=== PATIENT | female | born 1985 | race Caucasian/White ===

== ENCOUNTER 2020-06-12 11:52 | Emergency (ER) | payer BC, SELFPAY ==
[2020-06-12 12:09] VITALS: BP 122/77; PULSE 74; RESP 18; TEMP 36.6; O2SAT 97
--- NOTE | 2020-06-12 12:42 | ED.DENTAL ---
HPI - Dental/Oral General Chief complaint: Dental/Oral Stated complaint: tooth pain Time Seen by Provider: 06/12/20 12:38 Source: patient and RN notes reviewed Mode of arrival: ambulatory Limitations: no limitations History of Present Illness HPI Narrative: Patient presents today complaining of pain to the left lower wisdom tooth and surrounding gumline x3 to 4 days. States it has been painful on and off for the past year, but she has not had dental insurance coverage for several years. States she may have some coverage now ends, try to make an appointment with the dentist. Denies fever, shortness of breath, difficulty swallowing. Currently rates her pain 6/10 and has been taking ibuprofen with mild relief. MD Complaint: tooth pain Related Data Home Medications Medication Instructions Recorded Confirmed sertraline 100 mg PO DAILY 06/12/20 06/12/20 tizanidine 4 mg PO DAILY PRN 06/12/20 06/12/20 Allergies Allergy/AdvReac Type Severity Reaction Status Date / Time No Known Allergies Allergy Unverified 08/03/17 19:35 Review of Systems Review of Systems: Narrative: CONSTITUTIONAL: Denies body aches, fever, chills, or sweats. EYES: Denies visual changes, redness, or discharge. ENT: Denies rhinorrhea, congestion, sore throat, or otalgia.+ Tooth pain . RESPIRATORY: Denies cough or dyspnea. GASTROINTESTINAL: Denies abdominal pain, nausea, vomiting, or diarrhea. GENITOURINARY: Denies dysuria or hematuria. SKIN: Denies rash, itching, or wounds. MUSCULOSKELETAL: Denies back pain, joint pain, or myalgia. NEUROLOGIC: Denies headache, numbness, tingling, or weakness. PSYCH: Denies depression or anxiety. FOR[facility]LY [facility] Past Medical History Medical History (Updated 06/12/20 @ 12:46 by Chelsie Tipton, MARIA TERESA, ) Anxiety Depression Surgical History Surgical History (Updated 06/12/20 @ 12:44 by Chelsie Tipton, MARIA TERESA, BC) H/O tubal ligation History of appendectomy Comments At time of signature, I have reviewed and agree with nursing past medical, surgical, social and family history unless otherwise noted. Please see nursing chart for further information. There is no relevant family history pertinent to the presenting complaint Exam Narrative: Exam Narrative: GENERAL: Well-appearing, well-nourished, and in no acute distress. HEAD: Normocephalic, atraumatic. EYES: EOMI. No redness or drainage. Conjunctivae normal. ENT: Mucous membranes pink and moist. Nares clear. No rhinorrhea. Throat normal. Uvula midline. Pain to tooth #17 with mild surrounding gum swelling and erythema. No obvious periapical abscess. No facial swelling noted. NECK: Normal AROM. Supple. No lymphadenopathy. CHEST: No respiratory distress. Clear to auscultation. HEART: Regular rate and rhythm. No murmur appreciated. Normal peripheral pulses. EXTREMITIES: Normal range of motion. No edema. SKIN: Warm, dry, no rash. Capillary refill normal. Normal skin turgor. NEURO: No focal deficits. Alert and oriented x3. Gait steady. PSYCH: Normal affect. No signs of depression or anxiety. Course Vital Signs Vital signs: Vital Signs Temperature 97.9 F 06/12/20 12:09 Pulse Rate 74 06/12/20 12:09 Respiratory Rate 18 06/12/20 12:09 Blood Pressure 122/77 06/12/20 12:09 Pulse Oximetry 97 06/12/20 12:09 Temperature 97.9 F 06/12/20 12:09 Pulse Rate 74 06/12/20 12:09 Respiratory Rate 18 06/12/20 12:09 Blood Pressure 122/77 06/12/20 12:09 Pulse Oximetry 97 06/12/20 12:09 Reviewed. Pt has been instructed to follow up with her PCP regarding her elevated blood pressure today. MDM - Dental/Oral Differential Diagnosis Differential diagnosis: Likely gingival abscess, dental caries, toothache and dental abscess Critical Care Time Critical Care Time Critical Care Time: No Discharge Plan Discharge Clinical Impression: Dentalgia Patient Disposition: Home, Self-Care Condition: Stable Instructions: Antibiotic Form, Toothache
== END 2020-06-12 12:50 | disposition home or self-care (01) ==
PROVIDERS: Emergency Provider Nurse Practitioner; PCP Nurse Practitioner Family
DX: K08.89 Other specified disorders of teeth and supporting structures (principal); F41.9 Anxiety disorder, unspecified; F32.9 Major depressive disorder, single episode, unspecified
CPT/HCPCS: 99213; G0463

== ENCOUNTER 2020-10-07 15:21 | Emergency (ER) | payer BC, SELFPAY ==
[2020-10-07 15:30] VITALS: BP 122/77; PULSE 86; RESP 20; TEMP 36.4; O2SAT 98
[2020-10-07 15:39] VITALS: BP 122/77; PULSE 86; RESP 20; TEMP 36.4; O2SAT 98
--- NOTE | 2020-10-07 16:17 | ED.URI ---
HPI - URI/Sore Throat General Chief Complaint: Upper Respiratory Infection Stated Complaint: congestion fatigue ear pain and cough Time Seen by Provider: 10/07/20 16:17 Source: patient, RN notes reviewed and old records reviewed Mode of arrival: ambulatory Limitations: no limitations History of Present Illness HPI Narrative: 35-year-old female who presents to [facility] with complaints of sore throat, cough, fatigue, body aches, and itchy ears since yesterday. Patient states that she has been taking Sudafed, Ibuprofen and she has also started taking some left over Augmentin that she had. Patient reports that she has had some greenish colored nasal drainage and some post nasal drainage, denies any known fevers, chills, or sweats, denies any shortness of breath at rest or with activity. Patient does have history of tobacco abuse. MD elicited complaint: cough, sore throat, rhinorrhea and nasal congestion Pertinent past history: other (tpbacco abuse) Onset (ago): day(s) (day 2 of symptoms) Consistency: constant Severity: moderate Pain scale (0-10): 6 Description of mucous: green Able to tolerate fluids by mouth: Yes Exacerbating factors: swallowing Relieving factors: nothing Associated symptoms: myalgias, rhinorrhea, nasal congestion, sore throat, cough and ear pain (itchy) Treatments prior to arrival: ibuprofen and other (sudafed and left over Augmentin) Related Data Home Medications Medication Instructions Recorded Confirmed sertraline 100 mg PO DAILY 06/12/20 10/07/20 tizanidine 4 mg PO DAILY PRN 06/12/20 10/07/20 Allergies Allergy/AdvReac Type Severity Reaction Status Date / Time No Known Allergies Allergy Verified 10/07/20 15:39 Review of Systems Review of Systems: Narrative: CONSTITUTIONAL: Denies fever, chills, or sweats. EYES: Denies visual changes, redness, or discharge. ENT: Positive rhinorrhea, congestion, sore throat, bilateral itchy ears no robyn CARDIOVASCULAR: Denies chest pain, palpitations, or edema. RESPIRATORY positive cough denies dyspnea. GASTROINTESTINAL: Denies abdominal pain, nausea, vomiting, or diarrhea. GENITOURINARY: Denies dysuria or hematuria. SKIN: Denies rash or itching. MUSCULOSKELETAL: history of chronic back pain,no specific joint pain, positive body aches and fatigue NEUROLOGIC: Denies headache, numbness, or weakness. PSYCHIATRIC: Positive history of anxiety or depression. All systems reviewed & are unremarkable except as noted in HPI and below PMFSH Past Medical History Medical History (Updated 10/10/20 @ 14:10 by Lilliana Temple NP) Anxiety Back pain Concussion 2007 has headaches since Depression Surgical History Surgical History (Updated 10/10/20 @ 14:09 by Lilliana Temple NP) H/O tubal ligation History of appendectomy History of placement of ear tubes as child Previous section Family History Family History (Updated 10/10/20 @ 14:12 by Lilliana Temple NP) Grandparent Carcinoma of colon Diabetes mellitus Mother Heart disease Father Cancer Social History Social History (Updated 10/10/20 @ 14:15 by Lilliana Temple NP) Smoking packs per day: 0.5 Smoking cigarettes per day: 10.0 Years smoked: 18 Smoking pack-years: 9.00 Smoking status: Current every day smoker Alcohol intake: current Alcohol use details: social Substance use: former Last use: back pain and headaches used Tylenol with Codeine prn Living arrangements: with family Gender identity (if verbalized by the patient): Female Comments At time of signature, agree with nursing past medical, surgical, social and family history. There is no relevant family history pertinent to the presenting complaint Exam Narrative: Exam Narrative: GENERAL: Well-appearing, well-nourished, and in no acute distress. HEAD: Normocephalic, atraumatic. EYES: PERRLA and EOMI. ENT: Nares red with greenish to clear rhinorrhea no epistaxis. Mucous membranes moist.TM's normal wit
== END 2020-10-07 16:50 | disposition home or self-care (01) ==
PROVIDERS: Emergency Provider Registered Nurse; PCP Nurse Practitioner Family
DX: J06.9 Acute upper respiratory infection, unspecified (principal); F41.9 Anxiety disorder, unspecified; F32.9 Major depressive disorder, single episode, unspecified
CPT/HCPCS: 87081; 87880; 99213; G0463

== ENCOUNTER 2021-05-26 14:22 | Emergency (ER) | payer BC, SELFPAY ==
[2021-05-26 14:26] VITALS: BP 122/78; PULSE 91; RESP 20; TEMP 36.4; O2SAT 99
--- NOTE | 2021-05-26 14:26 | ED.URI ---
HPI - URI/Sore Throat General Stated Complaint: Eye Swelling Time Seen by Provider: 05/26/21 14:23 Source: patient Mode of arrival: ambulatory Limitations: no limitations History of Present Illness HPI Narrative: Ms. Land is a 36-year-old female patient presenting to the clinic today with complaints of left upper eye swelling. She reports she noticed this first this morning. Reports that she is having a lot of pain and swelling to the left upper eyelid. No known injury Related Data Home Medications Medication Instructions Recorded Confirmed sertraline 100 mg PO DAILY 06/12/20 10/07/20 tizanidine 4 mg PO DAILY PRN 06/12/20 10/07/20 diclofenac sodium 75 mg PO BID 05/26/21 05/26/21 hydroxyzine HCl 25 mg PO TID PRN 05/26/21 05/26/21 Allergies Allergy/AdvReac Type Severity Reaction Status Date / Time No Known Allergies Allergy Verified 05/26/21 14:43 Review of Systems Review of Systems: Pertinent positives per HPI. Patient denies any fever, chills, rash, headache, visual changes, dizziness, cough, shortness of breath, chest pain, palpitations, nausea, vomiting, diarrhea, constipation, abdominal pain, or any urinary issues. [facility] Past Medical History Medical History (Updated 05/26/21 @ 14:32 by Drake Treviño, FRANCIS) Anxiety Back pain Concussion 2008 has headaches since Depression Surgical History Surgical History (Updated 10/10/20 @ 14:09 by Lilliana Temple NP) H/O tubal ligation History of appendectomy History of placement of ear tubes as child Previous section Family History Family History (Updated 10/10/20 @ 14:12 by Lilliana Temple NP) Grandparent Carcinoma of colon Diabetes mellitus Mother Heart disease Father Cancer Social History Social History (Updated 10/10/20 @ 14:15 by Lilliana Temple NP) Smoking packs per day: 0.5 Smoking cigarettes per day: 10.0 Years smoked: 18 Smoking pack-years: 9.00 Smoking status: Current every day smoker Alcohol intake: current Alcohol use details: social Substance use: former Last use: back pain and headaches used Tylenol with Codeine prn Gender identity (if verbalized by the patient): Female Comments At the time of my signature, I reviewed and agree with the nursing past medical, surgical, social, and family history. There is no relevant family history pertinent to the patient complaint. Exam Narrative: General: Well-developed, well nourished, in no apparent distress Head: Normocephalic, atraumatic Eyes: Pupils equally round and reactive to light bilaterally, EOM intact, sclera and conjunctive clear, no discharge, internal pustule to the left outer upper eyelid, tender to palpation with localized swelling. Ears: TMs intact and clear, ear canals clear, no drainage, grossly hearing normal. Nose: Nares patent, no discharge, no inflammation, no sinus tenderness. Mouth: Oral pharynx without lesions or masses, good dentition, MMM. Neck: Supple, trachea midline, no enlargement of anterior or posterior cervical nodes, no thyroid masses or goiter palpable. Cardio: Regular rate and rhythm, s1 and s2 normal, no murmur appreciated. Resp: Clear to auscultation bilaterally, no rhonchi, rales, wheezing or rubs Course Course Emergency Course: Portions of this record may have been created with voice recognition software. Level of Care: Express Care Visit Vital Signs Vital signs: Vital signs reviewed MDM - URI/Sore Throat Differential Diagnosis Differential diagnosis: Likely viral infection and other (Conjunctivitis, foreign body) Discharge Plan Discharge Clinical Impression: Internal hordeolum of left eye Qualifiers: Eyelid: upper Qualified Code(s): H00.024 - Hordeolum internum left upper eyelid Patient Disposition: Home, Self-Care Condition: Stable Instructions: Antibiotic Nathalie Avalos (ED) Additional Instructions: Eyedrops as directed. Warm compresses Tylenol Motrin as needed
== END 2021-05-26 14:40 | disposition home or self-care (01) ==
PROVIDERS: Emergency Provider Nurse Practitioner Family; PCP Nurse Practitioner Family
DX: H00.024 Hordeolum internum left upper eyelid (principal); F17.210 Nicotine dependence, cigarettes, uncomplicated; F41.9 Anxiety disorder, unspecified; F32.A Depression, unspecified
CPT/HCPCS: 99213; G0463

== ENCOUNTER 2021-07-10 12:43 | Emergency (ER) | payer BC, SELFPAY ==
[2021-07-10 12:50] VITALS: BP 122/81; PULSE 83; RESP 16; TEMP 36.9; O2SAT 99
--- NOTE | 2021-07-10 13:33 | ED.EAR ---
HPI - Ear Problem General Chief complaint: Ear Stated complaint: left ear pain, congestion Time Seen by Provider: 07/10/21 13:33 Source: patient, RN notes reviewed and old records reviewed Mode of arrival: ambulatory Limitations: no limitations History of Present Illness HPI Narrative: 36-year-old female who presents to [facility] with complaints of left ear pain, sinus congestion with postnasal drainage since yesterday denies any fevers chills or sweats or any body aches. Patient reports that her left ear feels clogged and is painful. She reports that her sinuses feel full with some post nasal drainage noted.Patient reports that she had COVID in March of 2021, has not had COVID or Flu shot.Patient reports that she has put Debrox and Hydrogen peroxide in her left ear, she has taken Ibuprofen and page [place] cold medicine. MD Complaint: ear pain and decreased hearing Location: left ear Duration: constant Severity: moderate Discharge from ear: Reports yes - purulent Treatment prior to arrival: oral analgesic and other (Debrox and hydrogen peroxide) Related Data Home Medications Medication Instructions Recorded Confirmed sertraline 100 mg PO DAILY 06/12/20 07/10/21 tizanidine 4 mg PO DAILY PRN 06/12/20 07/10/21 diclofenac sodium 75 mg PO BID 05/26/21 07/10/21 hydroxyzine HCl 25 mg PO TID PRN 05/26/21 07/10/21 Allergies Allergy/AdvReac Type Severity Reaction Status Date / Time No Known Allergies Allergy Verified 07/10/21 13:18 Review of Systems Review of Systems: CONSTITUTIONAL: Denies fever, chills, or sweats. EYES: Denies visual changes, redness, or discharge. ENT: Positive for rhinorrhea, congestion,no sore throat, positive for left ear otalgia. CARDIOVASCULAR: Denies chest pain, palpitations, or edema. RESPIRATORY: Denies cough or dyspnea. GASTROINTESTINAL: Denies abdominal pain, nausea, vomiting, or diarrhea. GENITOURINARY: Denies dysuria or hematuria. SKIN: Denies rash or itching. MUSCULOSKELETAL: Denies back pain, joint pain, or myalgia. NEUROLOGIC: Denies headache, numbness, or weakness. PSYCHIATRIC: Denies anxiety or depression. All systems reviewed & are unremarkable except as noted in HPI and below PMFSH Past Medical History Medical History Anxiety Back pain Concussion 2008 has headaches since Depression Surgical History Surgical History H/O tubal ligation History of appendectomy History of placement of ear tubes as child Previous section Family History Family History Grandparent Carcinoma of colon Diabetes mellitus Mother Heart disease Father Cancer Social History Social History Smoking packs per day: 0.5 Smoking cigarettes per day: 10.0 Years smoked: 18 Smoking pack-years: 9.00 Smoking status: Current every day smoker Alcohol intake: current Alcohol use details: social Substance use: former Last use: back pain and headaches used Tylenol with Codeine prn Gender identity (if verbalized by the patient): Female Comments At time of signature, agree with nursing past medical, surgical, social and family history. There is no relevant family history pertinent to the presenting complaint Exam Narrative: GENERAL: Well-appearing, well-nourished, and in no acute distress. HEAD: Normocephalic, atraumatic. EYES: PERRLA and EOMI. ENT: Nares red with clear rhinorrhea no epistaxis. Mucous membranes moist. Left TM normal with canal excoriated swollen and painful,minimal yellowish drainage noted. Right TM noted. no tonsil swelling or lesions,pot nasal drainage present. NECK: Supple.no lymphadenopathy CHEST: Clear to auscultation. No respiratory distress.no cough noted, SAO2 99% on room air HEART: Regular rate and rhythm. No murmur heard. Normal per
== END 2021-07-10 13:57 | disposition home or self-care (01) ==
PROVIDERS: Emergency Provider Registered Nurse; PCP Nurse Practitioner Family
DX: H60.502 Unspecified acute noninfective otitis externa, left ear (principal); J06.9 Acute upper respiratory infection, unspecified; F17.210 Nicotine dependence, cigarettes, uncomplicated; F41.9 Anxiety disorder, unspecified; F32.A Depression, unspecified
CPT/HCPCS: 99213; G0463

== ENCOUNTER 2022-02-03 10:55 | Emergency (ER) | payer OTHER, SELFPAY ==
[2022-02-03 11:22] VITALS: BP 118/80; PULSE 68; RESP 20; TEMP 36.4; O2SAT 99
--- NOTE | 2022-02-03 12:20 | ED.URI ---
HPI - URI/Sore Throat General Chief Complaint: Upper Respiratory Infection Stated Complaint: Sore Throat Time Seen by Provider: 02/03/22 12:32 Source: patient and RN notes reviewed Mode of arrival: ambulatory Limitations: no limitations History of Present Illness HPI Narrative: 36-year-old female presents with concern for sore throat, nasal congestion, cough. Reports symptoms started yesterday. She reports a recent COVID infection. She reports her daughter had strep throat last week. She reports her other daughter is ill currently. She reports she has been taking some [id number] medications with mild relief. MD elicited complaint: cough and nasal congestion Related Data Allergies Allergy/AdvReac Type Severity Reaction Status Date / Time No Known Allergies Allergy Verified 02/03/22 11:38 Review of Systems Review of Systems: CONSTITUTIONAL: Denies malaise, chills, sweats, or fever. EYES: Denies visual changes, redness, or discharge. ENT: Reports rhinorrhea, congestion, sore throat. Denies sinus pain, otalgia CARDIOVASCULAR: Denies chest pain, palpitations, or edema. RESPIRATORY: Reports cough. Denies dyspnea. GASTROINTESTINAL: Denies abdominal pain, nausea, vomiting, diarrhea SKIN: Denies rash or itching. MUSCULOSKELETAL: Denies myalgia. NEUROLOGIC: Denies headache. All systems reviewed & are unremarkable except as noted in HPI and below PMFSH Past Medical History Medical History Anxiety Back pain Concussion 2008 has headaches since Depression Surgical History Surgical History H/O tubal ligation History of appendectomy History of placement of ear tubes as child Previous section Family History Family History Grandparent Carcinoma of colon Diabetes mellitus Mother Heart disease Father Cancer Social History Social History Smoking packs per day: 0.5 Smoking cigarettes per day: 10.0 Years smoked: 18 Smoking pack-years: 9.00 Smoking status: Current every day smoker Alcohol intake: current Alcohol use details: social Substance use: former Last use: back pain and headaches used Tylenol with Codeine prn Gender identity (if verbalized by the patient): Female Comments At time of signature, agree with nursing past medical, surgical, social and family history. There is no relevant family history pertinent to the presenting complaint Exam Narrative: GENERAL: Well-appearing, well-nourished, and in no acute distress. HEAD: Normocephalic EYES: PERRLA, conjunctivae clear ENT: Nares clear, turbinates edematous and erythematous, clear discharge. Mucous membranes moist. TM pearly aly with sharp light reflex bilaterally; no tragal tenderness. Oropharynx not erythematous without lesions. Tonsils not enlarged and without exudate, no drooling, no hoarseness, no trismus, uvula midline. NECK: Supple. No lymphadenopathy CHEST: Clear to auscultation, breath sounds equal. No wheezing, rhonchi, rales, or stridor. No respiratory distress, speaks in full sentences. HEART: Regular rate and rhythm. No murmur heard. SKIN: Warm, dry, no rash. NEURO: Alert and oriented x3. PSYCH: Normal mood and affect Course Course Emergency Course: Patient is aware of diagnosis, understands and agrees to treatment plan. Anticipatory guidance given. Patient agrees to follow-up as directed and is aware of reasons to seek care at the emergency department. Portions of this record may have been created with voice recognition software Level of Care: Express Care Visit Vital Signs Vital signs: Vital Signs Temperature 97.6 F 02/03/22 11:22 Pulse Rate 68 02/03/22 11:22 Respiratory Rate 20 02/03/22 11:22 Blood Pressure 118/80 02/03/22 11:22 Pulse Oximetry 99 02/03/22 11:22
== END 2022-02-03 12:45 | disposition home or self-care (01) ==
PROVIDERS: Emergency Provider Nurse Practitioner; PCP Nurse Practitioner Family
DX: J06.9 Acute upper respiratory infection, unspecified (principal)
CPT/HCPCS: 87081; 87880; 99213; G0463

== ENCOUNTER 2024-03-06 17:36 | Emergency (ER) | payer OTHER, SELFPAY ==
[2024-03-06 17:44] VITALS: BP 124/75; PULSE 65; RESP 16; TEMP 36.4; O2SAT 99
--- NOTE | 2024-03-06 17:51 | ED.DENTAL ---
HPI - Dental/Oral General Chief complaint: Dental/Oral Stated complaint: Right Jaw/Neck Pain/Vomiting Time Seen by Provider: 03/06/24 17:53 Source: patient Mode of arrival: ambulatory History of Present Illness HPI Narrative: 38 y/o female presented for c/o right jaw pain. Onset yesterday. Pain is described as severe, radiating into the ear and down the neck. Endorses pain with chewing. Taking ibuprofen and using heating pad without much relief. Denies facial swelling or broken teeth. MD Complaint: tooth pain Related Data Home Medications ?Medication ?Instructions ?Recorded ?Confirmed ?Last Taken ?Type aripiprazole 2 mg tablet mg 03/06/24 Unknown History cetirizine 10 mg tablet mg 03/06/24 Unknown History diclofenac sodium 50 mg mg PO 03/06/24 Unknown History tablet,delayed release gabapentin 300 mg capsule mg 03/06/24 Unknown History propranolol 20 mg tablet mg 03/06/24 Unknown History sertraline 100 mg tablet mg 03/06/24 Unknown History Allergies Allergy/AdvReac Type Severity Reaction Status Date / Time No Known Allergies Allergy Verified 03/06/24 17:46 Review of Systems Review of Systems: CONSTITUTIONAL: Denies body aches, fever, chills ENT: Denies rhinorrhea, congestion, sore throat, or otalgia. Reports dental/jaw pain CARDIOVASCULAR: Denies chest pain, palpitations RESPIRATORY: Denies cough or dyspnea. SKIN: Denies rash, itching, or wounds. MUSCULOSKELETAL: Denies myalgia. NEUROLOGIC: Denies headache, numbness, tingling, or weakness. [facility] Past Medical History Medical History Concussion 2008 has headaches since Back pain Depression Anxiety Surgical History Surgical History History of placement of ear tubes as child Previous section H/O tubal ligation History of appendectomy Family History Family History Grandparent Carcinoma of colon Diabetes mellitus Mother Heart disease Father Cancer Social History Social History Smoking packs per day: 0.5 Smoking cigarettes per day: 10.0 Years smoked: 18 Smoking pack-years: 9.00 Smoking status: Current every day smoker Alcohol intake: current Alcohol use details: social Substance use: former Last use: back pain and headaches used Tylenol with Codeine prn Living arrangements: with family Gender identity (if verbalized by the patient): Female Comments At time of signature, I have reviewed and agree with nursing past medical, surgical, social and family history unless otherwise noted. Please see nursing chart for further information. There is no relevant family history pertinent to the presenting complaint Exam Narrative: GENERAL: Appears in pain; no acute distress. HEAD: Normocephalic, atraumatic. EYES: EOMI. No redness or drainage. Conjunctivae normal. ENT: Dental pain location of #32, no apparent abscess. No facial swelling. Right TMJ area is tender with light palpation. Mucous membranes pink and moist. TMs normal bilaterally. Throat normal. no dysphagia, odynophagia, dysphonia, or dyspnea. No uvular deviation or soft palate edema. NECK: Normal AROM. No lymphadenopathy. no induration below mandible, no neck pain. CHEST: No respiratory distress. SKIN: Warm, dry, no rash. Normal skin turgor. NEURO: No focal deficits. Alert and oriented x3. Gait steady. Course Course Emergency Course: Patient is aware of diagnosis, understands and agrees to treatment plan. Anticipatory guidance given. Patient agrees to follow-up as directed and is aware of reasons to seek care at the emergency department. Portions of this record may have been created with voice recognition software Level of Care: Express Care Visit Vital Signs Vital signs: Vital Signs Temperature 97.5 F L 03/06/24 17:44 Pulse Rate 65 03/06/24 17:44 Respiratory Rate 16 03/06/24 17:44 Blood Pressure 124/75 03/06/24 17:44 Pulse Oximetry 99 03/06/24 17:44 Oxygen Delivery Room Air 03/06/24 17:44 Temperature 97.5 F L 03/06/24 17:44 Pulse Rate 65 03/06/24 17:44 Respiratory Rate 16 03/06/24 17:44 Blood Pressure 124/75 03/06/24 17:44 Pulse Oximetry 99 03/06/24 17:44 Oxygen Delivery Room Air 03/06/24 17:44 MDM - Dental/Oral MDM Narrative Medical decision making narrative: Patients pain and complaint coupled with physical findings are most consistent with TMJ pain vs wisdom tooth pain. There are no focal signs of space occupying lesions that are compromising to the airway; Patient is non-toxic appearing. The floor of the mouth is soft with no signs of Lyle's Angina; Patient is without trismus or drooling and able to swallow secretions. Patient is felt appropriate for discharge home with dental follow up. States she has muscle relaxer. Rx steroid. Discussed physical exam findings. Advised supportive measures and signs/symptoms to go to the ER. Differential Diagnosis Differential diagnosis: Likely gingival abscess, dental caries, toothache, dental abscess, fracture of tooth, aphthous ulcer and other (TMJ pain, trigeminal neuralgia) Discharge Plan Discharge Clinical Impression: Mandible pain Patient Disposition: Home, Self-Care Condition: Stable Instructions: Antibiotic Form Additional Instructions: May apply heat or ice to the face Gentle brushing and flossing. Rinse mouth with warm salt water at least 2 times a day. Alternate Tylenol and ibuprofen as needed for pain taking muscle relaxers as previously prescribed Follow-up with the dentist and pcp as soon as possible Go to the ER for worsening symptoms or concerns Patient Language: Stateless Prescriptions: New methylprednisolone [Medrol (Errol)] 4 mg tablets,dose pack See Rx Instructions .ROUTE .COMPLEX Qty: 21 0RF Rx Instructions: orally per package directions No Action cetirizine 10 mg tablet sertraline 100 mg tablet gabapentin 300 mg capsule diclofenac sodium 50 mg tablet,delayed release (DR/EC) PO propranolol 20 mg tablet aripiprazole 2 mg tablet Follow-up/Referrals: Jayden,Lorin Hartley APN [Primary Care Provider] - Stand Alone Forms: Work/School Release IP Time of Disposition: 18:01
== END 2024-03-06 18:05 | disposition home or self-care (01) ==
PROVIDERS: Emergency Provider Nurse Practitioner Family; PCP Nurse Practitioner Family
DX: R68.84 Jaw pain (principal); F17.210 Nicotine dependence, cigarettes, uncomplicated
CPT/HCPCS: 99213; G0463

== ENCOUNTER 2024-04-10 15:02 | Emergency (ER) | payer MEDICAID, SELFPAY ==
[2024-04-10 15:06] VITALS: BP 118/77; PULSE 86; RESP 14; TEMP 36.7; O2SAT 98
--- NOTE | 2024-04-10 15:23 | ED_ITS ---
HPI - URI/Sore Throat General Chief Complaint: Upper Respiratory Infection Stated Complaint: congestion/not feeling well Time Seen by Provider: 04/10/24 15:16 Source: patient and RN notes reviewed Mode of arrival: ambulatory Limitations: no limitations History of Present Illness HPI Narrative: 39-year-old female presents with concern for body aches, slight cough and runny nose that started this morning. She reports she missed work. She reports she is taking cold medicines [id number]. She reports she felt like she had a fever but she did not take her temperature MD elicited complaint: fever Related Data Home Medications ?Medication ?Instructions ?Recorded ?Confirmed ?Last Taken ?Type aripiprazole 2 mg tablet mg 03/06/24 Unknown History cetirizine 10 mg tablet mg 03/06/24 Unknown History diclofenac sodium 50 mg mg PO 03/06/24 Unknown History tablet,delayed release gabapentin 300 mg capsule mg 03/06/24 Unknown History propranolol 20 mg tablet mg 03/06/24 Unknown History sertraline 100 mg tablet mg 03/06/24 Unknown History Allergies Allergy/AdvReac Type Severity Reaction Status Date / Time No Known Allergies Allergy Verified 03/06/24 17:46 Review of Systems Review of Systems: CONSTITUTIONAL: Reports malaise, fever. EYES: Denies visual changes, redness, or discharge. ENT: Reports rhinorrhea. Denies congestion, sinus pain, otalgia and sore throat. CARDIOVASCULAR: Denies chest pain, palpitations, or edema. RESPIRATORY: Reports mild cough. Denies dyspnea. GASTROINTESTINAL: Denies abdominal pain, nausea, vomiting, diarrhea SKIN: Denies rash or itching. MUSCULOSKELETAL: Reports myalgia. NEUROLOGIC: Denies headache. All systems reviewed & are unremarkable except as noted in HPI and below PMFSH Past Medical History Medical History Concussion 2008 has headaches since Back pain Depression Anxiety Surgical History Surgical History History of placement of ear tubes as child Previous section H/O tubal ligation History of appendectomy Family History Family History Grandparent Carcinoma of colon Diabetes mellitus Mother Heart disease Father Cancer Social History Social History Smoking packs per day: 0.5 Smoking cigarettes per day: 10.0 Years smoked: 18 Smoking pack-years: 9.00 Smoking status: Current every day smoker Alcohol intake: current Alcohol use details: social Substance use: former Last use: back pain and headaches used Tylenol with Codeine prn Living arrangements: with family Gender identity (if verbalized by the patient): Female Comments At time of signature, agree with nursing past medical, surgical, social and family history. There is no relevant family history pertinent to the presenting complaint Exam Narrative: GENERAL: Well-appearing, well-nourished, and in no acute distress. HEAD: Normocephalic EYES: PERRLA, conjunctivae clear ENT: Nares clear. Mucous membranes moist. TM pearly aly with sharp light reflex bilaterally; no tragal tenderness. Oropharynx not erythematous without lesions. Tonsils not enlarged and without exudate, no drooling, no hoarseness, no trismus, uvula midline. NECK: Supple. No lymphadenopathy CHEST: Clear to auscultation, breath sounds equal. No wheezing, rhonchi, rales, or stridor. No respiratory distress, speaks in full sentences. HEART: Regular rate and rhythm. No murmur heard. SKIN: Warm, dry, no rash. NEURO: Alert and oriented x3. PSYCH: Normal mood and affect Course Course Emergency Course: Patient is aware of diagnosis, understands and agrees to treatment plan. Anticipatory guidance given. Patient agrees to follow-up as directed and is aware of reasons to seek care at the emergency department. Portions of this record may have been created with voice recognition software Level of Care: Express Care Visit Vital Signs Vital signs: Vital Signs Temperature 98.0 F 04/10/24 15:06 Pulse Rate 86 04/10/24 15:06 Respiratory Rate 14 04/10/24 15:06 Blood Pressure 118/77 04/10/24 15:06 Pulse Oximetry 98 04/10/24 15:06 Oxygen Delivery Room Air 04/10/24 15:06 Temperature 98.0 F 04/10/24 15:06 Pulse Rate 86 04/10/24 15:06 Respiratory Rate 14 04/10/24 15:06 Blood Pressure 118/77 04/10/24 15:06 Pulse Oximetry 98 04/10/24 15:06 Oxygen Delivery Room Air 04/10/24 15:06 Reviewed. MDM - URI/Sore Throat MDM Narrative Medical decision making narrative: Differential diagnosis considered: Blair virus, strep pharyngitis, allergic rhinitis, upper respiratory tract infection, sinusitis, rhinosinusitis, nasopharyngitis. viral pharyngitis, otitis media, otitis externa, pneumonia, bronchitis, viral cough syndrome, viral syndrome, and influenza. Exam findings show no acute concerns or changes; patient is non-toxic appearing and is in no distress. Patient is appropriate for outpatient treatment and follow-up. Lab Data Attestation: I reviewed the patient's lab results. Critical Care Time Critical Care Time Critical Care Time: No Discharge Plan Discharge Clinical Impression: Acute viral syndrome Patient Disposition: Home, Self-Care Condition: Stable Instructions: Viral Syndrome (ED) Additional Instructions: -Take strict precautions to prevent the spread of your virus. Be diligent about covering your cough (even when you are alone) and washing your hands frequently. -You may contagious until you have been symptom and/or fever free for 24 hours without fever reducing medicine -Alternate Ibuprofen and Tylenol for pain and fever relief (per package directions) -Drink plenty of fluid - drink fluid with electrolytes such as Gatorade or other oral re-hydration solution. Avoid caffeine, which can make dehydration worse. -Get plenty of rest to help your body heal. -Use a cool mist humidifier for chest and nasal congestion. -Eat RAW honey or use cough drops to ease throat discomfort -Do not smoke or expose children to secondhand smoke -Wash your hands frequently. -Please follow-up with your primary care doctor in the next 1-2 days if your symptoms do not improve. -If you have any worsening of symptoms or any other concerns please go to the ED immediately. -Please take medications as prescribed and continue taking your home medications as usual. Patient Language: Slovak Prescriptions: No Action cetirizine 10 mg tablet sertraline 100 mg tablet gabapentin 300 mg capsule diclofenac sodium 50 mg tablet,delayed release (DR/EC) PO propranolol 20 mg tablet aripiprazole 2 mg tablet Follow-up/Referrals: Jayden,Lorin Hartley APN [Primary Care Provider] - Stand Alone Forms: Work/School Release IP Time of Disposition: 15:24
--- OUTSIDE RECORDS SUMMARY | 2024-04-13 14:17 | XMS_ITS | Clinical Summary ---
Author Organization [facility] Address [address] [place] [address] Phone Care Team Providers Care Principal Scientist Name Role Phone Unavailable Unavailable Unavailable Reason for Visit and Chief Complaint * PHONE CALL Problems Includes: Problems addressed during this encounter and other active Problems All Visits Onset Date Resolved Date Provider Condition S tatus Depression 11/20/2015 ULISES KIDD MD Active Last Documented On 11/20/2015 1:24PM ; [facility] Note: Unchanged Gestational edema, third trimester 08/27/2015 ULISES KIDD MD Active Last Documented On 08/27/2015 3:49PM ; [facility] Note: Unchanged Maternal care for excess growth, third tri, fetus 1 08/27/2015 ULISES KIDD MD Active Last Documented On 08/27/2015 3:49PM ; [facility] Note: Unchanged Encounter for suprvsn of normal , third trimester 08/27/2015 ULISES KIDD MD Active Last Documented On 08/27/2015 3:49PM ; [facility] Note: Unchanged 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 RUDY COOPER RN SIMEON Active Last Documented On 3 1:54PM ; [facility] History of Cervical Dysplasia 12/27/2012 RUDY COOPER RN Cristy P BC Active Last Documented On 12/27/2012 2:21PM ; [facility] Note: Unchanged History of Urinary Tract Infection 12/27/2012 RUDY COOPER RN Cristy P BC Active Last Documented On 12/27/2012 2:21PM ; [facility] Note: Unchanged Smoking Cigarettes 12/27/2012 RUDY GARCIA RN SIMEON BC Active Last Documented On 12/27/2012 2:21PM ; [facility] Note: Unchanged - 1 PACK A DAY FOR TEN Y EARS Plan of Treatment No Plan of Treatment Recorded Assessments Includes: Assessments from this encounter No Assessments Recorded Medical Equipment - Implanted Devices Includes: Current Devices No Medical Equipment Recorded Medications Includes: Medications discussed during this encounter and other current Medications Current Medications (continue as prescribed) Acyclovir 400MG Oral Tablet 04/05/2017 Provider: ULISES KIDD MD Diagnosis: Si tabs 2 x per day x 5 days prn outbreaks. Last Documented On 04/05/2017 2:06PM By ULISES KIDD MD ; [facility] TiZANidine HCl 4MG Oral Tablet 04/05/2017 Provider: Diagnosis: Last Documented On 8 1:25PM By ASH MORALES Eyal ; [facility] Diclofenac Sodium 75MG Oral Tablet, enteric coated Provider: Diagnosis: Last Documented On 8 1:25PM By ASH MORALES Eyal ; [facility] Stool Softener 100MG Oral Capsule, conventional 2017 Provider: Diagnosis: Last Documented On 8 1:27PM By ASH MORALES Eyal ; [facility] Tylenol with Codeine #4 300-60MG Oral Tablet 8 Provider: Diagnosis: Last Documented On 8 1:28PM By SAH MORALES Eyal ; [facility] Sertraline HCl 50 MG Tablet 03/02/2016 Provider: ULISES KIDD MD Diagnosis: Mental and behav rl disorders assoc with the puerperium, NEC One tablet daily Last Documented On 03/02/2016 4:47PM By ULISES KIDD MD ; [facility] Formula 27-1 MG Tablet 04/09/2015 Provider: ULISES KIDD MD Diagnosis: Encounter for roberts prvsn of normal , first trimester One tablet daily generic pnv with 1 mg folic acid, may substitute as needed to fill Last Documented On 04/09/2015 10:20AM By UILSES KIDD MD ; [facility] Medications Administered Includes: Administered Medications from this encounter No Administered Medications Recorded Results Includes: Results discussed during this encounter No Results Recorded For Specified Dates History of Present Illness Includes: History of Present Illness from this encounter No History of Present Illness Recorded Social History No Social History Recorded - Smoking Status Unknown Medical History Includes: Medical History addressed during this encounter No Medical History Recorded Family History Includes: Family History addressed during this encounter No Family History Recorded Review of Systems Includes: Review of Systems from this encounter No Review of Systems Recorded Mental Status Includes: Mental Status from this encounter No Mental Status Recorded Functional Status Includes: Functional Status from this encounter No Functional Status Recorded Physical Exam Includes: Physical Exam from this encounter No Physical Exam Recorded Allergies Includes: Active Allergies Substance Type Reaction Onset Date Resolved Date Statu s Codeine Allergy Nausea, Vomiting , Diarrhea / Diarrheal disorder, Shock, Unconsciousness 02/16/2011 Resolved Last Documented On 04/09/2015 9:39AM ; [facility] Note: THROW-UP AND PASS OUT Encounters Encounter Provider Location Date Check-In Time Check-Out Time Diagnosis * PHONE CALL ULISES KIDD MD 01/11/2017 3:10PM 11:59PM Clinical Notes Includes: Clinical Notes from this encounter No Clinical Notes Recorded
--- OUTSIDE RECORDS SUMMARY | 2024-04-13 14:17 | XMS_ITS | Patient Health Summary ---
Author Organization [facility] [employer] Address [facility] [place] [address] Care Team Providers Care Flat Bed Knitter Name Role Phone Unavailable Primary Care Provider Unavailabl e Note from [facility],non-owned Affiliates and Associated Physician Practices is amultiple site organization consisting of ambulatory clinics and hospital sitesin [place], [place], [place] and [place]. This disclosure is being madepursuant to the Care Everywhere program and may not contain all information available regarding this patient. Last updated 17.[facility] [employer] Medications * Be aware that medications may not be up to date on this document. Alwaysverify current medications with the patient. * acyclovir (ZOVIRAX) 400 MG tablet(Started 04/05/2017) 2 refills left * tretinoin (RETIN-A) 0.05 % cream(Started 04/29/2017) 11 refills left * clindamycin (CLEOCIN) 1 % lotion(Started 04/29/2017) 11 refills left * fluticasone propionate (FLONASE) 50 MCG/ACT nasal spray(Started 01/06/2017) * acetaminophen-codeine (TYLENOL #4) 300-60 MG tablet(Started 01/12/2017) * docusate sodium (COLACE) 100 MG capsule(Started 01/06/2017) * fluconazole (DIFLUCAN) 150 MG tablet(Started 12/07/2016) * tiZANidine (ZANAFLEX) 4 MG tablet(Started 12/14/2016) * sulfamethoxazole-trimethoprim (BACTRIM DS; SEPTRA DS) 800-160 MG tablet (Started 01/11/2017) * hydrocortisone (HYTONE) 2.5 % cream(Started 11/17/2016) * diclofenac sodium EC (VOLTAREN) 75 MG tablet(Started 01/06/2017) * spironolactone (ALDACTONE) 100 MG tablet(Started 08/05/2017) Take one tablet by mouth daily. 30 day 2 refills remaining Social History Tobacco Use Types Packs/Day Years Used Date Smoking Tobacco: Every Day Cigarettes Smokeless Tobacco: Never Alcohol Use Standard Drinks/Week Comments Yes 0 (1 standard drink = 0.6 oz pur e alcohol) Sex and Gender Information Value Date Recorded Sex Assigned at Not on file Gender Identity Not on file Sexual Orientation Not on file Last Filed Vital Signs Vital Sign Reading Time Taken Comments Blood Pressure - - Pulse - - Temperature - - Respiratory Rate - - Oxygen Saturation - - Inhaled Oxygen Concentration - - Weight 78.5 kg (173 lb) 04/29/2017 12:56 PM PHYSICAL THERAPY INSTRUCTOR Height 167.6 cm (5' 6 ) 04/29/2017 12:56 PM PHYSICAL THERAPY INSTRUCTOR Body Mass Index 27.92 04/29/2017 12:56 PM PHYSICAL THERAPY INSTRUCTOR Procedures * XR CERVICAL SPINE 2 OR 3VW(Performed 01/26/2017) Results * XR CERVICAL SPINE 2 OR 3VW (01/26/2017 10:12 AM PHYSICAL THERAPY INSTRUCTOR) Anatomical Region Laterality Modality Spine Other Impressions 01/26/2017 10:27 AM PHYSICAL THERAPY INSTRUCTOR IMPRESSION: No acute compression fracture or subluxation of the cervical spine. Report dictated by Luis Armando Maldonado MD (residential solar sales consultant). I, Dr. CHAITANYA ROWE MD have personally reviewed and interpreted this examination/study. This report was electronically signed by CHAITANYA ROWE MD ??on 01/26/2017 10:27 AM . Narrative 01/26/2017 10:27 AM PHYSICAL THERAPY INSTRUCTOR EXAMINATION: XR SPINE CERVICAL 2 ??VIEWS HISTORY: Neck pain COMPARISON: ??No prior study is available for comparison at the time of this dictation. FINDINGS: The alignment is maintained. The vertebral body heights and intervertebral disc spaces are preserved. No acute compression fracture is identified. No prevertebral soft tissue swelling is seen. Procedure Note Chaitanya Rowe MD - 06/18/2017 EXAMINATION: XR SPINE CERVICAL 2 VIEWS HISTORY: Neck pain COMPARISON: No prior study is available for comparison at the time ofthis dictation. FINDINGS: The alignment is maintained. The vertebral body heights and intervertebraldisc spaces are preserved. No acute compression fracture is identified. Noprevertebral soft tissue swelling is seen. IMPRESSION IMPRESSION: No acute compression fracture or subluxation of the cervical spine. Report dictated by Luis Armando Maldonado MD (residential solar sales consultant). I, Dr. CHAITANYA ROWE MD have personally reviewed and interpreted thisexamination/study. This report was electronically signed by CHAITANYA ROWE MD on 01/26/201710:27 AM . Lorin Santos PA-C DIAGNOSTIC IMAG ING ORDERABLES
--- OUTSIDE RECORDS SUMMARY | 2024-04-13 14:17 | XMS_ITS | Referral Summary ---
Author Organization [facility] Address [address] [place] [address] Care Team Providers Care Protective Officer Name Role Phone JaydenLorin Rachel HENDRIX Primary Care Provider [phone] Allergies No known active allergies Medications HYDROcodone-acet aminophen (NORCO) 5-325 mg per tabletIndication s:Pain Take 1 tablet by mouth every 6 (six) hours as needed for pain for up to 10 doses 10 tablet 02/02/2023 Active Immunizations Name Administration Dates Next Due Tdap 10/27/2015 Social History Tobacco Use Types Packs/Day Years Used Date Smoking Tobacco: Never Assessed Personal Safety Answer Date Recorded Have you ever been in or are you currently in a harmful physical or emotional relationship or is someone making you feel afraid or unsafe? Denies 02/02/2023 Comments Unknown Sex and Gender Information Value Date Recorded Sex Assigned at Not on file Legal Sex Female 7:43 PM PRODUCT SAFETY LEAD Gender Identity Not on file Sexual Orientation Not on file Last Filed Vital Signs Vital Sign Reading Time Taken Comments Blood Pressure 127/74 02/02/2023 1:24 PM PRODUCT SAFETY LEAD Pulse 81 02/02/2023 1:24 PM PRODUCT SAFETY LEAD Temperature 37.5 ??C (99.5 ??F) 02/02/2023 1:24 PM CS T Respiratory Rate 18 02/02/2023 1:24 PM PRODUCT SAFETY LEAD Oxygen Saturation 100% 02/02/2023 1:24 PM PRODUCT SAFETY LEAD Inhaled Oxygen Concentration - - Weight 73.9 kg (163 lb) 02/02/2023 1:24 PM PRODUCT SAFETY LEAD Height - - Body Mass Index - - Plan of Treatment Not on file Insurance [facility] Care Teams Protective Officer Relationship Specialty Start Date End Date Lorin Carpenter NP [address] [place] [address] PCP - General Nurse Practitioner 02/02/23
--- OUTSIDE RECORDS SUMMARY | 2024-04-13 14:17 | XMS_ITS ---
Author Organization [facility] Address [address] [place] [address] Phone Care Team Providers Care Practice Office Associate Name Role Phone Unavailable Unavailable Unavailable Problems Includes: Active, inactive, and resolved Problems All Visits Onset Date Resolved Date Provider Condition S tatus Depression 11/20/2015 ULISES KIDD MD Active Last Documented On 11/20/2015 1:24PM ; [facility] Note: Unchanged Gestational edema, third trimester 08/27/2015 ULISES KIDD MD Active Last Documented On 08/27/2015 3:49PM ; [facility] Note: Unchanged Maternal care for excess growth, third tri, fetus 1 08/27/2015 ULISES KIDD MD Active Last Documented On 08/27/2015 3:49PM ; [facility] Note: Unchanged Encounter for suprvsn of normal , third trimester 08/27/2015 ULISES KIDD MD Active Last Documented On 08/27/2015 3:49PM ; [facility] Note: Unchanged Alcohol Use 04/09/2015 Unknown ULISES KIDD MD Resolved Last Documented On 05/27/2018 11:02AM ; [facility] Note: was Closed. Exposure To Contagious Viral Disease 04/09/2015 Unknown ULISES KIDD MD Resolved Last Documented On 05/27/2018 11:02AM ; [facility] Note: was Closed. History of Abnormal Pap Smear 04/09/2015 Unknown ULISES KIDD MD Resolved Last Documented On 05/27/2018 11:02AM ; [facility] Note: was Closed. History of Depression 04/09/2015 Unknown ULISES KIDD MD Resolved Last Documented On 05/27/2018 11:02AM ; [facility] Note: was Closed. Tobacco Use 04/09/2015 Unknown ULISES KIDD MD Resolved Last Documented On 05/27/2018 11:02AM ; [facility] Note: was Closed. Possible Varicella Susceptibility (No Prior History) 04/09/2015 Unknown RUDY COOPER RN NP Resolved Last Documented On 6 2:17PM ; [facility] Reported Previous Std 04/09/2015 Unknown ULISES KIDD MD Resolved Last Documented On 05/27/2018 11:02AM ; [facility] Note: was Closed. 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 OSEAS COOPER RN [facility] Active Last Documented On 3 1:54PM ; [facility] History of Cervical Dysplasia 12/27/2012 RUDY COOPER RN N P BC Active Last Documented On 12/27/2012 2:21PM ; [facility] Note: Unchanged History of Urinary Tract Infection 12/27/2012 RUDY COOPER RN N P BC Active Last Documented On 12/27/2012 2:21PM ; [facility] Note: Unchanged Smoking Cigarettes 12/27/2012 RUDY GARCIA RN [facility] Active Last Documented On 12/27/2012 2:21PM ; [facility] Note: Unchanged - 1 PACK A DAY FOR TEN Y EARS Plan of Treatment Findings Encounter Date Ordered Clinical summary pro vided to patient 1 WK CK-UP with RUDY COOPER RN [facility] 12/12/2015 Last Documented On 6 2:17PM ; [facility] Ordered Clinical summary pro vided to patient PROBLEM VISIT with RUDY COOPER RN [facility] 11/27/2015 Last Documented On 6 3:00PM ; [facility] Ordered Clinical summary pro vided to patient RECREATIONAL RESORT MANAGER EXAM with RUDY COOPER RN SIMEON 10/12/2014 Last Documented On 5 11:32AM ; [facility] She will let us know if she has any other problems and present back in one year for [employer] NEW RECREATIONAL RESORT MANAGER EXAM with ULISES KIDD MD 02/16/2011 Last Documented On 1 10:49PM ; [facility] Referrals To Diagnosis Dermatology JASON PATEL MD Acne, uns pecified Last Documented On 7 9:47AM ; [facility] Instructions to patient Instructions for patient : B reast Self Exam discussed and technique reviewed Last Documented On 8 1:43PM ; [facility] Instructions for patient : B reast Self Exam discussed and technique reviewed Last Documented On 5 11:09AM ; [facility] Use a condom during sexual i ntercourse Last Documented On 5 11:09AM ; [facility] Instructed to call if excess uche bleeding or abdominal/pelvic pain Last Documented On 5 11:09AM ; [facility] Recommend diet and exercise at least 30 min three times per week Last Documented On 5 11:09AM ; [facility] Instructions for patient : B reast Self Exam discussed and technique reviewed Last Documented On 3 2:14PM ; [facility] Use a condom during sexual i ntercourse Last Documented On 3 2:14PM ; [facility] Instructed to call if excess uche bleeding or abdominal/pelvic pain Last Documented On 3 2:14PM ; [facility] Recommend diet and exercise at least 30 min three times per week Last Documented On 3 2:14PM ; [facility] Recommend CBC, TSH, fasting glucose, fasting lipid panel if patient aged 25 or older Last Documented On 3 2:14PM ; [facility] Recommend preventative vacci nation including but not limited to influenza/flu vaccine, DTP, Rubella, Hepatitis B vaccination series Last Documented On 3 2:14PM ; [facility] Instructions for patient : B reast Self Exam discussed and technique reviewed Last Documented On 1 10:37PM ; [facility] Education and Decision Aids were provided during visit for: Discussed smoking and drug u se Last Documented On 5 11:09AM ; [facility] Patient education RE: randall rossi signals associated with hormonal contraceptive use including abdominal, chest, or leg pain, headaches or visual disturbances Last Documented On 5 11:09AM ; [facility] Patient Education: Daily junior cium and vitamin D Last Documented On 5 11:09AM ; [facility] control consent review ed and signed Last Documented On 5 11:09AM ; [facility] Discussed use of seat belts Last Documented On 3 2:14PM ; [facility] Discussed smoking and drug u se Last Documented On 3 2:14PM ; [facility] Discussed risk-taking behavi or Last Documented On 3 2:14PM ; [facility] Patient education RE: randall rossi signals associated with hormonal contraceptive use including abdominal, chest, or leg pain, headaches or visual disturbances Last Documented On 3 2:14PM ; [facility] Patient Education: Daily junior cium and vitamin D Last Documented On 3 2:14PM ; [facility] Pt initially wanted the IUD removed as she was sure it was the source of all her problems. We were able to convince her that an u/s to determine that the IUD was in proper location and not the soruce of her problem would be better and not waste a perfectly good IUD. She expressed understanding and agreed Last Documented On 2 5:36PM ; [facility] Assessments Includes: Assessments for all patient encounters Findings Encounter Date Fibrocystic disease of breast RECREATIONAL RESORT MANAGER EXAM with ULISES KIDD MD 04/05/2017 Last Documented On 8 2:06PM ; [facility] NORMAL FEMALE EXAM RECREATIONAL RESORT MANAGER EXAM with ULISES KIDD MD 04/05/2017 Last Documented On 8 2:06PM ; [facility] POST OP VISIT POST OP VISIT with ULISES Donaldson MD 03/02/2016 Last Documented On 6 4:49PM ; [facility] depression POST OP VISIT with ULISES AKINS MD 03/02/2016 Last Documented On 6 4:49PM ; [facility] POST OP VISIT 2 WK CK-UP with ULISES Harley 02/10/2016 Last Documented On 6 4:24PM ; [facility] Methicillin resistant staphy lococcus aureus infection day 2 Bactrim POST OP VISIT with RUDY COOPER RN [facility] 12/05/2015 Last Documented On 6 3:30PM ; [facility] depression well c ontrolled w/current rx POST OP VISIT with RUDY COOPER RN [facility] 12/05/2015 Last Documented On 6 3:30PM ; [facility] Routine history and physical POST OP VISIT with RUDY COOPER RN [facility] 12/05/2015 Last Documented On 6 3:30PM ; [facility] Infections of skin and subcu taneous tissue PROBLEM VISIT with RUDY COOPER RN [facility] 11/27/2015 Last Documented On 6 3:00PM ; [facility] depression resolv ing per pt report w/Sertraline use PROBLEM VISIT with RUDY COOPER RN [facility] 11/27/2015 Last Documented On 6 3:00PM ; [facility] depression PROBLEM VISIT with ULISES AKINS MD 11/20/2015 Last Documented On 6 1:24PM ; [facility] POST OP VISIT POST OP VISIT with ULISES Donaldson MD 11/08/2015 Last Documented On 6 11:52AM ; [facility] Contraceptive management RECREATIONAL RESORT MANAGER EXAM with RUDY GARCIA RN [facility] 10/12/2014 Last Documented On 5 11:32AM ; [facility] Risk: tobacco use RECREATIONAL RESORT MANAGER EXAM with RUDY COOPER RN [facility] 10/12/2014 Last Documented On 5 11:32AM ; [facility] Routine gynecological exam RECREATIONAL RESORT MANAGER EXAM with RUDY COOPER RN [facility] 10/12/2014 Last Documented On 5 11:32AM ; [facility] Contraceptive surveillance IUD INSITU AN NUAL AUTHORIZATION MANAGER EXAM with RUDY COOPER RN [facility] 12/27/2012 Last Documented On 3 2:22PM ; [facility] Risk: tobacco use ANNUAL AUTHORIZATION MANAGER EXAM with RUDY GARCIA RN [facility] 12/27/2012 Last Documented On 3 2:22PM ; [facility] Routine gynecological exam ANNUAL AUTHORIZATION MANAGER EXAM with RUDY COOPER RN [facility] 12/27/2012 Last Documented On 3 2:22PM ; [facility] Dyspareunia -- resolved 2 WK CK-UP with ULISES MARTE MD 06/18/2011 Last Documented On 2 4:42PM ; [facility] Checking intrauterine device (IUD) PROBLEM VISIT with ULISES KIDD MD 06/04/2011 Last Documented On 2 5:37PM ; [facility] Dyspareunia PROBLEM VISIT with ULISES Donaldson MD 06/04/2011 Last Documented On 2 5:37PM ; [facility] Vaginal candidiasis PROBLEM VISIT with ULISES PALMER MD 06/04/2011 Last Documented On 2 5:37PM ; [facility] Breast fibrocystic disease NEW RECREATIONAL RESORT MANAGER EXAM with ULISES KIDD MD 02/16/2011 Last Documented On 1 10:49PM ; [facility] Checking intrauterine device (IUD) NEW RECREATIONAL RESORT MANAGER EXAM with ULISES KIDD MD 02/16/2011 Last Documented On 1 10:49PM ; [facility] NORMAL FEMALE EXAM NEW RECREATIONAL RESORT MANAGER EXAM with ULISES JIMENEZ MD 02/16/2011 Last Documented On 1 10:49PM ; [facility] Instructions Includes: Instructions for all patient encounters Instructions to patient Instructions for patient : B reast Self Exam discussed and technique reviewed Last Documented On 8 1:43PM ; [facility] Instructions for patient : B reast Self Exam discussed and technique reviewed Last Documented On 5 11:09AM ; [facility] Use a condom during sexual i ntercourse Last Documented On 5 11:09AM ; [facility] Instructed to call if excess uche bleeding or abdominal/pelvic pain Last Documented On 5 11:09AM ; [facility] Recommend diet and exercise at least 30 min three times per week Last Documented On 5 11:09AM ; [facility] Instructions for patient : B reast Self Exam discussed and technique reviewed Last Documented On 3 2:14PM ; [facility] Use a condom during sexual i ntercourse Last Documented On 3 2:14PM ; [facility] Instructed to call if excess uche bleeding or abdominal/pelvic pain Last Documented On 3 2:14PM ; [facility] Recommend diet and exercise at least 30 min three times per week Last Documented On 3 2:14PM ; [facility] Recommend CBC, TSH, fasting glucose, fasting lipid panel if patient aged 25 or older Last Documented On 3 2:14PM ; [facility] Recommend preventative vacci nation including but not limited to influenza/flu vaccine, DTP, Rubella, Hepatitis B vaccination series Last Documented On 3 2:14PM ; [facility] Instructions for patient : B reast Self Exam discussed and technique reviewed Last Documented On 1 10:37PM ; [facility] Education and Decision Aids were provided during visit for: Discussed smoking and drug u se Last Documented On 5 11:09AM ; [facility] Patient education RE: susanjeremiah flo signals associated with hormonal contraceptive use including abdominal, chest, or leg pain, headaches or visual disturbances Last Documented On 5 11:09AM ; [facility] Patient Education: Daily junior cium and vitamin D Last Documented On 5 11:09AM ; [facility] control consent review ed and signed Last Documented On 5 11:09AM ; [facility] Discussed use of seat belts Last Documented On 3 2:14PM ; [facility] Discussed smoking and drug u se Last Documented On 3 2:14PM ; [facility] Discussed risk-taking behavi or Last Documented On 3 2:14PM ; [facility] Patient education RE: dorisrubén g signals associated with hormonal contraceptive use including abdominal, chest, or leg pain, headaches or visual disturbances Last Documented On 3 2:14PM ; [facility] Patient Education: Daily junior cium and vitamin D Last Documented On 3 2:14PM ; [facility] Pt initially wanted the IUD removed as she was sure it was the source of all her problems. We were able to convince her that an u/s to determine that the IUD was in proper location and not the soruce of her problem would be better and not waste a perfectly good IUD. She expressed understanding and agreed Last Documented On 2 5:36PM ; [facility] Medical Equipment - Implanted Devices Includes: Current and historical Devices No Medical Equipment Recorded Medications Includes: Current and historical Medications Current Medications (continue as prescribed) Acyclovir 400MG Oral Tablet 04/05/2017 Provider: ULISES KIDD MD Diagnosis: Si tabs 2 x per day x 5 days prn outbreaks. Last Documented On 04/05/2017 2:06PM By ULISES KIDD MD ; [facility] TiZANidine HCl 4MG Oral Tablet 04/05/2017 Provider: Diagnosis: Last Documented On 8 1:25PM By ASH MORALES Eyal ; [facility] Diclofenac Sodium 75MG Oral Tablet, enteric coated Provider: Diagnosis: Last Documented On 8 1:25PM By ASH YOO ; [facility] Stool Softener 100MG Oral Capsule, conventional 2017 Provider: Diagnosis: Last Documented On 8 1:27PM By ASH MORALES Eyal ; [facility] Tylenol with Codeine #4 300-60MG Oral Tablet 8 Provider: Diagnosis: Last Documented On 8 1:28PM By ASH MORALES Eyal ; [facility] Sertraline HCl 50 MG Tablet 03/02/2016 Provider: ULISES KIDD MD Diagnosis: Mental and behav rl disorders assoc with the puerperium, NEC One tablet daily Last Documented On 03/02/2016 4:47PM By ULISES KIDD MD ; [facility] Formula 27-1 MG Tablet 04/09/2015 Provider: ULISES KIDD MD Diagnosis: Encounter for roberts prvsn of normal , first trimester One tablet daily generic pnv with 1 mg folic acid, may substitute as needed to fill Last Documented On 04/09/2015 10:20AM By ULISES KIDD MD ; [facility] Past Medications on file Bactrim DS 800-160MG Oral Tablet 01/11/2017 - 04/05/19 18 Provider: Diagnosis: Last Documented On 8 1:25PM By ASH YOO ; [facility] Premium Condoms Lubricated Miscellaneous 12/12/2015 - 01/11/2016 Provider: RUDY CLARK Diagnosis: Encounter for in itial prescription of other contraceptives as directed USE DIRECTED Last Documented On 6 1:53PM By RUDY WATERS ; [facility] Sertraline HCl 50 MG Tablet 12/12/2015 - 03/02/2016 Provider: RUDY CLARK Diagnosis: Mental and behav rl disorders assoc with the puerperium, NEC One tablet daily Last Documented On 03/02/2016 4:46PM By ULISES KIDD MD ; [facility] Sertraline HCl 50 MG Tablet 12/05/2015 - 12/12/2015 Provider: RUDY CLARK Diagnosis: Mental and behav rl disorders assoc with the puerperium, NEC One tablet daily Last Documented On 6 1:55PM By RUDY WATERS ; [facility] Sulfamethoxazole-Trimethopri m 800-160 MG Tablet 12/03/2015 - 12/13/2015 Provider: RUDY CLARK Diagnosis: Local infection of the skin and subcutaneous tissue, unsp One tablet twice a day ONE TAB 2 TIMES A DAY WIT H FOOD Last Documented On 6 9:26AM By RUDY WATERS ; [facility] Ibuprofen 600 MG Tablet 11/27/2015 - 12/02/2015 Provider: RUDY CLARK Diagnosis: Local infection of the skin and subcutaneous tissue, unsp 1 every 4 - 6 hours as neede d atke as directed w/food Last Documented On 6 2:51PM By RUDY WATERS ; [facility] Fluconazole 150 MG Tablet 11/27/2015 - 11/29/2015 Provider: RUDY CLARK Diagnosis: Local infection of the skin and subcutaneous tissue, unsp 1 daily Pt. is to take 1 day 4 of antibiotics and 1 tablet day 7 Last Documented On 6 2:51PM By RUDY WATERS ; [facility] Cephalexin 500 MG Capsule, conventional 11/27/2015 - 12/04/2015 Provider: RUDY CLARK Diagnosis: Local infection of the skin and subcutaneous tissue, unsp One tablet four times a day TAKE DIRECTED W/FOOD Last Documented On 6 2:51PM By RUDY WATERS ; [facility] Sertraline HCl 50 MG Tablet 11/20/2015 - 12/05/2015 Provider: ULISES Harley Diagnosis: Mental and behav rl disorders assoc with the puerperium, NEC One tablet daily Last Documented On 6 2:09PM By RUDY WATERS ; [facility] Acyclovir 400 MG Tablet 09/10/2015 - 04/05/2017 Provider: ULISES Harley Diagnosis: Encounter for roberts prvsn of normal , third trimester One tablet twice a day Last Documented On 04/05/2017 2:05PM By ULISES KIDD MD ; [facility] NuvaRing 0.12-0.015 MG/24HR Ring 01/07/2015 - 01/28/2015 Provider: RUDY IRIZARRY Diagnosis: Encounter for ot h general cnsl and advice on contraception as directed INSERT 1 RING IN TO VAGINA FIRST WEDNESDAY NEXT MENSES X 3 WEEKS REMOVE X 1 WEEK THEN REPLACE WITH NEW Last Documented On 5 1:08PM By RUDY WATERS ; [facility] NuvaRing 0.12-0.015 MG/24HR Ring 01/07/2015 - 01/04/2015 Provider: RUDY IRIZARRY Diagnosis: Encounter for ot h general cnsl and advice on contraception as directed INSERT 1 RING IN TO VAGINA FIRST WEDNESDAY NEXT MENSES X 3 WEEKS REMOVE X 1 WEEK THEN REPLACE WITH NEW Last Documented On 5 11:05AM By RUDY WATERS ; [facility] Nitrofurantoin Macrocrystal 100 MG Capsule 10/23/2014 - 11/20/2015 Provider: RUDY IRIZARRY BC Diagnosis: URIN TRACT INFEC TION NOS One tablet twice a day USE DIRECTED W/FOOD Last Documented On 6 1:03PM By SHANDA GARCIA LPN ; [facility] NuvaRing 0.12-0.015 MG/24HR Ring 10/12/2014 - 01/04/2015 Provider: RUDY IRIZARRY BC Diagnosis: OTHER FAMILY CAPRICE NNING ADVICE NEC as directed INSERT 1 RING IN TO VAGINA FIRST WEDNESDAY NEXT MENSES X 3 WEEKS REMOVE X 1 WEEK THEN REPLACE WITH NEW Last Documented On 5 10:22AM By RUDY WATERS ; [facility] Diflucan 150 MG OR TABS 06/04/2011 - 11/20/2015 Provid er: ULISES KIDD MD Diagnosis: one tablet po, prn yeast infection Last Documented On 6 1:04PM By SHANDA GARCIA LPN ; [facility] Imitrex 25 MG OR TABS 02/16/2011 - 10/12/2014 Provider : Diagnosis: Last Documented On 5 11:31AM By RUDY WATERS ; [facility] Naproxen 500 MG OR TABS 02/16/2011 - 04/05/2017 Provid er: Diagnosis: Last Documented On 8 1:25PM By ASH YOO ; [facility] Mirena (52 MG) 20 MCG/24HR IU IUD 02/16/2011 - 015 Provider: Diagnosis: IMPLANTED Last Documented On 5 11:31AM By RUDY WATERS ; [facility] Medications Administered Includes: Administered Medications in patient's chart No Administered Medications Recorded Results Includes: Results from 04/13/2023 through 04/13/2024 No Results Recorded For Specified Dates History of Present Illness History of Present Illness not supported for this document type No History of Present Illness Recorded Social History Description Last Updated Cigarette smoking 1 pack(s)/day 1 PACK A DAY FOR 15 YEARS 04/05/2017 Last Documented On 8 2:06PM ; [facility] The first insertion of an IUD was: was o n 10/16/2009: removed 10/12/2014; 04/05/2017 Last Documented On 8 2:06PM ; [facility] Alcohol use once a month sometimes 04/05 Last Documented On 8 2:06PM ; [facility] Marital history Engaged lives with fianc e for years 04/05/2017 Last Documented On 8 2:06PM ; [facility] Not using drugs 04/05/2017 Last Documented On 8 2:06PM ; [facility] Sexually active with 1 partners in the l ast year 02/10/2016 Last Documented On 6 4:24PM ; [facility] Education history 12/12/2015 Last Documented On 6 2:17PM ; [facility] Not exercising regularly 12/12/2015 Last Documented On 6 2:17PM ; [facility] Personal history 12/12/2015 Last Documented On 6 2:17PM ; [facility] Sexually active 12/12/2015 Last Documented On 6 2:17PM ; [facility] Sexually active 5 weeks sperm acide 12/12/2015 Last Documented On 6 2:17PM ; [facility] Single 12/12/2015 Last Documented On 6 2:17PM ; [facility] Smoking status : Current everyday smoker 12/12/2015 Last Documented On 6 2:17PM ; [facility] Social history unchanged 12/12/2015 Last Documented On 6 2:17PM ; [facility] Tobacco use 04/09/2015 Last Documented On 6 10:41AM ; [facility] Procedures and Surgical History Surgical History Last Updated Previous colposcopy she thinks years ago with TCK 04/05/2017 Last Documented On 8 2:06PM ; [facility] History of tubal ligation 04/05/2017 Last Documented On 8 2:06PM ; [facility] Surgical history unchanged 10/12/2014 Last Documented On 5 11:32AM ; [facility] Dilation + Curettage 02/16/2011 Last Documented On 1 10:49PM ; [facility] History of appendectomy 02/16/2011 Last Documented On 1 10:49PM ; [facility] History of Loop electrode excision of ce rvix (LEEP) 06-20-08 02/16/2011 Last Documented On 1 10:49PM ; [facility] Medical History Includes: Medical History in patient's chart Description Last Updated A recent methicillin-resista nt Staphylococcus aureus infection : post section in 2016; 04/05/2017 Last Documented On 8 2:06PM ; [facility] section 10/25/2015 Emergency c/s TCK 04/05/2017 Last Documented On 8 2:06PM ; [facility] 6 04/05/2017 Last Documented On 8 2:06PM ; [facility] Para 2 04/05/2017 Last Documented On 8 2:06PM ; [facility] LMP: 03/18/2017 04/05/2017 Last Documented On 8 2:06PM ; [facility] Last pap smear date 03/02/2016 8 Last Documented On 8 2:06PM ; [facility] PRIMARY CARE PROVIDER : jada jacinto NP 03/02/2016 Last Documented On 6 4:49PM ; [facility] Status post tubal ligation 02/10/2016 Last Documented On 6 4:24PM ; [facility] Not using contraception has signed BTL 0 12/12/2015 Last Documented On 6 2:17PM ; [facility] Sexually active 12/12/2015 Last Documented On 6 2:17PM ; [facility] Infant is bottle-feeding 11/27/2015 Last Documented On 6 3:00PM ; [facility] History of Pap smear done 10/12/2014 090 09/2015 Last Documented On 6 3:00PM ; [facility] History of Abnormal Pap Smear 04/09/2015 Last Documented On 6 10:21AM ; [facility] History of depression 04/09/2015 Last Documented On 6 10:21AM ; [facility] No recent change in medical history 09/20 Last Documented On 5 11:32AM ; [facility] No exposure to venereal disease per pt 0 06/18/2011 Last Documented On 2 5:37PM ; [facility] Result: normal GC/CT CULTURES NEGATIVE 0 06/18/2011 Last Documented On 2 4:42PM ; [facility] Vaginal delivery once 02/16/2011 Last Documented On 1 10:49PM ; [facility] History of cervical dysplasia 02/16/2011 Last Documented On 1 10:49PM ; [facility] History of urinary tract infection 02/16 Last Documented On 1 10:49PM ; [facility] Aborta 4 02/16/2011 Last Documented On 1 10:49PM ; [facility] Family History Includes: Family History in patient's chart Description Last Updated First child named 10/12/2006 vaginal TCK 04/05/2017 Last Documented On 8 2:06PM ; [facility] Second child named 10/25/15 TCK emergency c/s 04/05/2017 Last Documented On 8 2:06PM ; [facility] mom with skin cancer 04/05/2017 Last Documented On 8 2:06PM ; [facility] Family history of diabetes mellitus FAMI LY HX OF 10/12/2014 Last Documented On 5 11:32AM ; [facility] Family history of heart disease FAMILY H X OF 10/12/2014 Last Documented On 5 11:32AM ; [facility] Family history of hypercholesterolemia F AMILY HX OF 10/12/2014 Last Documented On 5 11:32AM ; [facility] Family history of hypertension FAMILY HX OF 10/12/2014 Last Documented On 5 11:32AM ; [facility] Family history of malignant neoplasm of the large intestine paternal GRANDFATHER 10/12/2014 Last Documented On 5 11:32AM ; [facility] No family history of malignant female br east neoplasm 10/12/2014 Last Documented On 5 11:32AM ; [facility] No family history of malignant neoplasm of the ovary 10/12/2014 Last Documented On 5 11:32AM ; [facility] No family history of uterine cancer 09/20 Last Documented On 5 11:32AM ; [facility] Family history unchanged 10/12/2014 Last Documented On 5 11:32AM ; [facility] Review of Systems Review of Systems not supported for this document type No Review of Systems Recorded Mental Status Description Oriented to time, place, and person No anxiety Functional Status No Functional Status Recorded Physical Exam Physical Exam not supported for this document type No Physical Exam Recorded Allergies Includes: Active, inactive, and resolved Allergies Substance Type Reaction Onset Date Resolved Date Statu s Codeine Allergy Nausea, Vomiting , Diarrhea / Diarrheal disorder, Shock, Unconsciousness 02/16/2011 Resolved Last Documented On 04/09/2015 9:39AM ; [facility] Note: THROW-UP AND PASS OUT Clinical Notes Includes: Signed Clinical Notes starting from 04/10/2022 No Clinical Notes Recorded
--- OUTSIDE RECORDS SUMMARY | 2024-04-13 14:17 | XMS_ITS | Clinical Summary ---
Author Organization [facility] Address [address] [place] [address] Care Team Providers Care Research Analyst Name Role Phone Lorin Carpenter NP Primary Care Provider Allergies No known active allergies Medications HYDROcodone-acet [...] on file Legal Sex Female 7:43 PM ER REGISTRAR Gender Identity Not on file Sexual Orientation Not on file Last Filed Vital Signs Vital Sign Reading Time Taken Comments Blood Pressure 127/74 02/02/2023 1:24 PM ER REGISTRAR Pulse 81 02/02/2023 1:24 PM ER REGISTRAR Temperature 37.5 ??C (99.5 ??F) 02/02/2023 1:24 PM CS T Respiratory Rate 18 02/02/2023 1:24 PM ER REGISTRAR Oxygen Saturation 100% 02/02/2023 1:24 PM ER REGISTRAR Inhaled Oxygen Concentration - - Weight 73.9 kg (163 lb) 02/02/2023 1:24 PM ER REGISTRAR Height - - Body Mass Index - - Plan of Treatment Health Maintenance Due Date Last Done Comments Cervical Cancer Screening 1987 Depression Screening 1987 Hepatitis C Screening 1987 Varicella Vaccines (1 of 2 - 13+ 2-dose series) 2000 Hepatitis B Screening 2005 Regular Well Visit/Exam 18-64 2005 Influenza Vaccine (#1) 2023 0, 03/08/2019, 02/18/2016 DTaP/Tdap/Td Vaccine (6 - Td or Tdap) 10/26/2025 10/27/2015, 09/29/1989, 11/30/1988, Additional history exists HPV Vaccines Aged Out No longer eligi ble based on patient's age to complete this topic Pneumococcal vaccine <65 Aged Out No longer eligible based on patient's age to complete this topic Insurance [facility] Care Teams Research Analyst Relationship Specialty Start Date End Date Lorin Carpenter NP [address] [place] [address] [place] [phone] (work) PCP - General Nurse Practitioner 02/02/23
--- OUTSIDE RECORDS SUMMARY | 2024-04-13 14:17 | XMS_ITS | Clinical Summary ---
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 Problems Includes: Problems addressed during this encounter and other active Problems All Visits Onset Date Resolved Date Provider Condition S tatus Depression 11/20/2015 ULISES KIDD MD Active Last Documented On 11/20/2015 1:24PM ; [facility] Note: Unchanged Gestational edema, third trimester 08/27/2015 ULISES KIDD MD Active Last Documented On 08/27/2015 3:49PM ; [facility] Note: Unchanged Maternal care for excess growth, third tri, fetus 1 08/27/2015 ULISES KIDD MD Active Last Documented On 08/27/2015 3:49PM ; [facility] Note: Unchanged Encounter for suprvsn of normal , third trimester 08/27/2015 ULISES KIDD MD Active Last Documented On 08/27/2015 3:49PM ; [facility] Note: Unchanged 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 RUDY COOPER RN SIMEON BC Active Last Documented On 3 1:54PM ; [facility] History of Cervical Dysplasia 12/27/2012 RUDY COOPER RN Cristy P BC Active Last Documented On 12/27/2012 2:21PM ; [facility] Note: Unchanged History of Urinary Tract Infection 12/27/2012 RUDY COOPER RN Cristy P BC Active Last Documented On 12/27/2012 2:21PM ; [facility] Note: Unchanged Smoking Cigarettes 12/27/2012 [...] 04/05/2017 2:06PM By ULISES KIDD MD ; [facility] TiZANidine HCl 4MG Oral Tablet 04/05/2017 Provider: Diagnosis: Last Documented On 8 1:25PM By ASH MORALES Eyal ; [facility] Diclofenac Sodium 75MG Oral Tablet, enteric coated Provider: Diagnosis: Last Documented On 8 1:25PM By ASH MORALES Eyal ; [facility] Stool Softener 100MG Oral Capsule, conventional 2017 Provider: Diagnosis: Last Documented On 8 1:27PM By ASH MORALES Eyal ; [facility] Tylenol with Codeine #4 300-60MG Oral Tablet 8 Provider: Diagnosis: Last Documented On 8 1:28PM By ASH MORALES Eyal ; [facility] Sertraline HCl 50 MG Tablet 03/02/2016 Provider: ULISES KIDD MD Diagnosis: Mental and behav rl disorders assoc with the puerperium, NEC One tablet daily Last Documented On 03/02/2016 4:47PM By ULISES KIDD MD ; [facility] Formula 27-1 MG Tablet 04/09/2015 Provider: ULISES KIDD MD Diagnosis: Encounter for roberts prvsn of normal , first trimester One tablet daily generic pnv with 1 mg folic acid, may substitute as needed to fill Last Documented On 04/09/2015 10:20AM By ULISES KIDD MD ; [facility] Medications Administered Includes: Administered Medications from this [...] Resolved Last Documented On 04/09/2015 9:39AM ; [facility] Note: THROW-UP AND PASS OUT Clinical Notes Includes: Clinical Notes from this encounter No Clinical Notes Recorded
--- OUTSIDE RECORDS SUMMARY | 2024-04-13 14:17 | XMS_ITS ---
Care Plan - [facility] Created on: April 13, 2024 GISSELL DOMINGO : 1985 Sex: Female Author Organization [facility] Address [address] [place] [address] Phone Care Team Providers Care Criminal Research Specialist Name Role Phone Unavailable Unavailable Unavailable
--- OUTSIDE RECORDS SUMMARY | 2024-04-13 14:17 | XMS_ITS | Clinical Summary ---
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 Problems Includes: Problems addressed during this encounter and other active Problems All Visits Onset Date Resolved Date Provider Condition S tatus Depression 11/20/2015 ULISES KIDD MD Active Last Documented On 11/20/2015 1:24PM ; [facility] Note: Unchanged Gestational edema, third trimester 08/27/2015 ULISES KIDD MD Active Last Documented On 08/27/2015 3:49PM ; [facility] Note: Unchanged Maternal care for excess growth, third tri, fetus 1 08/27/2015 ULISES KIDD MD Active Last Documented On 08/27/2015 3:49PM ; [facility] Note: Unchanged Encounter for suprvsn of normal , third trimester 08/27/2015 ULISES KIDD MD Active Last Documented On 08/27/2015 3:49PM ; [facility] Note: Unchanged 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 RUDY COOPER RN SIMEON BC Active Last Documented On 3 1:54PM ; [facility] History of Cervical Dysplasia 12/27/2012 RUDY COOPER RN Cristy P BC Active Last Documented On 12/27/2012 2:21PM ; [facility] Note: Unchanged History of Urinary Tract Infection 12/27/2012 RUDY COOPER RN Cristy P BC Active Last Documented On 12/27/2012 2:21PM ; [facility] Note: Unchanged Smoking Cigarettes [...] 2:06PM By ULISES KIDD MD ; [facility] TiZANidine HCl 4MG Oral Tablet 04/05/2017 Provider: Diagnosis: Last Documented On 8 1:25PM By ASH MORALES Eyal ; [facility] Diclofenac Sodium 75MG Oral Tablet, enteric coated Provider: Diagnosis: Last Documented On 8 1:25PM By ASH MORALES Eyal ; [facility] Stool Softener 100MG Oral Capsule, conventional 2017 Provider: Diagnosis: Last Documented On 8 1:27PM By ASH MORALES Eyal ; [facility] Tylenol with Codeine #4 300-60MG Oral Tablet 8 Provider: Diagnosis: Last Documented On 8 1:28PM By ASH MORALES Eyal ; [facility] Sertraline HCl 50 MG Tablet 03/02/2016 Provider: ULISES KIDD MD Diagnosis: Mental and behav rl disorders assoc with the puerperium, NEC One tablet daily Last Documented On 03/02/2016 4:47PM By ULISES KIDD MD ; [facility] Formula 27-1 MG Tablet 04/09/2015 Provider: ULISES KIDD MD Diagnosis: Encounter for roberts prvsn of normal , first trimester One tablet daily generic pnv with 1 mg folic acid, may substitute as needed to fill Last Documented On 04/09/2015 10:20AM By ULISES KIDD MD ; [facility] Medications Administered Includes: Administered Medications from this [...] Resolved Last Documented On 04/09/2015 9:39AM ; [facility] Note: THROW-UP AND PASS OUT Clinical Notes Includes: Clinical Notes from this encounter No Clinical Notes Recorded
--- OUTSIDE RECORDS SUMMARY | 2024-04-13 14:17 | XMS_ITS | Clinical Summary ---
Author Organization [facility] Address [address] [place] [address] Phone Care Team Providers Care Livestock Laborer Name Role Phone Jose Meadows MD Primary Care Provider [phone] Allergies No known active allergies Medications Vit-Fe Fumarate-FA ( VITAMIN PO) Take 1 Tab by mouth daily. Active valACYclovir (VALTREX) 1 GM Tablet Take 1,000 mg by mouth 2 times daily. Active valACYclovir (VALTREX) 1 GM TabletIndicatio ns:Systemic Viral Infection Take 400 mg by mouth 2 times daily. Indications: Systemic Viral Infection Active acetaminophen-c odeine (TYLENOL #4) 300-60 MG Tablet Take 1-2 Tabs by mouth every 6 hours as needed for Pain (back and neck pain). Active TiZANidine HCl 4 MG Capsule Take 4 mg by mouth 3 times daily. Active sertraline (ZOLOFT) 50 MG Tablet Take 50 mg by mouth daily. Active HYDROXYZINE HCL PO Take by mouth. Activ e DICLOFENAC SODIUM OP Place in affected eye(s). Active Fluticasone Propionate (FLONASE NA) by Nasal route. Active Active Problems Problem Noted Date Diagnosed Date Major depressive disorder, r ecurrent episode, moderate with anxious distress 12/17/2017 Family History Medical History Relation Name Comments Cancer Father Hypertension Father Diabetes Maternal Grandfather Heart Attack Maternal Grandfather Hypertension Maternal Grandfather Depression Maternal Grandmother Heart Disease Maternal Grandmother Hypertension Mother Relation Name Status Comments Father Maternal Grandfather Maternal Grandmother Mother Social History Tobacco Use Types Packs/Day Years Used Date Smoking Tobacco: Every Day Cigarettes 0.5 12 Smokeless Tobacco: Never Tobacco Cessation:Ready to Q uit: No; Counseling Given: No Alcohol Use Standard Drinks/Week Comments Yes 0 (1 standard drink = 0.6 oz pure alcohol) occasional social drinker, one beer or cocktail couple times per month Sexually Active Control Partners Comments Yes Surgical Male Comments Unknown Sex and Gender Information Value Date Recorded Sex Assigned at Not on file Legal Sex Female 9:24 PM CDT Gender Identity Not on file Sexual Orientation Not on file Last Filed Vital Signs Vital Sign Reading Time Taken Comments Blood Pressure 111/88 11/18/2023 10:39 AM CDT Pulse 80 11/18/2023 10:39 AM CDT Temperature 36.7 ??C (98 ??F) 11/18/2023 8:54 AM CDT Respiratory Rate 17 11/18/2023 10:39 AM CDT Oxygen Saturation 98% 11/18/2023 10:39 AM CDT Inhaled Oxygen Concentration - - Weight 68 kg (150 lb) 11/18/2023 8:57 AM CDT Height 167.6 cm (5' 6 ) 11/18/2023 8:57 AM CDT Body Mass Index 24.21 11/18/2023 8:57 AM CDT Plan of Treatment Health Maintenance Due Date Last Done Comments Hepatitis C Virus (HCV) Screening 1987 Hepatitis B Immunization (1 of 3 - 19+ 3-dose series) 2006 Pneumococcal Immunization Combined (1 of 2 - PCV) 2006 Pap Smear 2008 Cervical Cancer Screening (CCS) 2017 HPV/Cotest 2017 Influenza Immunization (#1) 2023 10/0 03/2019, 03/08/2019, 02/18/2016 SARS-COV-2 Immunization ( - 2023- season) 2023 Respiratory Syncytial Virus (RSV) Immunization (Adult) (1 - 1-dose 75+ series) 2062 DTaP/Tdap/Td Immunization Discontinued 10/27/2015 TdaP Immunization Completed 10/27/2015 Meningococcal Immunization (ACWY) Aged Out No longer eligible based on patient's age to complete this topic Rotavirus Immunization Aged Out No lo nger eligible based on patient's age to complete this topic Insurance MEDICAID [employer] Advance Directives * Full Code (Latest Code Status on File) Date Activated Date Inactivated Comments 09/26/2015 4:12 PM 09/26/2015 8:52 PM CPR-Full Treat ment: FULL ARREST: Attempt Resuscitation/CPR wit intubation and mechanical ventilation. PRE-ARREST: Use entire range of life support measures to stabilize the patient. * Full Code Date Activated Date Inactivated Comments 09/14/2015 3:56 PM 09/14/2015 7:22 PM CPR-Full Andrew atment: FULL ARREST: Attempt Resuscitation/CPR wit intubation and mechanical ventilation. PRE-ARREST: Use entire range of life support measures to stabilize the patient. Care Teams Livestock Laborer Relationship Specialty Start Date End Date Jose Meadows MD [address] [place] [address] PCP - General Internal Medicine 06/13/15
--- OUTSIDE RECORDS SUMMARY | 2024-04-13 14:17 | XMS_ITS | Clinical Summary ---
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 Problems Includes: Problems addressed during this encounter and other active Problems All Visits Onset Date Resolved Date Provider Condition S tatus Depression 11/20/2015 ULISES KIDD MD Active Last Documented On 11/20/2015 1:24PM ; [facility] Note: Unchanged Gestational edema, third trimester 08/27/2015 ULISES KIDD MD Active Last Documented On 08/27/2015 3:49PM ; [facility] Note: Unchanged Maternal care for excess growth, third tri, fetus 1 08/27/2015 ULISES KIDD MD Active Last Documented On 08/27/2015 3:49PM ; [facility] Note: Unchanged Encounter for suprvsn of normal , third trimester 08/27/2015 ULISES KIDD MD Active Last Documented On 08/27/2015 3:49PM ; [facility] Note: Unchanged 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 RUDY COOPER RN SIMEON BC Active Last Documented On 3 1:54PM ; [facility] History of Cervical Dysplasia 12/27/2012 RUDY COOPER RN Cristy P BC Active Last Documented On 12/27/2012 2:21PM ; [facility] Note: Unchanged History of Urinary Tract Infection 12/27/2012 RUDY COOPER RN Cristy P BC Active Last Documented On 12/27/2012 2:21PM ; [facility] Note: Unchanged Smoking Cigarettes [...] 04/05/2017 2:06PM By ULISES KIDD MD ; [facility] TiZANidine HCl 4MG Oral Tablet 04/05/2017 Provider: Diagnosis: Last Documented On 8 1:25PM By ASH MORALES Eyal ; [facility] Diclofenac Sodium 75MG Oral Tablet, enteric coated Provider: Diagnosis: Last Documented On 8 1:25PM By ASH MORALES Eyal ; [facility] Stool Softener 100MG Oral Capsule, conventional 2017 Provider: Diagnosis: Last Documented On 8 1:27PM By ASH MORALES Eyal ; [facility] Tylenol with Codeine #4 300-60MG Oral Tablet 8 Provider: Diagnosis: Last Documented On 8 1:28PM By ASH MORALES Eyal ; [facility] Sertraline HCl 50 MG Tablet 03/02/2016 Provider: ULISES KIDD MD Diagnosis: Mental and behav rl disorders assoc with the puerperium, NEC One tablet daily Last Documented On 03/02/2016 4:47PM By ULISES KIDD MD ; [facility] Formula 27-1 MG Tablet 04/09/2015 Provider: ULISES KIDD MD Diagnosis: Encounter for roberts prvsn of normal , first trimester One tablet daily generic pnv with 1 mg folic acid, may substitute as needed to fill Last Documented On 04/09/2015 10:20AM By ULISES KIDD MD ; [facility] Medications Administered Includes: Administered Medications from [...] Resolved Last Documented On 04/09/2015 9:39AM ; [facility] Note: THROW-UP AND PASS OUT Clinical Notes Includes: Clinical Notes from this encounter No Clinical Notes Recorded
--- OUTSIDE RECORDS SUMMARY | 2024-04-13 14:17 | XMS_ITS | Clinical Summary ---
Author Organization [facility] Address [address] [place] [address] [place] [address] Care Team Providers Care Raspberry Checker Name Role Phone Unavailable Primary Care Provider Unavailabl e Source Comments [facility],non-owned Affiliates and Associated Physician Practices is amultiple site organization consisting of ambulatory clinics and hospital sitesin [place], [place], [place] and [place]. This disclosure is being madepursuant to the Care Everywhere program and may not contain all information available regarding this patient. Last updated 17.[facility] Medications * Be aware that medications may not be up to date on this document. Alwaysverify current medications with the patient. Medication Sig Dispensed Refills Start Date End Date Status acyclovir (ZOVIRAX) 400 MG tablet 2 04/05/2017 Active tretinoin (RETIN-A) 0.05 % cream 45 g 11 04/29/2017 Active clindamycin (CLEOCIN) 1 % lotion 60 mL 11 04/29/2017 Active fluticasone propionate (FLONASE) 50 MCG/ACT nasal spray 01/06/2017 Active acetaminophen-codeine (TYLENOL #4) 300-60 MG tablet 01/12/2017 Active docusate sodium (COLACE) 100 MG capsule 01/06/2017 Active fluconazole (DIFLUCAN) 150 MG tablet 12/07/2016 Active tiZANidine (ZANAFLEX) 4 MG tablet 12/14/2016 Active sulfamethoxazole-trim ethoprim (BACTRIM DS; SEPTRA DS) 800-160 MG tablet 01/11/2017 Active hydrocortisone (HYTONE) 2.5 % cream 11/17/2016 Acti ve diclofenac sodium EC (VOLTAREN) 75 MG tablet 01/06/2017 Active spironolactone (ALDACTONE) 100 MG tablet Take one tablet by mouth daily. 30 day 30 tablet 2 08/05/2017 Active Family History Medical History Relation Name Comments CVA Neg Hx Cancer - Breast Neg Hx Cancer - Other Neg Hx Cancer - Skin, Melanoma Neg Hx Cancer - Skin, Non Melanoma Neg Hx Eczema Neg Hx Hemophilia Neg Hx Psoriasis Neg Hx Social History Tobacco Use Types Packs/Day Years [...] 78.5 kg (173 lb) 04/29/2017 12:56 PM LUMPIA WRAPPER MAKER Height 167.6 cm (5' 6 ) 04/29/2017 12:56 PM LUMPIA WRAPPER MAKER Body Mass Index 27.92 04/29/2017 12:56 PM LUMPIA WRAPPER MAKER Plan of Treatment Health Maintenance Due Date Last Done Comments PAP SMEAR 1985 HIV SCREENING 2002 HEPATITIS C SCREENING 03/17/2005 DTAP/TDAP/TD VACCINES (1 - Tdap) 2006 HEPATITIS B VACCINE (1 of 3 - 19+ 3-dose series) 2006 PNEUMOCOCCAL VACCINE (1 of 2 - PCV) 2006 COVID-19 VACCINE (1 - 2023-2 5 season) 2023 INFLUENZA VACCINE (#1) 2023 DEPRESSION SCREENING 2024 ZOSTER VACCINE (1 of 2) 2037 HIB VACCINE Aged Out No longer eligi ble based on patient's age to complete this topic HPV VACCINE Aged Out No longer eligi ble based on patient's age to complete this topic MENINGOCOCCAL (Group B) VACCINE Aged Out No longer eligible based on patient's age to complete this topic MENINGOCOCCAL VACCINE Aged Out No jonah nazanin eligible based on patient's age to complete this topic
--- OUTSIDE RECORDS SUMMARY | 2024-04-13 14:17 | XMS_ITS ---
Care Plan - [facility] Created on: April 13, 2024 GISSELL DOMINGO : 1985 Sex: Female Author Organization [facility] Address [address] [place] [address] Phone Care Team Providers Care Sponge Fisherman Name Role Phone Unavailable Unavailable Unavailable
--- OUTSIDE RECORDS SUMMARY | 2024-04-13 14:17 | XMS_ITS | Referral Summary ---
Author Organization [facility] [employer] Address [address] [place] [address] [place] [address] Care Team Providers Care Speaker Mounter Name Role Phone Unavailable Primary Care Provider Unavailabl e Source Comments [facility] [employer],non-owned Affiliates and Associated Physician Practices is amultiple site organization consisting of ambulatory clinics and hospital sitesin [place], [place], [place] and [place]. This disclosure is being madepursuant to the Care Everywhere program and may not contain all information available regarding this patient. Last updated 17.[facility] [employer] Medications * Be aware that medications may [...] 30 day 30 tablet 2 08/05/2017 Active Social History Tobacco Use Types Packs/Day Years [...] 78.5 kg (173 lb) 04/29/2017 12:56 PM EQUIPMENT SCHEDULER Height 167.6 cm (5' 6 ) 04/29/2017 12:56 PM EQUIPMENT SCHEDULER Body Mass Index 27.92 04/29/2017 12:56 PM EQUIPMENT SCHEDULER Plan of Treatment Not on file
--- OUTSIDE RECORDS SUMMARY | 2024-04-13 14:17 | XMS_ITS | Clinical Summary ---
Author Organization [facility] Address [address] [place] [address] Phone Care Team Providers Care Restaurant Lead Name Role Phone Unavailable Unavailable Unavailable Reason for Visit and Chief Complaint [employer] EXAM Problems Includes: Problems addressed during this encounter and other active Problems All Visits Onset Date Resolved Date Provider Condition S tatus Depression 11/20/2015 ULISES KIDD MD Active Last Documented On 11/20/2015 1:24PM ; [facility] Note: Unchanged Gestational edema, third trimester 08/27/2015 ULISES KIDD MD Active Last Documented On 08/27/2015 3:49PM ; [facility] Note: Unchanged Maternal care for excess growth, third tri, fetus 1 08/27/2015 ULISES KIDD MD Active Last Documented On 08/27/2015 3:49PM ; [facility] Note: Unchanged Encounter for suprvsn of normal , third trimester 08/27/2015 ULISES KIDD MD Active Last Documented On 08/27/2015 3:49PM ; [facility] Note: Unchanged 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 RUDY COOPER RN SIMEON BC Active Last Documented On 3 1:54PM ; [facility] History of Cervical Dysplasia 12/27/2012 RUDY COOPER RN Cristy P BC Active Last Documented On 12/27/2012 2:21PM ; [facility] Note: Unchanged History of Urinary Tract Infection 12/27/2012 RUDY COOPER RN Cristy P BC Active Last Documented On 12/27/2012 2:21PM ; [facility] Note: Unchanged Smoking Cigarettes [...] 04/05/2017 2:06PM By ULISES KIDD MD ; [facility] TiZANidine HCl 4MG Oral Tablet 04/05/2017 Provider: Diagnosis: Last Documented On 8 1:25PM By ASH MORALES Eyal ; [facility] Diclofenac Sodium 75MG Oral Tablet, enteric coated Provider: Diagnosis: Last Documented On 8 1:25PM By ASH MORALES Eyal ; [facility] Stool Softener 100MG Oral Capsule, conventional 2017 Provider: Diagnosis: Last Documented On 8 1:27PM By ASH MORALES Eyal ; [facility] Tylenol with Codeine #4 300-60MG Oral Tablet 8 Provider: Diagnosis: Last Documented On 8 1:28PM By ASH MORALES Eyal ; [facility] Sertraline HCl 50 MG Tablet 03/02/2016 Provider: ULISES KIDD MD Diagnosis: Mental and behav rl disorders assoc with the puerperium, NEC One tablet daily Last Documented On 03/02/2016 4:47PM By ULISES KIDD MD ; [facility] Formula 27-1 MG Tablet 04/09/2015 Provider: ULISES KIDD MD Diagnosis: Encounter for roberts prvsn of normal , first trimester One tablet daily generic pnv with 1 mg folic acid, may substitute as needed to fill Last Documented On 04/09/2015 10:20AM By ULISES KIDD MD ; [facility] Medications Administered Includes: Administered Medications from this [...] Resolved Last Documented On 04/09/2015 9:39AM ; [facility] Note: THROW-UP AND PASS OUT Clinical Notes Includes: Clinical Notes from this encounter No Clinical Notes Recorded
--- OUTSIDE RECORDS SUMMARY | 2024-04-13 14:17 | XMS_ITS ---
Author Organization [facility] Address [address] [place] [address] Phone Care Team Providers Care Mandrel Press Hand Name Role Phone Unavailable Unavailable Unavailable Problems Includes: Active, inactive, and resolved Problems All Visits Onset Date Resolved Date Provider Condition S tatus Depression 11/20/2015 ULISES KIDD MD Active Last Documented On 11/20/2015 1:24PM ; [facility] Note: Unchanged Gestational edema, third trimester 08/27/2015 ULISES KIDD MD Active Last Documented On 08/27/2015 3:49PM ; [facility] Note: Unchanged Maternal care for excess growth, third tri, fetus 1 08/27/2015 ULISES KIDD MD Active Last Documented On 08/27/2015 3:49PM ; [facility] Note: Unchanged Encounter for suprvsn of normal , third trimester 08/27/2015 ULISES KIDD MD Active Last Documented On 08/27/2015 3:49PM ; [facility] Note: Unchanged Alcohol Use 04/09/2015 Unknown ULISES KIDD MD Resolved Last Documented On 05/27/2018 11:02AM ; [facility] Note: was Closed. Exposure To Contagious Viral Disease 04/09/2015 Unknown ULISES KIDD MD Resolved Last Documented On 05/27/2018 11:02AM ; [facility] Note: was Closed. History of Abnormal Pap Smear 04/09/2015 Unknown ULISES KIDD MD Resolved Last Documented On 05/27/2018 11:02AM ; [facility] Note: was Closed. History of Depression 04/09/2015 Unknown ULISES KIDD MD Resolved Last Documented On 05/27/2018 11:02AM ; [facility] Note: was Closed. Tobacco Use 04/09/2015 Unknown ULISES KIDD MD Resolved Last Documented On 05/27/2018 11:02AM ; [facility] Note: was Closed. Possible Varicella Susceptibility (No Prior History) 04/09/2015 Unknown RUDY COOPER RN NP Resolved Last Documented On 6 2:17PM ; [facility] Reported Previous Std 04/09/2015 Unknown ULISES KIDD MD Resolved Last Documented On 05/27/2018 11:02AM ; [facility] Note: was Closed. 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 OSEAS COOPER RN [facility] Active Last Documented On 3 1:54PM ; [facility] History of Cervical Dysplasia 12/27/2012 RUDY COOPER RN N P BC Active Last Documented On 12/27/2012 2:21PM ; [facility] Note: Unchanged History of Urinary Tract Infection 12/27/2012 RUDY COOPER RN N P BC Active Last Documented On 12/27/2012 2:21PM ; [facility] Note: Unchanged Smoking Cigarettes 12/27/2012 RUDY GARCIA RN [facility] Active Last Documented On 12/27/2012 2:21PM ; [facility] Note: Unchanged - 1 PACK A DAY FOR TEN Y EARS Plan of Treatment Findings Encounter Date Ordered Clinical summary pro vided to patient 1 WK CK-UP with RUDY COOPER RN [facility] 12/12/2015 Last Documented On 6 2:17PM ; [facility] Ordered Clinical summary pro vided to patient PROBLEM VISIT with RUDY COOPER RN [facility] 11/27/2015 Last Documented On 6 3:00PM ; [facility] Ordered Clinical summary pro vided to patient GRADUATE RN EXAM with RUDY COOPER RN SIMEON 10/12/2014 Last Documented On 5 11:32AM ; [facility] She will let us know if she has any other problems and present back in one year for [employer] NEW GRADUATE RN EXAM with ULISES KIDD MD 02/16/2011 Last Documented On 1 10:49PM ; [facility] Referrals To Diagnosis Dermatology JASON PATEL MD Acne, uns pecified Last Documented On 7 9:47AM ; [facility] Instructions to patient Instructions for patient : B reast Self Exam discussed and technique reviewed Last Documented On 8 1:43PM ; [facility] Instructions for patient : B reast Self Exam discussed and technique reviewed Last Documented On 5 11:09AM ; [facility] Use a condom during sexual i ntercourse Last Documented On 5 11:09AM ; [facility] Instructed to call if excess uche bleeding or abdominal/pelvic pain Last Documented On 5 11:09AM ; [facility] Recommend diet and exercise at least 30 min three times per week Last Documented On 5 11:09AM ; [facility] Instructions for patient : B reast Self Exam discussed and technique reviewed Last Documented On 3 2:14PM ; [facility] Use a condom during sexual i ntercourse Last Documented On 3 2:14PM ; [facility] Instructed to call if excess uche bleeding or abdominal/pelvic pain Last Documented On 3 2:14PM ; [facility] Recommend diet and exercise at least 30 min three times per week Last Documented On 3 2:14PM ; [facility] Recommend CBC, TSH, fasting glucose, fasting lipid panel if patient aged 25 or older Last Documented On 3 2:14PM ; [facility] Recommend preventative vacci nation including but not limited to influenza/flu vaccine, DTP, Rubella, Hepatitis B vaccination series Last Documented On 3 2:14PM ; [facility] Instructions for patient : B reast Self Exam discussed and technique reviewed Last Documented On 1 10:37PM ; [facility] Education and Decision Aids were provided during visit for: Discussed smoking and drug u se Last Documented On 5 11:09AM ; [facility] Patient education RE: randall rossi signals associated with hormonal contraceptive use including abdominal, chest, or leg pain, headaches or visual disturbances Last Documented On 5 11:09AM ; [facility] Patient Education: Daily junior cium and vitamin D Last Documented On 5 11:09AM ; [facility] control consent review ed and signed Last Documented On 5 11:09AM ; [facility] Discussed use of seat belts Last Documented On 3 2:14PM ; [facility] Discussed smoking and drug u se Last Documented On 3 2:14PM ; [facility] Discussed risk-taking behavi or Last Documented On 3 2:14PM ; [facility] Patient education RE: randall rossi signals associated with hormonal contraceptive use including abdominal, chest, or leg pain, headaches or visual disturbances Last Documented On 3 2:14PM ; [facility] Patient Education: Daily junior cium and vitamin D Last Documented On 3 2:14PM ; [facility] Pt initially wanted the IUD removed as [...] agreed Last Documented On 2 5:36PM ; [facility] Assessments Includes: Assessments for all patient encounters Findings Encounter Date Fibrocystic disease of breast GRADUATE RN EXAM with ULISES KIDD MD 04/05/2017 Last Documented On 8 2:06PM ; [facility] NORMAL FEMALE EXAM GRADUATE RN EXAM with ULISES KIDD MD 04/05/2017 Last Documented On 8 2:06PM ; [facility] POST OP VISIT POST OP VISIT with ULISES Donaldson MD 03/02/2016 Last Documented On 6 4:49PM ; [facility] depression POST OP VISIT with ULISES AKINS MD 03/02/2016 Last Documented On 6 4:49PM ; [facility] POST OP VISIT 2 WK CK-UP with ULISES Harley 02/10/2016 Last Documented On 6 4:24PM ; [facility] Methicillin resistant staphy lococcus aureus infection day 2 Bactrim POST OP VISIT with RUDY COOPER RN [facility] 12/05/2015 Last Documented On 6 3:30PM ; [facility] depression well c ontrolled w/current rx POST OP VISIT with RUDY COOPER RN [facility] 12/05/2015 Last Documented On 6 3:30PM ; [facility] Routine history and physical POST OP VISIT with RUDY COOPER RN [facility] 12/05/2015 Last Documented On 6 3:30PM ; [facility] Infections of skin and subcu taneous tissue PROBLEM VISIT with RUDY COOPER RN [facility] 11/27/2015 Last Documented On 6 3:00PM ; [facility] depression resolv ing per pt report w/Sertraline use PROBLEM VISIT with RUDY COOPER RN [facility] 11/27/2015 Last Documented On 6 3:00PM ; [facility] depression PROBLEM VISIT with ULISES AKINS MD 11/20/2015 Last Documented On 6 1:24PM ; [facility] POST OP VISIT POST OP VISIT with ULISES Donaldson MD 11/08/2015 Last Documented On 6 11:52AM ; [facility] Contraceptive management GRADUATE RN EXAM with RUDY GARCIA RN [facility] 10/12/2014 Last Documented On 5 11:32AM ; [facility] Risk: tobacco use GRADUATE RN EXAM with RUDY COOPER RN [facility] 10/12/2014 Last Documented On 5 11:32AM ; [facility] Routine gynecological exam GRADUATE RN EXAM with RUDY COOPER RN [facility] 10/12/2014 Last Documented On 5 11:32AM ; [facility] Contraceptive surveillance IUD INSITU AN NUAL [employer] EXAM with RUDY COOPER RN [facility] 12/27/2012 Last Documented On 3 2:22PM ; [facility] Risk: tobacco use ANNUAL [employer] EXAM with RUDY GARCIA RN [facility] 12/27/2012 Last Documented On 3 2:22PM ; [facility] Routine gynecological exam ANNUAL [employer] EXAM with RUDY COOPER RN [facility] 12/27/2012 Last Documented On 3 2:22PM ; [facility] Dyspareunia -- resolved 2 WK CK-UP with ULISES MARTE MD 06/18/2011 Last Documented On 2 4:42PM ; [facility] Checking intrauterine device (IUD) PROBLEM VISIT with ULISES KIDD MD 06/04/2011 Last Documented On 2 5:37PM ; [facility] Dyspareunia PROBLEM VISIT with ULISES Donaldson MD 06/04/2011 Last Documented On 2 5:37PM ; [facility] Vaginal candidiasis PROBLEM VISIT with ULISES PALMER MD 06/04/2011 Last Documented On 2 5:37PM ; [facility] Breast fibrocystic disease NEW GRADUATE RN EXAM with ULISES KIDD MD 02/16/2011 Last Documented On 1 10:49PM ; [facility] Checking intrauterine device (IUD) NEW GRADUATE RN EXAM with ULISES KIDD MD 02/16/2011 Last Documented On 1 10:49PM ; [facility] NORMAL FEMALE EXAM NEW GRADUATE RN EXAM with ULISES JIMENEZ MD 02/16/2011 Last Documented On 1 10:49PM ; [facility] Instructions Includes: Instructions for all patient encounters Instructions to patient Instructions for patient : B reast Self Exam discussed and technique reviewed Last Documented On 8 1:43PM ; [facility] Instructions for patient : B reast Self Exam discussed and technique reviewed Last Documented On 5 11:09AM ; [facility] Use a condom during sexual i ntercourse Last Documented On 5 11:09AM ; [facility] Instructed to call if excess uche bleeding or abdominal/pelvic pain Last Documented On 5 11:09AM ; [facility] Recommend diet and exercise at least 30 min three times per week Last Documented On 5 11:09AM ; [facility] Instructions for patient : B reast Self Exam discussed and technique reviewed Last Documented On 3 2:14PM ; [facility] Use a condom during sexual i ntercourse Last Documented On 3 2:14PM ; [facility] Instructed to call if excess uche bleeding or abdominal/pelvic pain Last Documented On 3 2:14PM ; [facility] Recommend diet and exercise at least 30 min three times per week Last Documented On 3 2:14PM ; [facility] Recommend CBC, TSH, fasting glucose, fasting lipid panel if patient aged 25 or older Last Documented On 3 2:14PM ; [facility] Recommend preventative vacci nation including but not limited to influenza/flu vaccine, DTP, Rubella, Hepatitis B vaccination series Last Documented On 3 2:14PM ; [facility] Instructions for patient : B reast Self Exam discussed and technique reviewed Last Documented On 1 10:37PM ; [facility] Education and Decision Aids were provided during visit for: Discussed smoking and drug u se Last Documented On 5 11:09AM ; [facility] Patient education RE: [email or web address] flo signals associated with hormonal contraceptive use including abdominal, chest, or leg pain, headaches or visual disturbances Last Documented On 5 11:09AM ; [facility] Patient Education: Daily junior cium and vitamin D Last Documented On 5 11:09AM ; [facility] control consent review ed and signed Last Documented On 5 11:09AM ; [facility] Discussed use of seat belts Last Documented On 3 2:14PM ; [facility] Discussed smoking and drug u se Last Documented On 3 2:14PM ; [facility] Discussed risk-taking behavi or Last Documented On 3 2:14PM ; [facility] Patient education RE: dorisrubén g signals associated with hormonal contraceptive use including abdominal, chest, or leg pain, headaches or visual disturbances Last Documented On 3 2:14PM ; [facility] Patient Education: Daily junior cium and vitamin D Last Documented On 3 2:14PM ; [facility] Pt initially wanted the IUD [...] agreed Last Documented On 2 5:36PM ; [facility] Medical Equipment - Implanted Devices Includes: Current and historical Devices No Medical Equipment Recorded Medications Includes: Current and historical Medications Current Medications (continue as prescribed) Acyclovir 400MG Oral Tablet 04/05/2017 Provider: ULISES KIDD MD Diagnosis: Si tabs 2 x per day x 5 days prn outbreaks. Last Documented On 04/05/2017 2:06PM By ULISES KIDD MD ; [facility] TiZANidine HCl 4MG Oral Tablet 04/05/2017 Provider: Diagnosis: Last Documented On 8 1:25PM By ASH MORALES Eyal ; [facility] Diclofenac Sodium 75MG Oral Tablet, enteric coated Provider: Diagnosis: Last Documented On 8 1:25PM By ASH YOO ; [facility] Stool Softener 100MG Oral Capsule, conventional 2017 Provider: Diagnosis: Last Documented On 8 1:27PM By ASH MORALES Eyal ; [facility] Tylenol with Codeine #4 300-60MG Oral Tablet 8 Provider: Diagnosis: Last Documented On 8 1:28PM By ASH MORALES Eyal ; [facility] Sertraline HCl 50 MG Tablet 03/02/2016 Provider: ULISES KIDD MD Diagnosis: Mental and behav rl disorders assoc with the puerperium, NEC One tablet daily Last Documented On 03/02/2016 4:47PM By ULISES KIDD MD ; [facility] Formula 27-1 MG Tablet 04/09/2015 Provider: ULISES KIDD MD Diagnosis: Encounter for roberts prvsn of normal , first trimester One tablet daily generic pnv with 1 mg folic acid, may substitute as needed to fill Last Documented On 04/09/2015 10:20AM By ULISES KIDD MD ; [facility] Past Medications on file Bactrim DS 800-160MG Oral Tablet 01/11/2017 - 04/05/19 18 Provider: Diagnosis: Last Documented On 8 1:25PM By ASH YOO ; [facility] Premium Condoms Lubricated Miscellaneous 12/12/2015 - 01/11/2016 Provider: RUDY CLARK Diagnosis: Encounter for in itial prescription of other contraceptives as directed USE DIRECTED Last Documented On 6 1:53PM By RUDY WATERS ; [facility] Sertraline HCl 50 MG Tablet 12/12/2015 - 03/02/2016 Provider: RUDY CLARK Diagnosis: Mental and behav rl disorders assoc with the puerperium, NEC One tablet daily Last Documented On 03/02/2016 4:46PM By ULISES KIDD MD ; [facility] Sertraline HCl 50 MG Tablet 12/05/2015 - 12/12/2015 Provider: RUDY CLARK Diagnosis: Mental and behav rl disorders assoc with the puerperium, NEC One tablet daily Last Documented On 6 1:55PM By RUDY WATERS ; [facility] Sulfamethoxazole-Trimethopri m 800-160 MG Tablet 12/03/2015 - 12/13/2015 Provider: RUDY CLARK Diagnosis: Local infection of the skin and subcutaneous tissue, unsp One tablet twice a day ONE TAB 2 TIMES A DAY WIT H FOOD Last Documented On 6 9:26AM By RUDY WATERS ; [facility] Ibuprofen 600 MG Tablet 11/27/2015 - 12/02/2015 Provider: RUDY CLARK Diagnosis: Local infection of the skin and subcutaneous tissue, unsp 1 every 4 - 6 hours as neede d atke as directed w/food Last Documented On 6 2:51PM By RUDY WATERS ; [facility] Fluconazole 150 MG Tablet 11/27/2015 - 11/29/2015 Provider: RUDY CLARK Diagnosis: Local infection of the skin and subcutaneous tissue, unsp 1 daily Pt. is to take 1 day 4 of antibiotics and 1 tablet day 7 Last Documented On 6 2:51PM By RUDY WATERS ; [facility] Cephalexin 500 MG Capsule, conventional 11/27/2015 - 12/04/2015 Provider: RUDY CLARK Diagnosis: Local infection of the skin and subcutaneous tissue, unsp One tablet four times a day TAKE DIRECTED W/FOOD Last Documented On 6 2:51PM By RUDY WATERS ; [facility] Sertraline HCl 50 MG Tablet 11/20/2015 - 12/05/2015 Provider: ULISES Harley Diagnosis: Mental and behav rl disorders assoc with the puerperium, NEC One tablet daily Last Documented On 6 2:09PM By RUDY WATERS ; [facility] Acyclovir 400 MG Tablet 09/10/2015 - 04/05/2017 Provider: ULISES Harley Diagnosis: Encounter for roberts prvsn of normal , third trimester One tablet twice a day Last Documented On 04/05/2017 2:05PM By ULISES KIDD MD ; [facility] NuvaRing 0.12-0.015 MG/24HR Ring 01/07/2015 - 01/28/2015 Provider: RUDY IRIZARRY Diagnosis: Encounter for ot h general cnsl and advice on contraception as directed INSERT 1 RING IN TO VAGINA FIRST WEDNESDAY NEXT MENSES X 3 WEEKS REMOVE X 1 WEEK THEN REPLACE WITH NEW Last Documented On 5 1:08PM By RUDY WATERS ; [facility] NuvaRing 0.12-0.015 MG/24HR Ring 01/07/2015 - 01/04/2015 Provider: RUDY IRIZARRY Diagnosis: Encounter for ot h general cnsl and advice on contraception as directed INSERT 1 RING IN TO VAGINA FIRST WEDNESDAY NEXT MENSES X 3 WEEKS REMOVE X 1 WEEK THEN REPLACE WITH NEW Last Documented On 5 11:05AM By RUDY WATERS ; [facility] Nitrofurantoin Macrocrystal 100 MG Capsule 10/23/2014 - 11/20/2015 Provider: RUDY IRIZARRY BC Diagnosis: URIN TRACT INFEC TION NOS One tablet twice a day USE DIRECTED W/FOOD Last Documented On 6 1:03PM By SHANDA GARCIA LPN ; [facility] NuvaRing 0.12-0.015 MG/24HR Ring 10/12/2014 - 01/04/2015 Provider: RUDY IRIZARRY BC Diagnosis: OTHER FAMILY CAPRICE NNING ADVICE NEC as directed INSERT 1 RING IN TO VAGINA FIRST WEDNESDAY NEXT MENSES X 3 WEEKS REMOVE X 1 WEEK THEN REPLACE WITH NEW Last Documented On 5 10:22AM By RUDY WATERS ; [facility] Diflucan 150 MG OR TABS 06/04/2011 - 11/20/2015 Provid er: ULISES KIDD MD Diagnosis: one tablet po, prn yeast infection Last Documented On 6 1:04PM By SHANDA GARCIA LPN ; [facility] Imitrex 25 MG OR TABS 02/16/2011 - 10/12/2014 Provider : Diagnosis: Last Documented On 5 11:31AM By RUDY WATERS ; [facility] Naproxen 500 MG OR TABS 02/16/2011 - 04/05/2017 Provid er: Diagnosis: Last Documented On 8 1:25PM By ASH YOO ; [facility] Mirena (52 MG) 20 MCG/24HR IU IUD 02/16/2011 - 015 Provider: Diagnosis: IMPLANTED Last Documented On 5 11:31AM By RUDY WATERS ; [facility] Medications Administered Includes: Administered Medications [...] 04/05/2017 Last Documented On 8 2:06PM ; [facility] The first insertion of an IUD was: was o n 10/16/2009: removed 10/12/2014; 04/05/2017 Last Documented On 8 2:06PM ; [facility] Alcohol use once a month sometimes 04/05 Last Documented On 8 2:06PM ; [facility] Marital history Engaged lives with fianc e for years 04/05/2017 Last Documented On 8 2:06PM ; [facility] Not using drugs 04/05/2017 Last Documented On 8 2:06PM ; [facility] Sexually active with 1 partners in the l ast year 02/10/2016 Last Documented On 6 4:24PM ; [facility] Education history 12/12/2015 Last Documented On 6 2:17PM ; [facility] Not exercising regularly 12/12/2015 Last Documented On 6 2:17PM ; [facility] Personal history 12/12/2015 Last Documented On 6 2:17PM ; [facility] Sexually active 12/12/2015 Last Documented On 6 2:17PM ; [facility] Sexually active 5 weeks sperm acide 12/12/2015 Last Documented On 6 2:17PM ; [facility] Single 12/12/2015 Last Documented On 6 2:17PM ; [facility] Smoking status : Current everyday smoker 12/12/2015 Last Documented On 6 2:17PM ; [facility] Social history unchanged 12/12/2015 Last Documented On 6 2:17PM ; [facility] Tobacco use 04/09/2015 Last Documented On 6 10:41AM ; [facility] Procedures and Surgical History Surgical History Last Updated Previous colposcopy she thinks years ago with TCK 04/05/2017 Last Documented On 8 2:06PM ; [facility] History of tubal ligation 04/05/2017 Last Documented On 8 2:06PM ; [facility] Surgical history unchanged 10/12/2014 Last Documented On 5 11:32AM ; [facility] Dilation + Curettage 02/16/2011 Last Documented On 1 10:49PM ; [facility] History of appendectomy 02/16/2011 Last Documented On 1 10:49PM ; [facility] History of Loop electrode excision of ce rvix (LEEP) 06-20-08 02/16/2011 Last Documented On 1 10:49PM ; [facility] Medical History Includes: Medical History in patient's chart Description Last Updated A recent methicillin-resista nt Staphylococcus aureus infection : post section in 2016; 04/05/2017 Last Documented On 8 2:06PM ; [facility] section 10/25/2015 Emergency c/s TCK 04/05/2017 Last Documented On 8 2:06PM ; [facility] 6 04/05/2017 Last Documented On 8 2:06PM ; [facility] Para 2 04/05/2017 Last Documented On 8 2:06PM ; [facility] LMP: 03/18/2017 04/05/2017 Last Documented On 8 2:06PM ; [facility] Last pap smear date 03/02/2016 8 Last Documented On 8 2:06PM ; [facility] PRIMARY CARE PROVIDER : jada jacinto NP 03/02/2016 Last Documented On 6 4:49PM ; [facility] Status post tubal ligation 02/10/2016 Last Documented On 6 4:24PM ; [facility] Not using contraception has signed BTL 0 12/12/2015 Last Documented On 6 2:17PM ; [facility] Sexually active 12/12/2015 Last Documented On 6 2:17PM ; [facility] Infant is bottle-feeding 11/27/2015 Last Documented On 6 3:00PM ; [facility] History of Pap smear done 10/12/2014 090 09/2015 Last Documented On 6 3:00PM ; [facility] History of Abnormal Pap Smear 04/09/2015 Last Documented On 6 10:21AM ; [facility] History of depression 04/09/2015 Last Documented On 6 10:21AM ; [facility] No recent change in medical history 09/20 Last Documented On 5 11:32AM ; [facility] No exposure to venereal disease per pt 0 06/18/2011 Last Documented On 2 5:37PM ; [facility] Result: normal GC/CT CULTURES NEGATIVE 0 06/18/2011 Last Documented On 2 4:42PM ; [facility] Vaginal delivery once 02/16/2011 Last Documented On 1 10:49PM ; [facility] History of cervical dysplasia 02/16/2011 Last Documented On 1 10:49PM ; [facility] History of urinary tract infection 02/16 Last Documented On 1 10:49PM ; [facility] Aborta 4 02/16/2011 Last Documented On 1 10:49PM ; [facility] Family History Includes: Family History in patient's chart Description Last Updated First child named 10/12/2006 vaginal TCK 04/05/2017 Last Documented On 8 2:06PM ; [facility] Second child named 10/25/15 TCK emergency c/s 04/05/2017 Last Documented On 8 2:06PM ; [facility] mom with skin cancer 04/05/2017 Last Documented On 8 2:06PM ; [facility] Family history of diabetes mellitus FAMI LY HX OF 10/12/2014 Last Documented On 5 11:32AM ; [facility] Family history of heart disease FAMILY H X OF 10/12/2014 Last Documented On 5 11:32AM ; [facility] Family history of hypercholesterolemia F AMILY HX OF 10/12/2014 Last Documented On 5 11:32AM ; [facility] Family history of hypertension FAMILY HX OF 10/12/2014 Last Documented On 5 11:32AM ; [facility] Family history of malignant neoplasm of the large intestine paternal GRANDFATHER 10/12/2014 Last Documented On 5 11:32AM ; [facility] No family history of malignant female br east neoplasm 10/12/2014 Last Documented On 5 11:32AM ; [facility] No family history of malignant neoplasm of the ovary 10/12/2014 Last Documented On 5 11:32AM ; [facility] No family history of uterine cancer 09/20 Last Documented On 5 11:32AM ; [facility] Family history unchanged 10/12/2014 Last Documented On 5 11:32AM ; [facility] Review of Systems Review of [...] Documented On 04/09/2015 9:39AM ; [facility] Note: THROW-UP AND PASS OUT Clinical Notes Includes: Signed Clinical Notes starting from 04/10/2022 No Clinical Notes Recorded
--- OUTSIDE RECORDS SUMMARY | 2024-04-13 14:17 | XMS_ITS | Clinical Summary ---
Author Organization [facility] Address [address] [place] [address] Phone Care Team Providers Care White Sugar Boiler Name Role Phone Unavailable Unavailable Unavailable Reason for Visit and Chief Complaint The patient presents for a problem. - The Chief Complaint is: Annual pt c/o heavy cycles and extra hair growing everywhere Problems Includes: Problems addressed during this encounter and other active Problems Current Visit Onset Date Resolved Date Provider Isiaho n Status Alcohol Use 04/09/2015 Unknown ULISES KIDD MD Resol ed Last Documented On 05/27/2018 11:02AM ; [facility] Note: was Closed. History of Abnormal Pap Smear 04/09/2015 Unknown ULISES KIDD MD Resolved Last Documented On 05/27/2018 11:02AM ; [facility] Note: was Closed. History of Depression 04/09/2015 Unknown ULISES KIDD MD Resolved Last Documented On 05/27/2018 11:02AM ; [facility] Note: was Closed. Tobacco Use 04/09/2015 Unknown ULISES KIDD MD [facility] ed Last Documented On 05/27/2018 11:02AM ; [facility] Note: was Closed. History of Cervical Dysplasia 12/27/2012 RUDY COOPER RN SIMEON Active Last Documented On 12/27/2012 2:21PM ; [facility] Note: Unchanged History of Urinary Tract Infection 12/27/2012 RUDY COOPER RN SIMEON Active Last Documented On 12/27/2012 2:21PM ; [facility] Note: Unchanged Smoking Cigarettes 12/27/2012 RUDY GARCIA RN [facility] Active Last Documented On 12/27/2012 2:21PM ; [facility] Note: Unchanged - 1 PACK A DAY FOR TEN Y EARS Past Visits Onset Date Resolved Date Provider Condition Status Depression 11/20/2015 ULISES KIDD MD Active Last Documented On 11/20/2015 1:24PM ; [facility] Note: Unchanged Gestational edema, third trimester 08/27/2015 ULISES KIDD MD Active Last Documented On 08/27/2015 3:49PM ; [facility] Note: Unchanged Maternal care for excess growth, third tri, fetus 1 08/27/2015 ULISES KIDD MD Active Last Documented On 08/27/2015 3:49PM ; [facility] Note: Unchanged Encounter for suprvsn of normal , third trimester 08/27/2015 ULISES KIDD MD Active Last Documented On 08/27/2015 3:49PM ; [facility] Note: Unchanged 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 Patient to call the office in the meantime if she has other problems or questions. - Last Documented On 04/05/2017 2:06PM ; [facility] Instructions to patient Instructions for patient : B reast Self Exam discussed and technique reviewed Last Documented On 8 1:43PM ; [facility] Assessments Includes: Assessments from this encounter Findings - Fibrocystic disease of breast - Last Documented On 04/05/2017 2:06PM ; [facility] - NORMAL FEMALE EXAM - Last Documented On 04/05/2017 2:06PM ; [facility] Instructions Includes: Instructions from this encounter Instructions to patient Instructions for patient : B reast Self Exam discussed and technique reviewed Last Documented On 8 1:43PM ; [facility] Medical Equipment - Implanted Devices Includes: Current Devices No Medical Equipment Recorded Medications Includes: Medications discussed during this encounter and other current Medications Discontinued / Stopped on this date on 01/11/2017 Bactrim DS 800-160MG Oral Tablet Provider : Diagnosis: Last Documented On 8 1:25PM By ASH YOO ; [facility] Naproxen 500 MG OR TABS Provider: Diagnosis: Last Documented On 8 1:25PM By ASH YOO ; [facility] New / Renewed during this visit ULISES KIDD MD on 04/05/2017 Acyclovir 400MG Oral Tablet Provider: ULISES KIDD MD 30 day supply: 60 tablet, 2 refills Diagnosis: Si tabs 2 x per day x 5 days prn outbreaks. Pharmacy: [facility], [id number] - Last Documented On 04/05/2017 2:06PM By ULISES KIDD MD ; [facility] Current Medications (continue as prescribed) TiZANidine HCl 4MG Oral Tablet 04/05/2017 Provider: Diagnosis: Last Documented On 8 1:25PM By ASH YOO ; [facility] Diclofenac Sodium 75MG Oral Tablet, enteric coated Provider: Diagnosis: Last Documented On 8 1:25PM By ASH YOO ; [facility] Stool Softener 100MG Oral Capsule, conventional 2017 Provider: Diagnosis: Last Documented On 8 1:27PM By ASH YOO ; [facility] Tylenol with Codeine #4 300-60MG Oral Tablet 8 Provider: Diagnosis: Last Documented On 8 1:28PM By ASH YOO ; [facility] Sertraline HCl 50 MG Tablet 03/02/2016 Provider: ULISES KIDD MD Diagnosis: Mental and behav rl disorders assoc with the puerperium, NEC One tablet daily Last Documented On 03/02/2016 4:47PM By ULISSE KIDD MD ; [facility] Formula 27-1 MG Tablet 04/09/2015 Provider: ULISES KIDD MD Diagnosis: Encounter for roberts prvsn of normal , first trimester One tablet daily generic pnv with 1 mg folic acid, may substitute as needed to fill Last Documented On 04/09/2015 10:20AM By ULISES KIDD MD ; [facility] Past Medications on file Premium Condoms Lubricated Miscellaneous 12/12/2015 - 01/11/2016 Provider: RUDY COOPER RN NP Diagnosis: Encounter for in itial prescription of other contraceptives as directed USE DIRECTED Last Documented On 6 1:53PM By RUDY WATERS ; [facility] Sulfamethoxazole-Trimethopri m 800-160 MG Tablet 12/03/2015 - 12/13/2015 Provider: RUDY IRIZARRY Diagnosis: Local infection of the skin and subcutaneous tissue, unsp One tablet twice a day ONE TAB 2 TIMES A DAY WIT H FOOD Last Documented On 6 9:26AM By RUDY WATERS ; [facility] Ibuprofen 600 MG Tablet 11/27/2015 - 12/02/2015 Provider: RUDY IRIZARRY Diagnosis: Local infection of the skin and subcutaneous tissue, unsp 1 every 4 - 6 hours as neede d atke as directed w/food Last Documented On 6 2:51PM By RUDY WATERS ; [facility] Fluconazole 150 MG Tablet 11/27/2015 - 11/29/2015 Provider: RUDY CLARK Diagnosis: Local infection of the skin and subcutaneous tissue, unsp 1 daily Pt. is to take 1 day 4 of antibiotics and 1 tablet day 7 Last Documented On 6 2:51PM By RUDY WATERS ; [facility] Cephalexin 500 MG Capsule, conventional 11/27/2015 - 12/04/2015 Provider: RUDY IRIZARRY Diagnosis: Local infection of the skin and subcutaneous tissue, unsp One tablet four times a day TAKE DIRECTED W/FOOD Last Documented On 6 2:51PM By RUDY WATERS ; [facility] Medications Administered Includes: Administered Medications from this encounter No Administered Medications Recorded Vital Signs Includes: Vital Signs from this encounter Vital Name 04/05/2017 01:17P Blood Pressure Sitting (mmHg) 110/80 Height (in) 65.5 Weight (lb) 171.25 Body Mass Index (kg/m2) 28.1 Body Surface Area (m2) 1.9 Last Documented: On 04/05/2017 1:25PM ; [facility] Results Includes: Results discussed during this encounter No Results Recorded For Specified Dates History of Present Illness Includes: History of Present Illness from this encounter RICK DOMINGO is a 32 year old female. - Medication list reviewed. Menses are on time monthly. They are heavier than they used to be. In her heaviest 24 hours she needs 10-12 items per 24 hours for each of 1-2 days of a 4-6 day toal flow. They have been this heavy for 2-3 cycles. Social History Description Last Updated Cigarette smoking 1 pack(s)/day 1 PACK A DAY FOR 15 YEARS 04/05/2017 Last Documented On 8 2:06PM ; [facility] The first insertion of an IUD was: was o n 10/16/2009: removed 10/12/2014; 04/05/2017 Last Documented On 8 2:06PM ; [facility] Alcohol use once a month sometimes 04/05 Last Documented On 8 2:06PM ; [facility] Marital history Engaged lives with lilia e for years 04/05/2017 Last Documented On 8 2:06PM ; [facility] Not using drugs 04/05/2017 Last Documented On 8 2:06PM ; [facility] Sexually active with 1 partners in the l ast year 02/10/2016 Last Documented On 8 1:16PM ; [facility] Education history 12/12/2015 Last Documented On 8 1:16PM ; [facility] Not exercising regularly 12/12/2015 Last Documented On 8 1:16PM ; [facility] Personal history 12/12/2015 Last Documented On 8 1:16PM ; [facility] Sexually active 12/12/2015 Last Documented On 8 1:16PM ; [facility] Sexually active 5 weeks sperm acide 12/12/2015 Last Documented On 8 1:16PM ; [facility] Tobacco use 04/09/2015 Last Documented On 8 1:16PM ; [facility] Smoking Status Unknown Procedures and Surgical History Includes: Procedures from this encounter Procedures Code Diagnosis Performing Provider Service L ocation Service Date Clinical summary provided to patient Last Documented On 8 1:43PM ; [facility] cervical Pap smear 83067 Last Documented On 8 1:43PM ; [facility] Surgical History Last Updated Previous colposcopy she thinks years ago with TCK 04/05/2017 Last Documented On 8 2:06PM ; [facility] History of tubal ligation 04/05/2017 Last Documented On 8 2:06PM ; [facility] Dilation + Curettage 02/16/2011 Last Documented On 8 1:16PM ; [facility] History of appendectomy 02/16/2011 Last Documented On 8 1:16PM ; [facility] History of Loop electrode excision of ce rvix (LEEP) 402/16/2011 Last Documented On 8 1:16PM ; [facility] Medical History Includes: Medical History addressed during this encounter Description Last Updated A recent methicillin-resista nt Staphylococcus aureus infection : post section in 2015; 04/05/2017 Last Documented On 8 2:06PM ; [facility] section 10/25/2015 Emergency c/s TCK 04/05/2017 Last Documented On 8 2:06PM ; [facility] 6 04/05/2017 Last Documented On 8 2:06PM ; [facility] Para 2 04/05/2017 Last Documented On 8 2:06PM ; [facility] LMP: 03/18/2017 04/05/2017 Last Documented On 8 2:06PM ; [facility] Last pap smear date 03/02/2016 8 Last Documented On 8 2:06PM ; [facility] PRIMARY CARE PROVIDER : jada jacinto NP 03/02/2016 Last Documented On 8 1:16PM ; [facility] Status post tubal ligation 02/10/2016 Last Documented On 8 1:16PM ; [facility] Not using contraception has signed BTL 0 12/12/2015 Last Documented On 8 1:16PM ; [facility] Sexually active 12/12/2015 Last Documented On 8 1:16PM ; [facility] History of Pap smear done 10/12/2014 09/0 09/2015 Last Documented On 8 1:16PM ; [facility] History of Abnormal Pap Smear LEEP cone 06/20/2008: SHILOH I 04/09/2015 Last Documented On 8 1:16PM ; [facility] History of depression 10 y ol d, meds 14-20 y old; with post depression: zoloft, lexapro 04/09/2015 Last Documented On 8 1:16PM ; [facility] Result: normal GC/CT CULTURES NEGATIVE 0 06/18/2011 Last Documented On 8 1:16PM ; [facility] Vaginal delivery once 02/16/2011 Last Documented On 8 1:16PM ; [facility] History of cervical dysplasia 02/16/2011 Last Documented On 8 1:54PM ; [facility] History of urinary tract infection 02/16 Last Documented On 8 1:54PM ; [facility] Aborta 4 02/16/2011 Last Documented On 8 1:16PM ; [facility] Family History Includes: Family History addressed during this encounter Description Last Updated First child named 10/12/2006 vaginal TCK 04/05/2017 Last Documented On 8 2:06PM ; [facility] Second child named 10/25/15 TCK emergency c/s 04/05/2017 Last Documented On 8 2:06PM ; [facility] mom with skin cancer 04/05/2017 Last Documented On 8 2:06PM ; [facility] Family history of diabetes mellitus FAMI LY HX OF 10/12/2014 Last Documented On 8 1:16PM ; [facility] Family history of heart disease FAMILY H X OF 10/12/2014 Last Documented On 8 1:16PM ; [facility] Family history of hypercholesterolemia F AMILY HX OF 10/12/2014 Last Documented On 8 1:16PM ; [facility] Family history of hypertension FAMILY HX OF 10/12/2014 Last Documented On 8 1:16PM ; [facility] Family history of malignant neoplasm of the large intestine paternal GRANDFATHER 10/12/2014 Last Documented On 8 1:16PM ; [facility] Review of Systems Includes: Review of Systems from this encounter Systemic: No night sweats. Head: No headache. Breasts: No breast lump, no nipple discharge, and no pain in breast. Cardiovascular: No chest pain or discomfort and no palpitations. Pulmonary: No cough. Gastrointestinal: No nausea, no vomiting, no abdominal pain, and no melena. No diarrhea. Genitourinary: No hematuria and no increase in urinary frequency. No dysuria. No genital lesion. Endocrine: Libido has not changed. Musculoskeletal: No muscle aches. Neurological: No dizziness. Psychological: No anxiety and no depression. Skin: No skin lesions. Mental Status Includes: Mental Status from this encounter Description Oriented to time, place, and person No anxiety Functional Status Includes: Functional Status from this encounter No Functional Status Recorded Physical Exam Includes: Physical Exam from this encounter Allergies Includes: Active Allergies Substance Type Reaction Onset Date Resolved Date Statu s Codeine Allergy Nausea, Vomiting , Diarrhea / Diarrheal disorder, Shock, Unconsciousness 02/16/2011 Resolved Last Documented On 04/09/2015 9:39AM ; [facility] Note: THROW-UP AND PASS OUT Encounters Encounter Provider Location Date Check-In Time Check-Out Time Diagnosis 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
--- OUTSIDE RECORDS SUMMARY | 2024-04-13 14:18 | XMS_ITS | Clinical Summary ---
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 Problems Includes: Problems addressed during this encounter and other active Problems All Visits Onset Date Resolved Date Provider Condition S tatus Depression 11/20/2015 ULISES KIDD MD Active Last Documented On 11/20/2015 1:24PM ; [facility] Note: Unchanged Gestational edema, third trimester 08/27/2015 ULISES KIDD MD Active Last Documented On 08/27/2015 3:49PM ; [facility] Note: Unchanged Maternal care for excess growth, third tri, fetus 1 08/27/2015 ULISES KIDD MD Active Last Documented On 08/27/2015 3:49PM ; [facility] Note: Unchanged Encounter for suprvsn of normal , third trimester 08/27/2015 ULISES KIDD MD Active Last Documented On 08/27/2015 3:49PM ; [facility] Note: Unchanged 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 RUDY COOPER RN SIMEON BC Active Last Documented On 3 1:54PM ; [facility] History of Cervical Dysplasia 12/27/2012 RUDY COOPER RN Cristy P BC Active Last Documented On 12/27/2012 2:21PM ; [facility] Note: Unchanged History of Urinary Tract Infection 12/27/2012 RUDY COOPER RN Cristy P BC Active Last Documented On 12/27/2012 2:21PM ; [facility] Note: Unchanged Smoking Cigarettes [...] 04/05/2017 2:06PM By ULISES KIDD MD ; [facility] TiZANidine HCl 4MG Oral Tablet 04/05/2017 Provider: Diagnosis: Last Documented On 8 1:25PM By ASH MORALES Eyal ; [facility] Diclofenac Sodium 75MG Oral Tablet, enteric coated Provider: Diagnosis: Last Documented On 8 1:25PM By ASH MORALES Eyal ; [facility] Stool Softener 100MG Oral Capsule, conventional 2017 Provider: Diagnosis: Last Documented On 8 1:27PM By ASH MORALES Eyal ; [facility] Tylenol with Codeine #4 300-60MG Oral Tablet 8 Provider: Diagnosis: Last Documented On 8 1:28PM By ASH MORALES Eyal ; [facility] Sertraline HCl 50 MG Tablet 03/02/2016 Provider: ULISES KIDD MD Diagnosis: Mental and behav rl disorders assoc with the puerperium, NEC One tablet daily Last Documented On 03/02/2016 4:47PM By ULISES KIDD MD ; [facility] Formula 27-1 MG Tablet 04/09/2015 Provider: ULISES KIDD MD Diagnosis: Encounter for roberts prvsn of normal , first trimester One tablet daily generic pnv with 1 mg folic acid, may substitute as needed to fill Last Documented On 04/09/2015 10:20AM By ULISES KIDD MD ; [facility] Medications Administered Includes: Administered Medications from [...] Resolved Last Documented On 04/09/2015 9:39AM ; [facility] Note: THROW-UP AND PASS OUT Clinical Notes Includes: Clinical Notes from this encounter No Clinical Notes Recorded
--- OUTSIDE RECORDS SUMMARY | 2024-04-13 14:18 | XMS_ITS | Clinical Summary ---
Author Organization [facility] Address [address] [place] [address] Phone Care Team Providers Care Loader Magazine Grinder Name Role Phone Unavailable Unavailable Unavailable Reason [...] ed Last Documented On 05/27/2018 11:02AM ; [facility] Note: was Closed. History of Abnormal Pap Smear 04/09/2015 Unknown ULISES KIDD MD Resolved Last Documented On 05/27/2018 11:02AM ; [facility] Note: was Closed. History of Depression 04/09/2015 Unknown ULISES KIDD MD Resolved Last Documented On 05/27/2018 11:02AM ; [facility] Note: was Closed. Tobacco Use 04/09/2015 Unknown ULISES KIDD MD [facility] ed Last Documented On 05/27/2018 11:02AM ; [facility] Note: was Closed. History of Cervical Dysplasia 12/27/2012 RUDY COOPER RN SIMEON Active Last Documented On 12/27/2012 2:21PM ; [facility] Note: Unchanged History of Urinary Tract Infection 12/27/2012 RUDY COOPER RN SIMEON Active Last Documented On 12/27/2012 2:21PM ; [facility] Note: Unchanged Smoking Cigarettes 12/27/2012 RUDY GARCIA RN [facility] Active Last Documented On 12/27/2012 2:21PM ; [facility] Note: Unchanged - 1 PACK A DAY FOR TEN Y EARS Past Visits Onset Date Resolved Date Provider Condition Status Depression 11/20/2015 ULISES KIDD MD Active Last Documented On 11/20/2015 1:24PM ; [facility] Note: Unchanged Gestational edema, third trimester 08/27/2015 ULISES KIDD MD Active Last Documented On 08/27/2015 3:49PM ; [facility] Note: Unchanged Maternal care for excess growth, third tri, fetus 1 08/27/2015 ULISES KIDD MD Active Last Documented On 08/27/2015 3:49PM ; [facility] Note: Unchanged Encounter for suprvsn of normal , third trimester 08/27/2015 ULISES KIDD MD Active Last Documented On 08/27/2015 3:49PM ; [facility] Note: Unchanged 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 Active Last Documented On 3 1:54PM ; [facility] Plan of Treatment Return to the office in 1 year for follow up. Patient to call the office in the meantime if she has other problems or questions. - Last Documented On 04/05/2017 2:06PM ; [facility] Instructions to patient Instructions for patient : B reast Self Exam discussed and technique reviewed Last Documented On 8 1:43PM ; [facility] Assessments Includes: Assessments from this encounter Findings - Fibrocystic disease of breast - Last Documented On 04/05/2017 2:06PM ; [facility] - NORMAL FEMALE EXAM - Last Documented On 04/05/2017 2:06PM ; [facility] Instructions Includes: Instructions from this encounter Instructions to patient Instructions for patient : B reast Self Exam discussed and technique reviewed Last Documented On 8 1:43PM ; [facility] Medical Equipment - Implanted Devices Includes: Current Devices No Medical Equipment Recorded Medications Includes: Medications discussed during this encounter and other current Medications Discontinued / Stopped on this date on 01/11/2017 Bactrim DS 800-160MG Oral Tablet Provider : Diagnosis: Last Documented On 8 1:25PM By ASH YOO ; [facility] Naproxen 500 MG OR TABS Provider: Diagnosis: Last Documented On 8 1:25PM By ASH YOO ; [facility] New / Renewed during this visit ULISES KIDD MD on 04/05/2017 Acyclovir 400MG Oral Tablet Provider: ULISES KIDD MD 30 day supply: 60 tablet, 2 refills Diagnosis: Si tabs 2 x per day x 5 days prn outbreaks. Pharmacy: [id number], [id number] - Last Documented On 04/05/2017 2:06PM By ULISES KIDD MD ; [facility] Current Medications (continue as prescribed) TiZANidine HCl 4MG Oral Tablet 04/05/2017 Provider: Diagnosis: Last Documented On 8 1:25PM By ASH YOO ; [facility] Diclofenac Sodium 75MG Oral Tablet, enteric coated Provider: Diagnosis: Last Documented On 8 1:25PM By ASH YOO ; [facility] Stool Softener 100MG Oral Capsule, conventional 2017 Provider: Diagnosis: Last Documented On 8 1:27PM By ASH YOO ; [facility] Tylenol with Codeine #4 300-60MG Oral Tablet 8 Provider: Diagnosis: Last Documented On 8 1:28PM By ASH YOO ; [facility] Sertraline HCl 50 MG Tablet 03/02/2016 Provider: ULISES KIDD MD Diagnosis: Mental and behav rl disorders assoc with the puerperium, NEC One tablet daily Last Documented On 03/02/2016 4:47PM By ULISES KIDD MD ; [facility] Formula 27-1 MG Tablet 04/09/2015 Provider: ULISES KIDD MD Diagnosis: Encounter for roberts prvsn of normal , first trimester One tablet daily generic pnv with 1 mg folic acid, may substitute as needed to fill Last Documented On 04/09/2015 10:20AM By ULISES KIDD MD ; [facility] Past Medications on file Premium Condoms Lubricated Miscellaneous 12/12/2015 - 01/11/2016 Provider: RUDY COOPER RN NP Diagnosis: Encounter for in itial prescription of other contraceptives as directed USE DIRECTED Last Documented On 6 1:53PM By RUDY WATERS ; [facility] Sulfamethoxazole-Trimethopri m 800-160 MG Tablet 12/03/2015 - 12/13/2015 Provider: RUDY IRIZARRY Diagnosis: Local infection of the skin and subcutaneous tissue, unsp One tablet twice a day ONE TAB 2 TIMES A DAY WIT H FOOD Last Documented On 6 9:26AM By RUYD WATERS ; [facility] Ibuprofen 600 MG Tablet 11/27/2015 - 12/02/2015 Provider: RUDY IRIZARRY Diagnosis: Local infection of the skin and subcutaneous tissue, unsp 1 every 4 - 6 hours as neede d atke as directed w/food Last Documented On 6 2:51PM By RUDY WATERS ; [facility] Fluconazole 150 MG Tablet 11/27/2015 - 11/29/2015 Provider: RUDY CLARK Diagnosis: Local infection of the skin and subcutaneous tissue, unsp 1 daily Pt. is to take 1 day 4 of antibiotics and 1 tablet day 7 Last Documented On 6 2:51PM By RUDY WATERS ; [facility] Cephalexin 500 MG Capsule, conventional 11/27/2015 - 12/04/2015 Provider: RUDY IRIZARRY Diagnosis: Local infection of the skin and subcutaneous tissue, unsp One tablet four times a day TAKE DIRECTED W/FOOD Last Documented On 6 2:51PM By RUDY WATERS ; [facility] Medications Administered Includes: Administered Medications from this encounter No Administered Medications Recorded Vital Signs Includes: Vital Signs from this encounter Vital Name 04/05/2017 01:17P Blood Pressure Sitting (mmHg) 110/80 Height (in) 65.5 Weight (lb) 171.25 Body Mass Index (kg/m2) 28.1 Body Surface Area (m2) 1.9 Last Documented: On 04/05/2017 1:25PM ; [facility] Results Includes: Results discussed during this encounter [...] 04/05/2017 Last Documented On 8 2:06PM ; [facility] The first insertion of an IUD was: was o n 10/16/2009: removed 10/12/2014; 04/05/2017 Last Documented On 8 2:06PM ; [facility] Alcohol use once a month sometimes 04/05 Last Documented On 8 2:06PM ; [facility] Marital history Engaged lives with lilia e for years 04/05/2017 Last Documented On 8 2:06PM ; [facility] Not using drugs 04/05/2017 Last Documented On 8 2:06PM ; [facility] Sexually active with 1 partners in the l ast year 02/10/2016 Last Documented On 8 1:16PM ; [facility] Education history 12/12/2015 Last Documented On 8 1:16PM ; [facility] Not exercising regularly 12/12/2015 Last Documented On 8 1:16PM ; [facility] Personal history 12/12/2015 Last Documented On 8 1:16PM ; [facility] Sexually active 12/12/2015 Last Documented On 8 1:16PM ; [facility] Sexually active 5 weeks sperm acide 12/12/2015 Last Documented On 8 1:16PM ; [facility] Tobacco use 04/09/2015 Last Documented On 8 1:16PM ; [facility] Smoking Status Unknown Procedures and Surgical History Includes: Procedures from this encounter Procedures Code Diagnosis Performing Provider Service L ocation Service Date Clinical summary provided to patient Last Documented On 8 1:43PM ; [facility] cervical Pap smear 51085 Last Documented On 8 1:43PM ; [facility] Surgical History Last Updated Previous colposcopy she thinks years ago with TCK 04/05/2017 Last Documented On 8 2:06PM ; [facility] History of tubal ligation 04/05/2017 Last Documented On 8 2:06PM ; [facility] Dilation + Curettage 02/16/2011 Last Documented On 8 1:16PM ; [facility] History of appendectomy 02/16/2011 Last Documented On 8 1:16PM ; [facility] History of Loop electrode excision of ce rvix (LEEP) 402/16/2011 Last Documented On 8 1:16PM ; [facility] Medical History Includes: Medical History addressed during this encounter Description Last Updated A recent methicillin-resista nt Staphylococcus aureus infection : post section in 2015; 04/05/2017 Last Documented On 8 2:06PM ; [facility] section 10/25/2015 Emergency c/s TCK 04/05/2017 Last Documented On 8 2:06PM ; [facility] 6 04/05/2017 Last Documented On 8 2:06PM ; [facility] Para 2 04/05/2017 Last Documented On 8 2:06PM ; [facility] LMP: 03/18/2017 04/05/2017 Last Documented On 8 2:06PM ; [facility] Last pap smear date 03/02/2016 8 Last Documented On 8 2:06PM ; [facility] PRIMARY CARE PROVIDER : jada jacinto NP 03/02/2016 Last Documented On 8 1:16PM ; [facility] Status post tubal ligation 02/10/2016 Last Documented On 8 1:16PM ; [facility] Not using contraception has signed BTL 0 12/12/2015 Last Documented On 8 1:16PM ; [facility] Sexually active 12/12/2015 Last Documented On 8 1:16PM ; [facility] History of Pap smear done 10/12/2014 09/0 09/2015 Last Documented On 8 1:16PM ; [facility] History of Abnormal Pap Smear LEEP cone 06/20/2008: SHILOH I 04/09/2015 Last Documented On 8 1:16PM ; [facility] History of depression 10 y ol d, meds 14-20 y old; with post depression: zoloft, lexapro 04/09/2015 Last Documented On 8 1:16PM ; [facility] Result: normal GC/CT CULTURES NEGATIVE 0 06/18/2011 Last Documented On 8 1:16PM ; [facility] Vaginal delivery once 02/16/2011 Last Documented On 8 1:16PM ; [facility] History of cervical dysplasia 02/16/2011 Last Documented On 8 1:54PM ; [facility] History of urinary tract infection 02/16 Last Documented On 8 1:54PM ; [facility] Aborta 4 02/16/2011 Last Documented On 8 1:16PM ; [facility] Family History Includes: Family History addressed during this encounter Description Last Updated First child named 10/12/2006 vaginal TCK 04/05/2017 Last Documented On 8 2:06PM ; [facility] Second child named 10/25/15 TCK emergency c/s 04/05/2017 Last Documented On 8 2:06PM ; [facility] mom with skin cancer 04/05/2017 Last Documented On 8 2:06PM ; [facility] Family history of diabetes mellitus FAMI LY HX OF 10/12/2014 Last Documented On 8 1:16PM ; [facility] Family history of heart disease FAMILY H X OF 10/12/2014 Last Documented On 8 1:16PM ; [facility] Family history of hypercholesterolemia F AMILY HX OF 10/12/2014 Last Documented On 8 1:16PM ; [facility] Family history of hypertension FAMILY HX OF 10/12/2014 Last Documented On 8 1:16PM ; [facility] Family history of malignant neoplasm of the large intestine paternal GRANDFATHER 10/12/2014 Last Documented On 8 1:16PM ; [facility] Review of Systems Includes: Review [...] Resolved Last Documented On 04/09/2015 9:39AM ; [facility] Note: THROW-UP AND PASS OUT Encounters Encounter Provider Location Date Check-In Time Check-Out Time Diagnosis EMERGENCY VETERINARIAN EXAM ULISES KIDD MD [facility] ESTHETICS INSTRUCTOR 8 1:13PM 2:15PM Breast Fibrocystic Disease,Normal Female Exam Clinical Notes Includes: Clinical Notes from this encounter No Clinical Notes Recorded
--- OUTSIDE RECORDS SUMMARY | 2024-04-13 14:18 | XMS_ITS | Clinical Summary ---
Author Organization [facility] Address [address] [place] [address] Phone Care Team Providers Care Framing Consultant Name Role Phone Unavailable Unavailable Unavailable Reason for Visit and Chief Complaint EMT/DISPATCHER EXAM Problems Includes: Problems addressed during this encounter and other active Problems All Visits Onset Date Resolved Date Provider Condition S tatus Depression 11/20/2015 ULISES KIDD MD Active Last Documented On 11/20/2015 1:24PM ; [facility] Note: Unchanged Gestational edema, third trimester 08/27/2015 ULISES KIDD MD Active Last Documented On 08/27/2015 3:49PM ; [facility] Note: Unchanged Maternal care for excess growth, third tri, fetus 1 08/27/2015 ULISES KIDD MD Active Last Documented On 08/27/2015 3:49PM ; [facility] Note: Unchanged Encounter for suprvsn of normal , third trimester 08/27/2015 ULISES KIDD MD Active Last Documented On 08/27/2015 3:49PM ; [facility] Note: Unchanged 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 RUDY COOPER RN SIMEON BC Active Last Documented On 3 1:54PM ; [facility] History of Cervical Dysplasia 12/27/2012 RUDY COOPER RN Cristy P BC Active Last Documented On 12/27/2012 2:21PM ; [facility] Note: Unchanged History of Urinary Tract Infection 12/27/2012 RUDY COOPER RN Cristy P BC Active Last Documented On 12/27/2012 2:21PM ; [facility] Note: Unchanged Smoking [...] 04/05/2017 2:06PM By ULISES KIDD MD ; [facility] TiZANidine HCl 4MG Oral Tablet 04/05/2017 Provider: Diagnosis: Last Documented On 8 1:25PM By ASH MORALES Eyal ; [facility] Diclofenac Sodium 75MG Oral Tablet, enteric coated Provider: Diagnosis: Last Documented On 8 1:25PM By ASH MORALES Eyal ; [facility] Stool Softener 100MG Oral Capsule, conventional 2017 Provider: Diagnosis: Last Documented On 8 1:27PM By ASH MORALES Eyal ; [facility] Tylenol with Codeine #4 300-60MG Oral Tablet 8 Provider: Diagnosis: Last Documented On 8 1:28PM By ASH MORALES Eyal ; [facility] Sertraline HCl 50 MG Tablet 03/02/2016 Provider: ULISES KIDD MD Diagnosis: Mental and behav rl disorders assoc with the puerperium, NEC One tablet daily Last Documented On 03/02/2016 4:47PM By ULISES KIDD MD ; [facility] Formula 27-1 MG Tablet 04/09/2015 Provider: ULISES KIDD MD Diagnosis: Encounter for robrets prvsn of normal , first trimester One tablet daily generic pnv with 1 mg folic acid, may substitute as needed to fill Last Documented On 04/09/2015 10:20AM By ULISES KIDD MD ; [facility] Medications Administered Includes: Administered Medications from [...] Resolved Last Documented On 04/09/2015 9:39AM ; [facility] Note: THROW-UP AND PASS OUT Clinical Notes Includes: Clinical Notes from this encounter No Clinical Notes Recorded
--- OUTSIDE RECORDS SUMMARY | 2024-04-13 14:18 | XMS_ITS | Clinical Summary ---
Author Organization [facility] Address [address] [place] [address] Phone Care Team Providers Care Internal Affairs Commander Name Role Phone Unavailable Unavailable Unavailable Reason for Visit and Chief Complaint * PHONE CALL Problems Includes: Problems addressed during this encounter and other active Problems All Visits Onset Date Resolved Date Provider Condition S tatus Depression 11/20/2015 ULISES KIDD MD Active Last Documented On 11/20/2015 1:24PM ; [facility] Note: Unchanged Gestational edema, third trimester 08/27/2015 ULISES KIDD MD Active Last Documented On 08/27/2015 3:49PM ; [facility] Note: Unchanged Maternal care for excess growth, third tri, fetus 1 08/27/2015 ULISES KIDD MD Active Last Documented On 08/27/2015 3:49PM ; [facility] Note: Unchanged Encounter for suprvsn of normal , third trimester 08/27/2015 ULISES KIDD MD Active Last Documented On 08/27/2015 3:49PM ; [facility] Note: Unchanged 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 RUDY COOPER RN SIMEON Active Last Documented On 3 1:54PM ; [facility] History of Cervical Dysplasia 12/27/2012 RUDY COOPER RN Cristy P BC Active Last Documented On 12/27/2012 2:21PM ; [facility] Note: Unchanged History of Urinary Tract Infection 12/27/2012 RUDY COOPER RN Cristy P BC Active Last Documented On 12/27/2012 2:21PM ; [facility] Note: Unchanged Smoking [...] 04/05/2017 2:06PM By ULISES KIDD MD ; [facility] TiZANidine HCl 4MG Oral Tablet 04/05/2017 Provider: Diagnosis: Last Documented On 8 1:25PM By ASH MORALES Eyal ; [facility] Diclofenac Sodium 75MG Oral Tablet, enteric coated Provider: Diagnosis: Last Documented On 8 1:25PM By ASH MORALES Eyal ; [facility] Stool Softener 100MG Oral Capsule, conventional 2017 Provider: Diagnosis: Last Documented On 8 1:27PM By ASH MORALES Eyal ; [facility] Tylenol with Codeine #4 300-60MG Oral Tablet 8 Provider: Diagnosis: Last Documented On 8 1:28PM By ASH MORALES Eyal ; [facility] Sertraline HCl 50 MG Tablet 03/02/2016 Provider: ULISES KIDD MD Diagnosis: Mental and behav rl disorders assoc with the puerperium, NEC One tablet daily Last Documented On 03/02/2016 4:47PM By ULISES KIDD MD ; [facility] Formula 27-1 MG Tablet 04/09/2015 Provider: ULISES KIDD MD Diagnosis: Encounter for roberts prvsn of normal , first trimester One tablet daily generic pnv with 1 mg folic acid, may substitute as needed to fill Last Documented On 04/09/2015 10:20AM By ULISES KIDD MD ; [facility] Medications Administered Includes: Administered Medications from [...] Resolved Last Documented On 04/09/2015 9:39AM ; [facility] Note: THROW-UP AND PASS OUT Encounters Encounter Provider Location Date Check-In Time Check-Out Time Diagnosis * PHONE CALL ULISES KIDD MD 01/11/2017 3:10PM 11:59PM Clinical Notes Includes: Clinical Notes from this encounter No Clinical Notes Recorded
== END 2024-04-10 15:34 | disposition home or self-care (01) ==
PROVIDERS: Emergency Provider Nurse Practitioner; PCP Nurse Practitioner Family
DX: B34.9 Viral infection, unspecified (principal); F17.210 Nicotine dependence, cigarettes, uncomplicated
CPT/HCPCS: 99211; G0463

== ENCOUNTER 2024-05-16 08:48 | Emergency (ER) | payer OTHER, SELFPAY ==
[2024-05-16 09:00] VITALS: BP 106/59; PULSE 85; RESP 18; TEMP 36.9; O2SAT 99
--- OUTSIDE RECORDS SUMMARY | 2024-05-16 09:19 | XMS_ITS | Clinical Summary ---
Author Organization [facility] Address [address] [place] [address] Phone Care Team Providers Care Geographic Information Systems Analyst Name Role Phone Jose Meadows MD Primary Care Provider [phone] Allergies No known active allergies Medications Vit-Fe [...] 80 11/18/2023 10:39 AM CDT Temperature 36.7 C (98 F) 11/18/2023 8:54 AM CDT Respiratory Rate 17 [...] 10/0 03/2019, 03/08/2019, 02/18/2016 SARS-COV-2 Immunization ( season) 2023 Respiratory Syncytial Virus (RSV) Immunization (Adult) (1 - 1-dose 75+ series) 2062 DTaP/Tdap/Td Immunization Discontinued 10/27/2015 TdaP Immunization Completed 10/27/2015 Meningococcal Immunization (ACWY) Aged Out No longer eligible based on patient's age to complete this topic Rotavirus Immunization Aged Out No lo nger eligible based on patient's age to complete this topic Insurance [facility] Advance Directives * Full Code (Latest [...] measures to stabilize the patient. Care Teams Geographic Information Systems Analyst Relationship Specialty Start Date End Date Jose Meadows MD [address] [place] [address] PCP - General Internal Medicine 06/13/15
--- OUTSIDE RECORDS SUMMARY | 2024-05-16 09:19 | XMS_ITS | Clinical Summary ---
Author Organization [facility] Address [address] [place] [address] Care Team Providers Care Bakery Clerk Name Role Phone Lorin Carpenter NP Primary Care Provider Allergies No known active allergies Medications HYDROcodone-acet aminophen (NORCO) 5-325 mg per tabletIndication s:Pain Take 1 tablet by mouth every 6 (six) hours as needed for pain for up to 10 doses 10 tablet 02/02/2023 Active Immunizations Immunization Administration Dates Next Due Tdap 10/27/2015 Social [...] on file Legal Sex Female 7:43 PM DIRECTOR OF PROGRAM MANAGEMENT Gender Identity Not on file Sexual Orientation Not on file Last Filed Vital Signs Vital Sign Reading Time Taken Comments Blood Pressure 127/74 02/02/2023 1:24 PM DIRECTOR OF PROGRAM MANAGEMENT Pulse 81 02/02/2023 1:24 PM DIRECTOR OF PROGRAM MANAGEMENT Temperature 37.5 C (99.5 F) 02/02/2023 1:24 PM DIRECTOR OF PROGRAM MANAGEMENT Respiratory Rate 18 02/02/2023 1:24 PM DIRECTOR OF PROGRAM MANAGEMENT Oxygen Saturation 100% 02/02/2023 1:24 PM DIRECTOR OF PROGRAM MANAGEMENT Inhaled Oxygen Concentration - - Weight 73.9 kg (163 lb) 02/02/2023 1:24 PM DIRECTOR OF PROGRAM MANAGEMENT Height - - Body Mass Index - - Plan of Treatment Health Maintenance Due Date Last Done Comments Cervical Cancer Screening 1987 Depression Screening 1987 Hepatitis C Screening 1987 Varicella Vaccines (1 of 2 - 13+ 2-dose series) 2000 Hepatitis B Screening 2005 Regular Well Visit/Exam 18-64 2005 Influenza Vaccine (#1) 2023 , 03/08/2019, 02/18/2016 DTaP/Tdap/Td Vaccine (6 - Td or Tdap) 10/26/2025 10/27/2015, 09/29/1989, 11/30/1988, Additional history exists HPV Vaccines Aged Out No longer eligi ble based on patient's age to complete this topic Pneumococcal vaccine <65 Aged Out No longer eligible based on patient's age to complete this topic Insurance [facility] Care Teams Bakery Clerk Relationship Specialty Start Date End Date Lorin Carpenter NP [address] [place] [address] [place] [id number] PCP - General Nurse Practitioner 02/02/23
--- OUTSIDE RECORDS SUMMARY | 2024-05-16 09:19 | XMS_ITS ---
Care Plan - [facility] Created on: May 16, 2024 GISSELL DOMINGO : 1985 Sex: Female Author Organization [facility] Address [address] [place] [address] Phone Care Team Providers Care Licensed Loan Officer Name Role Phone Unavailable Unavailable Unavailable
--- OUTSIDE RECORDS SUMMARY | 2024-05-16 09:19 | XMS_ITS | Clinical Summary ---
Author Organization [facility] Address [address] [place] [address] Phone Care Team Providers Care Supply Chain Technician Name Role Phone Unavailable Unavailable Unavailable Reason [...] ed Last Documented On 05/27/2018 11:02AM ; [facility] Note: was Closed. History of Abnormal Pap Smear 04/09/2015 Unknown ULISES KIDD MD Resolved Last Documented On 05/27/2018 11:02AM ; [facility] Note: was Closed. History of Depression 04/09/2015 Unknown ULISES KIDD MD Resolved Last Documented On 05/27/2018 11:02AM ; [facility] Note: was Closed. Tobacco Use 04/09/2015 Unknown ULISES KIDD MD [facility] ed Last Documented On 05/27/2018 11:02AM ; [facility] Note: was Closed. History of Cervical Dysplasia 12/27/2012 RUDY COOPER RN SIMEON Active Last Documented On 12/27/2012 2:21PM ; [facility] Note: Unchanged History of Urinary Tract Infection 12/27/2012 RUDY COOPER RN SIMEON Active Last Documented On 12/27/2012 2:21PM ; [facility] Note: Unchanged Smoking Cigarettes 12/27/2012 RUDY GARCIA RN [facility] Active Last Documented On 12/27/2012 2:21PM ; [facility] Note: Unchanged - 1 PACK A DAY FOR TEN Y EARS Past Visits Onset Date Resolved Date Provider Condition Status Depression 11/20/2015 ULISES KIDD MD Active Last Documented On 11/20/2015 1:24PM ; 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 Patient to call the office in the meantime if she has other problems or questions. - Last Documented On 04/05/2017 2:06PM ; [facility] Instructions to patient Instructions for patient : B reast Self Exam discussed and technique reviewed Last Documented On 8 1:43PM ; [facility] Assessments Includes: Assessments from this encounter Findings - Fibrocystic disease of breast - Last Documented On 04/05/2017 2:06PM ; [facility] - NORMAL FEMALE EXAM - Last Documented On 04/05/2017 2:06PM ; [facility] Instructions Includes: Instructions from this encounter Instructions to patient Instructions for patient : B reast Self Exam discussed and technique reviewed Last Documented On 8 1:43PM ; [facility] Medical Equipment - Implanted Devices Includes: Current Devices No Medical Equipment Recorded Medications Includes: Medications discussed during this encounter and other current Medications Discontinued / Stopped on this date on 01/11/2017 Bactrim DS 800-160MG Oral Tablet Provider : Diagnosis: Last Documented On 8 1:25PM By ASH YOO ; [facility] Naproxen 500 MG OR TABS Provider: Diagnosis: Last Documented On 8 1:25PM By ASH YOO ; [facility] New / Renewed during this visit ULISES KIDD MD on 04/05/2017 Acyclovir 400MG Oral Tablet Provider: ULISES KIDD MD 30 day supply: 60 tablet, 2 refills Diagnosis: Si tabs 2 x per day x 5 days prn outbreaks. Pharmacy: [facility], [id number] - Last Documented On 04/05/2017 2:06PM By ULISES KIDD MD ; [facility] Current Medications (continue as prescribed) TiZANidine HCl 4MG Oral Tablet 04/05/2017 Provider: Diagnosis: Last Documented On 8 1:25PM By ASH YOO ; [facility] Diclofenac Sodium 75MG Oral Tablet, enteric coated Provider: Diagnosis: Last Documented On 8 1:25PM By ASH YOO ; [facility] Stool Softener 100MG Oral Capsule, conventional 2017 Provider: Diagnosis: Last Documented On 8 1:27PM By ASH YOO ; [facility] Tylenol with Codeine #4 300-60MG Oral Tablet 8 Provider: Diagnosis: Last Documented On 8 1:28PM By ASH YOO ; [facility] Sertraline HCl 50 MG Tablet 03/02/2016 Provider: ULISES KIDD MD Diagnosis: Mental and behav rl disorders assoc with the puerperium, NEC One tablet daily Last Documented On 03/02/2016 4:47PM By ULISES KIDD MD ; [facility] Formula 27-1 MG Tablet 04/09/2015 Provider: ULISES KIDD MD Diagnosis: Encounter for roberts prvsn of normal , first trimester One tablet daily generic pnv with 1 mg folic acid, may substitute as needed to fill Last Documented On 04/09/2015 10:20AM By ULISES KIDD MD ; [facility] Past Medications on file Premium Condoms Lubricated Miscellaneous 12/12/2015 - 01/11/2016 Provider: URDY COOPER RN NP Diagnosis: Encounter for in itial prescription of other contraceptives as directed USE DIRECTED Last Documented On 6 1:53PM By RUDY WATERS ; [facility] Sulfamethoxazole-Trimethopri m 800-160 MG Tablet 12/03/2015 - 12/13/2015 Provider: RUDY IRIZARRY Diagnosis: Local infection of the skin and subcutaneous tissue, unsp One tablet twice a day ONE TAB 2 TIMES A DAY WIT H FOOD Last Documented On 6 9:26AM By RUDY WATERS ; [facility] Ibuprofen 600 MG Tablet 11/27/2015 - 12/02/2015 Provider: RUDY IRIZARRY Diagnosis: Local infection of the skin and subcutaneous tissue, unsp 1 every 4 - 6 hours as neede d atke as directed w/food Last Documented On 6 2:51PM By URDY WATERS ; [facility] Fluconazole 150 MG Tablet 11/27/2015 - 11/29/2015 Provider: RUDY CLARK Diagnosis: Local infection of the skin and subcutaneous tissue, unsp 1 daily Pt. is to take 1 day 4 of antibiotics and 1 tablet day 7 Last Documented On 6 2:51PM By RUDY WATERS ; [facility] Cephalexin 500 MG Capsule, conventional 11/27/2015 - 12/04/2015 Provider: RUDY IRIZARRY Diagnosis: Local infection of the skin and subcutaneous tissue, unsp One tablet four times a day TAKE DIRECTED W/FOOD Last Documented On 6 2:51PM By RUDY WATERS ; [facility] Medications Administered Includes: Administered Medications from this encounter No Administered Medications Recorded Vital Signs Includes: Vital Signs from this encounter Vital Name 04/05/2017 01:17P Blood Pressure Sitting (mmHg) 110/80 Height (in) 65.5 Weight (lb) 171.25 Body Mass Index (kg/m2) 28.1 Body Surface Area (m2) 1.9 Last Documented: On 04/05/2017 1:25PM ; [facility] Results Includes: Results discussed during this encounter [...] 04/05/2017 Last Documented On 8 2:06PM ; [facility] The first insertion of an IUD was: was o n 10/16/2009: removed 10/12/2014; 04/05/2017 Last Documented On 8 2:06PM ; [facility] Alcohol use once a month sometimes 04/05 Last Documented On 8 2:06PM ; [facility] Marital history Engaged lives with lilia e for years 04/05/2017 Last Documented On 8 2:06PM ; [facility] Not using drugs 04/05/2017 Last Documented On 8 2:06PM ; [facility] Sexually active with 1 partners in the l ast year 02/10/2016 Last Documented On 8 1:16PM ; [facility] Education history 12/12/2015 Last Documented On 8 1:16PM ; [facility] Not exercising regularly 12/12/2015 Last Documented On 8 1:16PM ; [facility] Personal history 12/12/2015 Last Documented On 8 1:16PM ; [facility] Sexually active 12/12/2015 Last Documented On 8 1:16PM ; [facility] Sexually active 5 weeks sperm acide 12/12/2015 Last Documented On 8 1:16PM ; [facility] Tobacco use 04/09/2015 Last Documented On 8 1:16PM ; [facility] Smoking Status Unknown Procedures and Surgical History Includes: Procedures from this encounter Procedures Code Diagnosis Performing Provider Service L ocation Service Date Clinical summary provided to patient Last Documented On 8 1:43PM ; [facility] cervical Pap smear 68807 Last Documented On 8 1:43PM ; [facility] Surgical History Last Updated Previous colposcopy she thinks years ago with TCK 04/05/2017 Last Documented On 8 2:06PM ; [facility] History of tubal ligation 04/05/2017 Last Documented On 8 2:06PM ; [facility] Dilation + Curettage 02/16/2011 Last Documented On 8 1:16PM ; [facility] History of appendectomy 02/16/2011 Last Documented On 8 1:16PM ; [facility] History of Loop electrode excision of ce rvix (LEEP) 402/16/2011 Last Documented On 8 1:16PM ; [facility] Medical History Includes: Medical History addressed during this encounter Description Last Updated A recent methicillin-resista nt Staphylococcus aureus infection : post section in 2015; 04/05/2017 Last Documented On 8 2:06PM ; [facility] section 10/25/2015 Emergency c/s TCK 04/05/2017 Last Documented On 8 2:06PM ; [facility] 6 04/05/2017 Last Documented On 8 2:06PM ; [facility] Para 2 04/05/2017 Last Documented On 8 2:06PM ; [facility] LMP: 03/18/2017 04/05/2017 Last Documented On 8 2:06PM ; [facility] Last pap smear date 03/02/2016 8 Last Documented On 8 2:06PM ; [facility] PRIMARY CARE PROVIDER : jada jacinto NP 03/02/2016 Last Documented On 8 1:16PM ; [facility] Status post tubal ligation 02/10/2016 Last Documented On 8 1:16PM ; [facility] Not using contraception has signed BTL 0 12/12/2015 Last Documented On 8 1:16PM ; [facility] Sexually active 12/12/2015 Last Documented On 8 1:16PM ; [facility] History of Pap smear done 10/12/2014 09/0 09/2015 Last Documented On 8 1:16PM ; [facility] History of Abnormal Pap Smear LEEP cone 06/20/2008: SHILOH I 04/09/2015 Last Documented On 8 1:16PM ; [facility] History of depression 10 y ol d, meds 14-20 y old; with post depression: zoloft, lexapro 04/09/2015 Last Documented On 8 1:16PM ; [facility] Result: normal GC/CT CULTURES NEGATIVE 0 06/18/2011 Last Documented On 8 1:16PM ; [facility] Vaginal delivery once 02/16/2011 Last Documented On 8 1:16PM ; [facility] History of cervical dysplasia 02/16/2011 Last Documented On 8 1:54PM ; [facility] History of urinary tract infection 02/16 Last Documented On 8 1:54PM ; [facility] Aborta 4 02/16/2011 Last Documented On 8 1:16PM ; [facility] Family History Includes: Family History addressed during this encounter Description Last Updated First child named 10/12/2006 vaginal TCK 04/05/2017 Last Documented On 8 2:06PM ; [facility] Second child named 10/25/15 TCK emergency c/s 04/05/2017 Last Documented On 8 2:06PM ; [facility] mom with skin cancer 04/05/2017 Last Documented On 8 2:06PM ; [facility] Family history of diabetes mellitus FAMI LY HX OF 10/12/2014 Last Documented On 8 1:16PM ; [facility] Family history of heart disease FAMILY H X OF 10/12/2014 Last Documented On 8 1:16PM ; [facility] Family history of hypercholesterolemia F AMILY HX OF 10/12/2014 Last Documented On 8 1:16PM ; [facility] Family history of hypertension FAMILY HX OF 10/12/2014 Last Documented On 8 1:16PM ; [facility] Family history of malignant neoplasm of the large intestine paternal GRANDFATHER 10/12/2014 Last Documented On 8 1:16PM ; [facility] Review of Systems Includes: [...] Resolved Last Documented On 04/09/2015 9:39AM ; [facility] Note: THROW-UP AND PASS OUT Encounters Encounter Provider Location Date Check-In Time Check-Out Time Diagnosis SLUBBER TENDER EXAM ULISES KIDD MD [facility] OPTICS MANUFACTURING TECHNICIAN 8 1:13PM 2:15PM Breast Fibrocystic Disease,Normal Female Exam Clinical Notes Includes: Clinical Notes from this encounter No Clinical Notes Recorded
--- OUTSIDE RECORDS SUMMARY | 2024-05-16 09:19 | XMS_ITS | Clinical Summary ---
Author Organization [facility] Address [address] [place] [address] Phone Care Team Providers Care Stoneworking Sander Name Role Phone Unavailable Unavailable Unavailable Reason for Visit and Chief Complaint * PHONE CALL Problems Includes: Problems addressed during this encounter and other active Problems All Visits Onset Date Resolved Date Provider Condition S tatus Depression 11/20/2015 ULISES KIDD MD Active Last Documented On 11/20/2015 1:24PM ; [facility] Note: Unchanged Gestational edema, third trimester 08/27/2015 ULISES KIDD MD Active Last Documented On 08/27/2015 3:49PM ; [facility] Note: Unchanged Maternal care for excess growth, third tri, fetus 1 08/27/2015 ULISES KIDD MD Active Last Documented On 08/27/2015 3:49PM ; [facility] Note: Unchanged Encounter for suprvsn of normal , third trimester 08/27/2015 ULISES KIDD MD Active Last Documented On 08/27/2015 3:49PM ; [facility] Note: Unchanged 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 RUDY COOPER RN SIMEON Active Last Documented On 3 1:54PM ; [facility] History of Cervical Dysplasia 12/27/2012 RUDY COOPER RN Cristy P BC Active Last Documented On 12/27/2012 2:21PM ; [facility] Note: Unchanged History of Urinary Tract Infection 12/27/2012 RUDY COOPER RN Cristy P BC Active Last Documented On 12/27/2012 2:21PM ; [facility] Note: Unchanged Smoking Cigarettes [...] 04/05/2017 2:06PM By ULISES KIDD MD ; [facility] TiZANidine HCl 4MG Oral Tablet 04/05/2017 Provider: Diagnosis: Last Documented On 8 1:25PM By ASH MORALES Eyal ; [facility] Diclofenac Sodium 75MG Oral Tablet, enteric coated Provider: Diagnosis: Last Documented On 8 1:25PM By ASH MORALES Eyal ; [facility] Stool Softener 100MG Oral Capsule, conventional 2017 Provider: Diagnosis: Last Documented On 8 1:27PM By ASH MORALES Eyal ; [facility] Tylenol with Codeine #4 300-60MG Oral Tablet 8 Provider: Diagnosis: Last Documented On 8 1:28PM By ASH MORALES Eyal ; [facility] Sertraline HCl 50 MG Tablet 03/02/2016 Provider: ULISES KIDD MD Diagnosis: Mental and behav rl disorders assoc with the puerperium, NEC One tablet daily Last Documented On 03/02/2016 4:47PM By ULISES KIDD MD ; [facility] Formula 27-1 MG Tablet 04/09/2015 Provider: ULISES KIDD MD Diagnosis: Encounter for roberts prvsn of normal , first trimester One tablet daily generic pnv with 1 mg folic acid, may substitute as needed to fill Last Documented On 04/09/2015 10:20AM By ULISES KIDD MD ; [facility] Medications Administered Includes: Administered Medications from [...] Resolved Last Documented On 04/09/2015 9:39AM ; [facility] Note: THROW-UP AND PASS OUT Encounters Encounter Provider Location Date Check-In Time Check-Out Time Diagnosis * PHONE CALL ULISES KIDD MD 01/11/2017 3:10PM 11:59PM Clinical Notes Includes: Clinical Notes from this encounter No Clinical Notes Recorded
--- OUTSIDE RECORDS SUMMARY | 2024-05-16 09:19 | XMS_ITS | Referral Summary ---
Author Organization [facility] Address [address] [place] [id number] Care Team Providers Care Turf Farmer Name Role Phone JaydenSebastienLorinyudelka Ramos NP Primary Care Provider Allergies No known [...] on file Legal Sex Female 7:43 PM ORDER DISPATCHER CHIEF Gender Identity Not on file Sexual Orientation Not on file Last Filed Vital Signs Vital Sign Reading Time Taken Comments Blood Pressure 127/74 02/02/2023 1:24 PM ORDER DISPATCHER CHIEF Pulse 81 02/02/2023 1:24 PM ORDER DISPATCHER CHIEF Temperature 37.5 C (99.5 F) 02/02/2023 1:24 PM ORDER DISPATCHER CHIEF Respiratory Rate 18 02/02/2023 1:24 PM ORDER DISPATCHER CHIEF Oxygen Saturation 100% 02/02/2023 1:24 PM ORDER DISPATCHER CHIEF Inhaled Oxygen Concentration - - Weight 73.9 kg (163 lb) 02/02/2023 1:24 PM ORDER DISPATCHER CHIEF Height - - Body Mass Index - - Plan of Treatment Not on file Insurance [facility] [place] [address] Member Subscriber Plan / Payer (Ef fective 2023-Present) Name:Ashlyn Land Relation to Subscriber:Self Name:Ashlyn Land Payer ID:[id number] (NAIC) Group ID:Not on file Type:MEDICAID RISK OTHER Address: ATTN: CLAIMS DEPT [address] [place] [phone] Care Teams Turf Farmer Relationship Specialty Start Date End Date Lorin Carpenter NP [address] [place] [address] [place] [id number] PCP - General Nurse Practitioner 02/02/23
--- OUTSIDE RECORDS SUMMARY | 2024-05-16 09:20 | XMS_ITS | Patient Health Summary ---
Author Organization [facility] [employer] Address [facility] [place] [address] Care Team Providers Care Eeo Officer Name Role Phone Unavailable Primary Care Provider Unavailabl e Note from [facility],non-owned Affiliates and Associated Physician Practices is amultiple site organization consisting of ambulatory clinics and hospital sitesin [place], [place], [place] and [place]. This disclosure is being madepursuant to the Care Everywhere program and may not contain all information available regarding this patient. Last updated 17.[facility] [employer] Medications * Be aware that medications may [...] 78.5 kg (173 lb) 04/29/2017 12:56 PM CATERPILLAR TRACTOR OPERATOR Height 167.6 cm (5' 6 ) 04/29/2017 12:56 PM CATERPILLAR TRACTOR OPERATOR Body Mass Index 27.92 04/29/2017 12:56 PM CATERPILLAR TRACTOR OPERATOR Procedures * XR CERVICAL SPINE 2 OR 3VW(Performed 01/26/2017) Results * XR CERVICAL SPINE 2 OR 3VW (01/26/2017 10:12 AM CATERPILLAR TRACTOR OPERATOR) Anatomical Region Laterality Modality Spine Other Impressions 01/26/2017 10:27 AM CATERPILLAR TRACTOR OPERATOR IMPRESSION: No acute compression fracture or subluxation of the cervical spine. Report dictated by Luis Armando Maldonado MD (president college or university). I, Dr. CHAITANYA ROWE MD have personally reviewed and interpreted this examination/study. This report was electronically signed by CHAITANYA ROWE MD on 01/26/2017 10:27 AM . Narrative 01/26/2017 10:27 AM CATERPILLAR TRACTOR OPERATOR EXAMINATION: XR SPINE CERVICAL 2 VIEWS HISTORY: [...] Report dictated by Luis Armando Maldonado MD (president college or university). I, Dr. CHAITANYA ROWE MD have personally reviewed and interpreted thisexamination/study. This report was electronically signed by CHAITANYA ROWE MD on 01/26/201710:27 AM . Lorin Santos PA-C DIAGNOSTIC IMAG ING ORDERABLES
--- OUTSIDE RECORDS SUMMARY | 2024-05-16 09:20 | XMS_ITS | Clinical Summary ---
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 Problems Includes: Problems addressed during this encounter and other active Problems All Visits Onset Date Resolved Date Provider Condition S tatus Depression 11/20/2015 ULISES KIDD MD Active Last Documented On 11/20/2015 1:24PM ; [facility] Note: Unchanged Gestational edema, third trimester 08/27/2015 ULISES KIDD MD Active Last Documented On 08/27/2015 3:49PM ; [facility] Note: Unchanged Maternal care for excess growth, third tri, fetus 1 08/27/2015 ULISES KIDD MD Active Last Documented On 08/27/2015 3:49PM ; [facility] Note: Unchanged Encounter for suprvsn of normal , third trimester 08/27/2015 ULISES KIDD MD Active Last Documented On 08/27/2015 3:49PM ; [facility] Note: Unchanged 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 RUDY COOPER RN SIMEON BC Active Last Documented On 3 1:54PM ; [facility] History of Cervical Dysplasia 12/27/2012 RUDY COOPER RN Cristy P BC Active Last Documented On 12/27/2012 2:21PM ; [facility] Note: Unchanged History of Urinary Tract Infection 12/27/2012 RUDY COOPER RN Cristy P BC Active Last Documented On 12/27/2012 2:21PM ; [facility] Note: Unchanged Smoking Cigarettes 12/27/2012 [...] 04/05/2017 2:06PM By ULISES KIDD MD ; [facility] TiZANidine HCl 4MG Oral Tablet 04/05/2017 Provider: Diagnosis: Last Documented On 8 1:25PM By ASH MORALES Eyal ; [facility] Diclofenac Sodium 75MG Oral Tablet, enteric coated Provider: Diagnosis: Last Documented On 8 1:25PM By ASH MORALES Eyal ; [facility] Stool Softener 100MG Oral Capsule, conventional 2017 Provider: Diagnosis: Last Documented On 8 1:27PM By ASH MORALES Eyal ; [facility] Tylenol with Codeine #4 300-60MG Oral Tablet 8 Provider: Diagnosis: Last Documented On 8 1:28PM By ASH MORALES Eyal ; [facility] Sertraline HCl 50 MG Tablet 03/02/2016 Provider: ULISES KIDD MD Diagnosis: Mental and behav rl disorders assoc with the puerperium, NEC One tablet daily Last Documented On 03/02/2016 4:47PM By ULISES KIDD MD ; [facility] Formula 27-1 MG Tablet 04/09/2015 Provider: ULISES KIDD MD Diagnosis: Encounter for roberts prvsn of normal , first trimester One tablet daily generic pnv with 1 mg folic acid, may substitute as needed to fill Last Documented On 04/09/2015 10:20AM By ULISES KIDD MD ; [facility] Medications Administered Includes: Administered Medications [...] Resolved Last Documented On 04/09/2015 9:39AM ; [facility] Note: THROW-UP AND PASS OUT Clinical Notes Includes: Clinical Notes from this encounter No Clinical Notes Recorded
--- OUTSIDE RECORDS SUMMARY | 2024-05-16 09:20 | XMS_ITS | Clinical Summary ---
Author Organization 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 Problems Includes: Problems addressed during this encounter and other active Problems All Visits Onset Date Resolved Date Provider Condition S tatus Depression 11/20/2015 ULISES KIDD MD Active Last Documented On 11/20/2015 1:24PM ; [facility] Note: Unchanged Gestational edema, third trimester 08/27/2015 ULISES KIDD MD Active Last Documented On 08/27/2015 3:49PM ; [facility] Note: Unchanged Maternal care for excess growth, third tri, fetus 1 08/27/2015 ULISES KIDD MD Active Last Documented On 08/27/2015 3:49PM ; [facility] Note: Unchanged Encounter for suprvsn of normal , third trimester 08/27/2015 ULISES KIDD MD Active Last Documented On 08/27/2015 3:49PM ; [facility] Note: Unchanged 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 RUDY COOPER RN SIMEON BC Active Last Documented On 3 1:54PM ; [facility] History of Cervical Dysplasia 12/27/2012 RUDY COOPER RN Cristy P BC Active Last Documented On 12/27/2012 2:21PM ; [facility] Note: Unchanged History of Urinary Tract Infection 12/27/2012 RUDY COOPER RN Cristy P BC Active Last Documented On 12/27/2012 2:21PM ; [facility] Note: Unchanged Smoking Cigarettes 12/27/2012 [...] 04/05/2017 2:06PM By ULISES KIDD MD ; [facility] TiZANidine HCl 4MG Oral Tablet 04/05/2017 Provider: Diagnosis: Last Documented On 8 1:25PM By ASH MORALES Eyal ; [facility] Diclofenac Sodium 75MG Oral Tablet, enteric coated Provider: Diagnosis: Last Documented On 8 1:25PM By ASH MORALES Eyal ; [facility] Stool Softener 100MG Oral Capsule, conventional 2017 Provider: Diagnosis: Last Documented On 8 1:27PM By ASH MORALES Eyal ; [facility] Tylenol with Codeine #4 300-60MG Oral Tablet 8 Provider: Diagnosis: Last Documented On 8 1:28PM By ASH MORALES Eyal ; [facility] Sertraline HCl 50 MG Tablet 03/02/2016 Provider: ULISES KIDD MD Diagnosis: Mental and behav rl disorders assoc with the puerperium, NEC One tablet daily Last Documented On 03/02/2016 4:47PM By ULISES KIDD MD ; [facility] Formula 27-1 MG Tablet 04/09/2015 Provider: ULISES KIDD MD Diagnosis: Encounter for roberts prvsn of normal , first trimester One tablet daily generic pnv with 1 mg folic acid, may substitute as needed to fill Last Documented On 04/09/2015 10:20AM By ULISES KIDD MD ; [facility] Medications Administered Includes: Administered [...] Resolved Last Documented On 04/09/2015 9:39AM ; [facility] Note: THROW-UP AND PASS OUT Clinical Notes Includes: Clinical Notes from this encounter No Clinical Notes Recorded
--- OUTSIDE RECORDS SUMMARY | 2024-05-16 09:20 | XMS_ITS | Clinical Summary ---
Author Organization [facility] Address [address] [place] [address] [place] [address] Care Team Providers Care Health Information Managers Name Role Phone Unavailable Primary Care Provider Unavailabl e Source Comments [facility],non-owned Affiliates and Associated Physician Practices is amultiple site organization consisting of ambulatory clinics and hospital sitesin [place], [place], [place] and [place]. This disclosure is being madepursuant to the Care Everywhere program and may not contain all information available regarding this patient. Last updated 17.Infogram [facility] Medications * Be aware that medications may [...] 78.5 kg (173 lb) 04/29/2017 12:56 PM REMELT OPERATOR Height 167.6 cm (5' 6 ) 04/29/2017 12:56 PM REMELT OPERATOR Body Mass Index 27.92 04/29/2017 12:56 PM REMELT OPERATOR Plan of Treatment Health Maintenance Due Date [...]
--- OUTSIDE RECORDS SUMMARY | 2024-05-16 09:20 | XMS_ITS ---
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 Name Role Phone Unavailable Unavailable Unavailable Problems Includes: Active, inactive, and resolved Problems All Visits Onset Date Resolved Date Provider Condition S tatus Depression 11/20/2015 ULISES KIDD MD Active Last Documented On 11/20/2015 1:24PM ; [facility] Note: Unchanged Gestational edema, third trimester 08/27/2015 ULISES KIDD MD Active Last Documented On 08/27/2015 3:49PM ; [facility] Note: Unchanged Maternal care for excess growth, third tri, fetus 1 08/27/2015 ULISES KIDD MD Active Last Documented On 08/27/2015 3:49PM ; [facility] Note: Unchanged Encounter for suprvsn of normal , third trimester 08/27/2015 ULISES KIDD MD Active Last Documented On 08/27/2015 3:49PM ; [facility] Note: Unchanged Alcohol Use 04/09/2015 Unknown ULISES KIDD MD Resolved Last Documented On 05/27/2018 11:02AM ; [facility] Note: was Closed. Exposure To Contagious Viral Disease 04/09/2015 Unknown ULISES KIDD MD Resolved Last Documented On 05/27/2018 11:02AM ; [facility] Note: was Closed. History of Abnormal Pap Smear 04/09/2015 Unknown ULISES KIDD MD Resolved Last Documented On 05/27/2018 11:02AM ; [facility] Note: was Closed. History of Depression 04/09/2015 Unknown ULISES KIDD MD Resolved Last Documented On 05/27/2018 11:02AM ; [facility] Note: was Closed. Tobacco Use 04/09/2015 Unknown ULISES KIDD MD Resolved Last Documented On 05/27/2018 11:02AM ; [facility] Note: was Closed. Possible Varicella Susceptibility (No Prior History) 04/09/2015 Unknown RUDY COOPER RN NP Resolved Last Documented On 6 2:17PM ; [facility] Reported Previous Std 04/09/2015 Unknown ULISES KIDD MD Resolved Last Documented On 05/27/2018 11:02AM ; [facility] Note: was Closed. 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 OSEAS COOPER RN [facility] Active Last Documented On 3 1:54PM ; [facility] History of Cervical Dysplasia 12/27/2012 RUDY COOPER RN N P BC Active Last Documented On 12/27/2012 2:21PM ; [facility] Note: Unchanged History of Urinary Tract Infection 12/27/2012 RUDY COOPER RN N P BC Active Last Documented On 12/27/2012 2:21PM ; [facility] Note: Unchanged Smoking Cigarettes 12/27/2012 RUDY GARCIA RN [facility] Active Last Documented On 12/27/2012 2:21PM ; [facility] Note: Unchanged - 1 PACK A DAY FOR TEN Y EARS Plan of Treatment Findings Encounter Date Ordered Clinical summary pro vided to patient 1 WK CK-UP with RUDY COOPER RN [facility] 12/12/2015 Last Documented On 6 2:17PM ; [facility] Ordered Clinical summary pro vided to patient PROBLEM VISIT with RUDY COOPER RN [facility] 11/27/2015 Last Documented On 6 3:00PM ; [facility] Ordered Clinical summary pro vided to patient 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 RUDY COOPER RN SIMEON 10/12/2014 Last Documented On 5 11:32AM ; [facility] She will let us know if she has any other problems and present back in one year for [employer] NEW 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 ULISES KIDD MD 02/16/2011 Last Documented On 1 10:49PM ; [facility] Referrals To Diagnosis Dermatology JASON PATEL MD Acne, uns pecified Last Documented On 7 9:47AM ; [facility] Instructions to patient Instructions for patient : B reast Self Exam discussed and technique reviewed Last Documented On 8 1:43PM ; [facility] Instructions for patient : B reast Self Exam discussed and technique reviewed Last Documented On 5 11:09AM ; [facility] Use a condom during sexual i ntercourse Last Documented On 5 11:09AM ; [facility] Instructed to call if excess uche bleeding or abdominal/pelvic pain Last Documented On 5 11:09AM ; [facility] Recommend diet and exercise at least 30 min three times per week Last Documented On 5 11:09AM ; [facility] Instructions for patient : B reast Self Exam discussed and technique reviewed Last Documented On 3 2:14PM ; [facility] Use a condom during sexual i ntercourse Last Documented On 3 2:14PM ; [facility] Instructed to call if excess uche bleeding or abdominal/pelvic pain Last Documented On 3 2:14PM ; [facility] Recommend diet and exercise at least 30 min three times per week Last Documented On 3 2:14PM ; [facility] Recommend CBC, TSH, fasting glucose, fasting lipid panel if patient aged 25 or older Last Documented On 3 2:14PM ; [facility] Recommend preventative vacci nation including but not limited to influenza/flu vaccine, DTP, Rubella, Hepatitis B vaccination series Last Documented On 3 2:14PM ; [facility] Instructions for patient : B reast Self Exam discussed and technique reviewed Last Documented On 1 10:37PM ; [facility] Education and Decision Aids were provided during visit for: Discussed smoking and drug u se Last Documented On 5 11:09AM ; [facility] Patient education RE: randall rossi signals associated with hormonal contraceptive use including abdominal, chest, or leg pain, headaches or visual disturbances Last Documented On 5 11:09AM ; [facility] Patient Education: Daily junior cium and vitamin D Last Documented On 5 11:09AM ; [facility] control consent review ed and signed Last Documented On 5 11:09AM ; [facility] Discussed use of seat belts Last Documented On 3 2:14PM ; [facility] Discussed smoking and drug u se Last Documented On 3 2:14PM ; [facility] Discussed risk-taking behavi or Last Documented On 3 2:14PM ; [facility] Patient education RE: randall rossi signals associated with hormonal contraceptive use including abdominal, chest, or leg pain, headaches or visual disturbances Last Documented On 3 2:14PM ; [facility] Patient Education: Daily junior cium and vitamin D Last Documented On 3 2:14PM ; [facility] Pt initially wanted the IUD removed as [...] agreed Last Documented On 2 5:36PM ; [facility] Assessments Includes: Assessments for all patient encounters Findings Encounter Date Fibrocystic disease of breast 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 ULISES KIDD MD 04/05/2017 Last Documented On 8 2:06PM ; [facility] NORMAL FEMALE EXAM 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 ULISES KIDD MD 04/05/2017 Last Documented On 8 2:06PM ; [facility] POST OP VISIT POST OP VISIT with ULISES Donaldson MD 03/02/2016 Last Documented On 6 4:49PM ; [facility] depression POST OP VISIT with ULISES AKINS MD 03/02/2016 Last Documented On 6 4:49PM ; [facility] POST OP VISIT 2 WK CK-UP with ULISES Harley 02/10/2016 Last Documented On 6 4:24PM ; [facility] Methicillin resistant staphy lococcus aureus infection day 2 Bactrim POST OP VISIT with RUDY COOPER RN [facility] 12/05/2015 Last Documented On 6 3:30PM ; [facility] depression well c ontrolled w/current rx POST OP VISIT with RUDY COOPER RN [facility] 12/05/2015 Last Documented On 6 3:30PM ; [facility] Routine history and physical POST OP VISIT with RUDY COOPER RN [facility] 12/05/2015 Last Documented On 6 3:30PM ; [facility] Infections of skin and subcu taneous tissue PROBLEM VISIT with RUDY COOPER RN [facility] 11/27/2015 Last Documented On 6 3:00PM ; [facility] depression resolv ing per pt report w/Sertraline use PROBLEM VISIT with RUDY COOPER RN [facility] 11/27/2015 Last Documented On 6 3:00PM ; [facility] depression PROBLEM VISIT with ULISES AKINS MD 11/20/2015 Last Documented On 6 1:24PM ; [facility] POST OP VISIT POST OP VISIT with ULISES Donaldson MD 11/08/2015 Last Documented On 6 11:52AM ; [facility] Contraceptive management 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 RUDY GARCIA RN [facility] 10/12/2014 Last Documented On 5 11:32AM ; [facility] Risk: tobacco use 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 RUDY COOPER RN [facility] 10/12/2014 Last Documented On 5 11:32AM ; [facility] Routine gynecological exam 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 RUDY COOPER RN [facility] 10/12/2014 Last Documented On 5 11:32AM ; [facility] Contraceptive surveillance IUD INSITU AN NUAL ESCALATOR CONSTRUCTOR EXAM with RUDY COOPER RN [facility] 12/27/2012 Last Documented On 3 2:22PM ; [facility] Risk: tobacco use ANNUAL ESCALATOR CONSTRUCTOR EXAM with RUDY GARCIA RN [facility] 12/27/2012 Last Documented On 3 2:22PM ; [facility] Routine gynecological exam ANNUAL ESCALATOR CONSTRUCTOR EXAM with RUDY COOPER RN [facility] 12/27/2012 Last Documented On 3 2:22PM ; [facility] Dyspareunia -- resolved 2 WK CK-UP with ULISES MARTE MD 06/18/2011 Last Documented On 2 4:42PM ; [facility] Checking intrauterine device (IUD) PROBLEM VISIT with ULISES KIDD MD 06/04/2011 Last Documented On 2 5:37PM ; [facility] Dyspareunia PROBLEM VISIT with ULISES Donaldson MD 06/04/2011 Last Documented On 2 5:37PM ; [facility] Vaginal candidiasis PROBLEM VISIT with ULISES PALMER MD 06/04/2011 Last Documented On 2 5:37PM ; [facility] Breast fibrocystic disease NEW 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 ULISES KIDD MD 02/16/2011 Last Documented On 1 10:49PM ; [facility] Checking intrauterine device (IUD) NEW 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 ULISES KIDD MD 02/16/2011 Last Documented On 1 10:49PM ; [facility] NORMAL FEMALE EXAM NEW 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 ULISES JIMENEZ MD 02/16/2011 Last Documented On 1 10:49PM ; [facility] Instructions Includes: Instructions for all patient encounters Instructions to patient Instructions for patient : B reast Self Exam discussed and technique reviewed Last Documented On 8 1:43PM ; [facility] Instructions for patient : B reast Self Exam discussed and technique reviewed Last Documented On 5 11:09AM ; [facility] Use a condom during sexual i ntercourse Last Documented On 5 11:09AM ; [facility] Instructed to call if excess uche bleeding or abdominal/pelvic pain Last Documented On 5 11:09AM ; [facility] Recommend diet and exercise at least 30 min three times per week Last Documented On 5 11:09AM ; [facility] Instructions for patient : B reast Self Exam discussed and technique reviewed Last Documented On 3 2:14PM ; [facility] Use a condom during sexual i ntercourse Last Documented On 3 2:14PM ; [facility] Instructed to call if excess uche bleeding or abdominal/pelvic pain Last Documented On 3 2:14PM ; [facility] Recommend diet and exercise at least 30 min three times per week Last Documented On 3 2:14PM ; [facility] Recommend CBC, TSH, fasting glucose, fasting lipid panel if patient aged 25 or older Last Documented On 3 2:14PM ; [facility] Recommend preventative vacci nation including but not limited to influenza/flu vaccine, DTP, Rubella, Hepatitis B vaccination series Last Documented On 3 2:14PM ; [facility] Instructions for patient : B reast Self Exam discussed and technique reviewed Last Documented On 1 10:37PM ; [facility] Education and Decision Aids were provided during visit for: Discussed smoking and drug u se Last Documented On 5 11:09AM ; [facility] Patient education RE: susanjeremiah flo signals associated with hormonal contraceptive use including abdominal, chest, or leg pain, headaches or visual disturbances Last Documented On 5 11:09AM ; [facility] Patient Education: Daily junior cium and vitamin D Last Documented On 5 11:09AM ; [facility] control consent review ed and signed Last Documented On 5 11:09AM ; [facility] Discussed use of seat belts Last Documented On 3 2:14PM ; [facility] Discussed smoking and drug u se Last Documented On 3 2:14PM ; [facility] Discussed risk-taking behavi or Last Documented On 3 2:14PM ; [facility] Patient education RE: dorisrubén g signals associated with hormonal contraceptive use including abdominal, chest, or leg pain, headaches or visual disturbances Last Documented On 3 2:14PM ; [facility] Patient Education: Daily junior cium and vitamin D Last Documented On 3 2:14PM ; [facility] Pt initially wanted [...] agreed Last Documented On 2 5:36PM ; [facility] Medical Equipment - Implanted Devices Includes: Current [...] On 8 1:25PM By ASH YOO ; [facility] Stool [...] 4:47PM By ULISES KIDD MD ; [facility] Formula 27-1 MG Tablet 04/09/2015 Provider: ULISES KIDD MD Diagnosis: Encounter for roberts prvsn of normal , first trimester One tablet daily generic pnv with 1 mg folic acid, may substitute as needed to fill Last Documented On 04/09/2015 10:20AM By ULISES KIDD MD ; [facility] Past Medications on file Bactrim DS 800-160MG Oral Tablet 01/11/2017 - 04/05/19 18 Provider: Diagnosis: Last Documented On 8 1:25PM By ASH YOO ; [facility] Premium Condoms Lubricated Miscellaneous 12/12/2015 - 01/11/2016 Provider: RUDY CLARK Diagnosis: Encounter for in itial prescription of other contraceptives as directed USE DIRECTED Last Documented On 6 1:53PM By RUDY WATERS ; [facility] Sertraline HCl 50 MG Tablet 12/12/2015 - 03/02/2016 Provider: RUDY CLARK Diagnosis: Mental and behav rl disorders assoc with the puerperium, NEC One tablet daily Last Documented On 03/02/2016 4:46PM By ULISES KIDD MD ; [facility] Sertraline HCl 50 MG Tablet 12/05/2015 - 12/12/2015 Provider: RUDY CLARK Diagnosis: Mental and behav rl disorders assoc with the puerperium, NEC One tablet daily Last Documented On 6 1:55PM By RUDY WATERS ; [facility] Sulfamethoxazole-Trimethopri m 800-160 MG Tablet 12/03/2015 - 12/13/2015 Provider: RUDY CLARK Diagnosis: Local infection of the skin and subcutaneous tissue, unsp One tablet twice a day ONE TAB 2 TIMES A DAY WIT H FOOD Last Documented On 6 9:26AM By RUDY WATERS ; [facility] Ibuprofen 600 MG Tablet 11/27/2015 - 12/02/2015 Provider: RUDY CLARK Diagnosis: Local infection of the skin and subcutaneous tissue, unsp 1 every 4 - 6 hours as neede d atke as directed w/food Last Documented On 6 2:51PM By RUDY WATERS ; [facility] Fluconazole 150 MG Tablet 11/27/2015 - 11/29/2015 Provider: RUDY CLARK Diagnosis: Local infection of the skin and subcutaneous tissue, unsp 1 daily Pt. is to take 1 day 4 of antibiotics and 1 tablet day 7 Last Documented On 6 2:51PM By RUDY WATERS ; [facility] Cephalexin 500 MG Capsule, conventional 11/27/2015 - 12/04/2015 Provider: RUDY CLARK Diagnosis: Local infection of the skin and subcutaneous tissue, unsp One tablet four times a day TAKE DIRECTED W/FOOD Last Documented On 6 2:51PM By RUDY WATERS ; [facility] Sertraline HCl 50 MG Tablet 11/20/2015 - 12/05/2015 Provider: ULISES Harley Diagnosis: Mental and behav rl disorders assoc with the puerperium, NEC One tablet daily Last Documented On 6 2:09PM By RUDY WATERS ; [facility] Acyclovir 400 MG Tablet 09/10/2015 - 04/05/2017 Provider: ULISES Harley Diagnosis: Encounter for roberts prvsn of normal , third trimester One tablet twice a day Last Documented On 04/05/2017 2:05PM By ULISES KIDD MD ; [facility] NuvaRing 0.12-0.015 MG/24HR Ring 01/07/2015 - 01/28/2015 Provider: RUDY IRIZARRY Diagnosis: Encounter for ot h general cnsl and advice on contraception as directed INSERT 1 RING IN TO VAGINA FIRST WEDNESDAY NEXT MENSES X 3 WEEKS REMOVE X 1 WEEK THEN REPLACE WITH NEW Last Documented On 5 1:08PM By RUDY WATERS ; [facility] NuvaRing 0.12-0.015 MG/24HR Ring 01/07/2015 - 01/04/2015 Provider: RUDY IRIZARRY Diagnosis: Encounter for ot h general cnsl and advice on contraception as directed INSERT 1 RING IN TO VAGINA FIRST WEDNESDAY NEXT MENSES X 3 WEEKS REMOVE X 1 WEEK THEN REPLACE WITH NEW Last Documented On 5 11:05AM By RUDY WATERS ; [facility] Nitrofurantoin Macrocrystal 100 MG Capsule 10/23/2014 - 11/20/2015 Provider: RUDY IRIZARRY BC Diagnosis: URIN TRACT INFEC TION NOS One tablet twice a day USE DIRECTED W/FOOD Last Documented On 6 1:03PM By SHANDA GARCIA LPN ; [facility] NuvaRing 0.12-0.015 MG/24HR Ring 10/12/2014 - 01/04/2015 Provider: RUDY IRIZARRY BC Diagnosis: OTHER FAMILY CAPRICE NNING ADVICE NEC as directed INSERT 1 RING IN TO VAGINA FIRST WEDNESDAY NEXT MENSES X 3 WEEKS REMOVE X 1 WEEK THEN REPLACE WITH NEW Last Documented On 5 10:22AM By RUDY WATERS ; [facility] Diflucan 150 MG OR TABS 06/04/2011 - 11/20/2015 Provid er: ULISES KIDD MD Diagnosis: one tablet po, prn yeast infection Last Documented On 6 1:04PM By SHANDA GARCIA LPN ; [facility] Imitrex 25 MG OR TABS 02/16/2011 - 10/12/2014 Provider : Diagnosis: Last Documented On 5 11:31AM By RUDY WATERS ; [facility] Naproxen 500 MG OR TABS 02/16/2011 - 04/05/2017 Provid er: Diagnosis: Last Documented On 8 1:25PM By ASH YOO ; [facility] Mirena (52 MG) 20 MCG/24HR IU IUD 02/16/2011 - 015 Provider: Diagnosis: IMPLANTED Last Documented On 5 11:31AM By RUDY WATERS ; [facility] Medications Administered Includes: Administered Medications in patient's chart No Administered Medications Recorded Results Includes: Results from 05/16/2023 through 05/16/2024 No Results Recorded For Specified Dates History of Present Illness History of Present Illness not supported for this document type No History of Present Illness Recorded Social History Description Last Updated Cigarette smoking 1 pack(s)/day 1 PACK A DAY FOR 15 YEARS 04/05/2017 Last Documented On 8 2:06PM ; [facility] The first insertion of an IUD was: was o n 10/16/2009: removed 10/12/2014; 04/05/2017 Last Documented On 8 2:06PM ; [facility] Alcohol use once a month sometimes 04/05 Last Documented On 8 2:06PM ; [facility] Marital history Engaged lives with fianc e for years 04/05/2017 Last Documented On 8 2:06PM ; [facility] Not using drugs 04/05/2017 Last Documented On 8 2:06PM ; [facility] Sexually active with 1 partners in the l ast year 02/10/2016 Last Documented On 6 4:24PM ; [facility] Education history 12/12/2015 Last Documented On 6 2:17PM ; [facility] Not exercising regularly 12/12/2015 Last Documented On 6 2:17PM ; [facility] Personal history 12/12/2015 Last Documented On 6 2:17PM ; [facility] Sexually active 12/12/2015 Last Documented On 6 2:17PM ; [facility] Sexually active 5 weeks sperm acide 12/12/2015 Last Documented On 6 2:17PM ; [facility] Single 12/12/2015 Last Documented On 6 2:17PM ; [facility] Smoking status : Current everyday smoker 12/12/2015 Last Documented On 6 2:17PM ; [facility] Social history unchanged 12/12/2015 Last Documented On 6 2:17PM ; [facility] Tobacco use 04/09/2015 Last Documented On 6 10:41AM ; [facility] Procedures and Surgical History Surgical History Last Updated Previous colposcopy she thinks years ago with TCK 04/05/2017 Last Documented On 8 2:06PM ; [facility] History of tubal ligation 04/05/2017 Last Documented On 8 2:06PM ; [facility] Surgical history unchanged 10/12/2014 Last Documented On 5 11:32AM ; [facility] Dilation + Curettage 02/16/2011 Last Documented On 1 10:49PM ; [facility] History of appendectomy 02/16/2011 Last Documented On 1 10:49PM ; [facility] History of Loop electrode excision of ce rvix (LEEP) 06-20-08 02/16/2011 Last Documented On 1 10:49PM ; [facility] Medical History Includes: Medical History in patient's chart Description Last Updated A recent methicillin-resista nt Staphylococcus aureus infection : post section in 2016; 04/05/2017 Last Documented On 8 2:06PM ; [facility] section 10/25/2015 Emergency c/s TCK 04/05/2017 Last Documented On 8 2:06PM ; [facility] 6 04/05/2017 Last Documented On 8 2:06PM ; [facility] Para 2 04/05/2017 Last Documented On 8 2:06PM ; [facility] LMP: 03/18/2017 04/05/2017 Last Documented On 8 2:06PM ; [facility] Last pap smear date 03/02/2016 8 Last Documented On 8 2:06PM ; [facility] PRIMARY CARE PROVIDER : jada jacinto NP 03/02/2016 Last Documented On 6 4:49PM ; [facility] Status post tubal ligation 02/10/2016 Last Documented On 6 4:24PM ; [facility] Not using contraception has signed BTL 0 12/12/2015 Last Documented On 6 2:17PM ; [facility] Sexually active 12/12/2015 Last Documented On 6 2:17PM ; [facility] is bottle-feeding 11/27/2015 Last Documented On 6 3:00PM ; [facility] History of Pap smear done 10/12/2014 090 09/2015 Last Documented On 6 3:00PM ; [facility] History of Abnormal Pap Smear 04/09/2015 Last Documented On 6 10:21AM ; [facility] History of depression 04/09/2015 Last Documented On 6 10:21AM ; [facility] No recent change in medical history 09/20 Last Documented On 5 11:32AM ; [facility] No exposure to venereal disease per pt 0 06/18/2011 Last Documented On 2 5:37PM ; [facility] Result: normal GC/CT CULTURES NEGATIVE 0 06/18/2011 Last Documented On 2 4:42PM ; [facility] Vaginal delivery once 02/16/2011 Last Documented On 1 10:49PM ; [facility] History of cervical dysplasia 02/16/2011 Last Documented On 1 10:49PM ; [facility] History of urinary tract infection 02/16 Last Documented On 1 10:49PM ; [facility] Aborta 4 02/16/2011 Last Documented On 1 10:49PM ; [facility] Family History Includes: Family History in patient's chart Description Last Updated First child named 10/12/2006 vaginal TCK 04/05/2017 Last Documented On 8 2:06PM ; [facility] Second child named 10/25/15 TCK emergency c/s 04/05/2017 Last Documented On 8 2:06PM ; [facility] mom with skin cancer 04/05/2017 Last Documented On 8 2:06PM ; [facility] Family history of diabetes mellitus FAMI LY HX OF 10/12/2014 Last Documented On 5 11:32AM ; [facility] Family history of heart disease FAMILY H X OF 10/12/2014 Last Documented On 5 11:32AM ; [facility] Family history of hypercholesterolemia F AMILY HX OF 10/12/2014 Last Documented On 5 11:32AM ; [facility] Family history of hypertension FAMILY HX OF 10/12/2014 Last Documented On 5 11:32AM ; [facility] Family history of malignant neoplasm of the large intestine paternal GRANDFATHER 10/12/2014 Last Documented On 5 11:32AM ; [facility] No family history of malignant female br east neoplasm 10/12/2014 Last Documented On 5 11:32AM ; [facility] No family history of malignant neoplasm of the ovary 10/12/2014 Last Documented On 5 11:32AM ; [facility] No family history of uterine cancer 09/20 Last Documented On 5 11:32AM ; [facility] Family history unchanged 10/12/2014 Last Documented On 5 11:32AM ; [facility] Review of Systems [...] Resolved Last Documented On 04/09/2015 9:39AM ; [facility] Note: THROW-UP AND PASS OUT Clinical Notes Includes: Signed Clinical Notes starting from 04/10/2022 No Clinical Notes Recorded
--- OUTSIDE RECORDS SUMMARY | 2024-05-16 09:20 | XMS_ITS | Referral Summary ---
Author Organization [facility] Address [address] [place] [address] [place] [address] Care Team Providers Care Senior Internet Sales Consultant Name Role Phone Unavailable Primary Care Provider Unavailabl e Source Comments [facility],non-owned Affiliates and Associated Physician Practices is amultiple site organization consisting of ambulatory clinics and hospital sitesin [place], [place], [place] and [place]. This disclosure is being madepursuant to the Care Everywhere program and may not contain all information available regarding this patient. Last updated 17.[facility] Medications * Be aware that medications may [...] 78.5 kg (173 lb) 04/29/2017 12:56 PM [facility] Height 167.6 cm (5' 6 ) 04/29/2017 12:56 PM [facility] Body Mass Index 27.92 04/29/2017 12:56 PM [facility] Plan of Treatment Not on file
--- OUTSIDE RECORDS SUMMARY | 2024-05-16 09:20 | XMS_ITS | Clinical Summary ---
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 Problems Includes: Problems addressed during this encounter and other active Problems All Visits Onset Date Resolved Date Provider Condition S tatus Depression 11/20/2015 ULISES KIDD MD Active Last Documented On 11/20/2015 1:24PM ; [facility] Note: Unchanged Gestational edema, third trimester 08/27/2015 ULISES KIDD MD Active Last Documented On 08/27/2015 3:49PM ; [facility] Note: Unchanged Maternal care for excess growth, third tri, fetus 1 08/27/2015 ULISES KIDD MD Active Last Documented On 08/27/2015 3:49PM ; [facility] Note: Unchanged Encounter for suprvsn of normal , third trimester 08/27/2015 ULISES KIDD MD Active Last Documented On 08/27/2015 3:49PM ; [facility] Note: Unchanged 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 RUDY COOPER RN SIMEON BC Active Last Documented On 3 1:54PM ; [facility] History of Cervical Dysplasia 12/27/2012 RUDY COOPER RN Cristy P BC Active Last Documented On 12/27/2012 2:21PM ; [facility] Note: Unchanged History of Urinary Tract Infection 12/27/2012 RUDY COOPER RN Cristy P BC Active Last Documented On 12/27/2012 2:21PM ; [facility] Note: Unchanged Smoking Cigarettes 12/27/2012 [...] 04/05/2017 2:06PM By ULISES KIDD MD ; [facility] TiZANidine HCl 4MG Oral Tablet 04/05/2017 Provider: Diagnosis: Last Documented On 8 1:25PM By ASH MORALES Eyal ; [facility] Diclofenac Sodium 75MG Oral Tablet, enteric coated Provider: Diagnosis: Last Documented On 8 1:25PM By ASH MORALES Eyal ; [facility] Stool Softener 100MG Oral Capsule, conventional 2017 Provider: Diagnosis: Last Documented On 8 1:27PM By AHS MORALES Eyal ; [facility] Tylenol with Codeine #4 300-60MG Oral Tablet 8 Provider: Diagnosis: Last Documented On 8 1:28PM By ASH MORALES Eyal ; [facility] Sertraline HCl 50 MG Tablet 03/02/2016 Provider: ULISES KIDD MD Diagnosis: Mental and behav rl disorders assoc with the puerperium, NEC One tablet daily Last Documented On 03/02/2016 4:47PM By ULISES KIDD MD ; [facility] Formula 27-1 MG Tablet 04/09/2015 Provider: ULISES KIDD MD Diagnosis: Encounter for roberts prvsn of normal , first trimester One tablet daily generic pnv with 1 mg folic acid, may substitute as needed to fill Last Documented On 04/09/2015 10:20AM By ULISES KIDD MD ; [facility] Medications Administered Includes: Administered Medications from [...] Resolved Last Documented On 04/09/2015 9:39AM ; [facility] Note: THROW-UP AND PASS OUT Clinical Notes Includes: Clinical Notes from this encounter No Clinical Notes Recorded
[2024-05-16 09:22] LABS: EDCOVIDSCREEN Negative (Negative); EDINFLUASCREEN Negative (Negative); EDINFLUBSCREEN Negative (Negative); EDSTREPNEGPOS1 Negative (Negative)
--- OUTSIDE RECORDS SUMMARY | 2024-05-16 09:22 | XMS_ITS | Clinical Summary ---
Author Organization [facility] Address [address] [place] [address] Phone Care Team Providers Care Pack Worker Name Role Phone Unavailable Unavailable Unavailable Reason [...] ed Last Documented On 05/27/2018 11:02AM ; [facility] Note: was Closed. History of Abnormal Pap Smear 04/09/2015 Unknown ULISES KIDD MD Resolved Last Documented On 05/27/2018 11:02AM ; [facility] Note: was Closed. History of Depression 04/09/2015 Unknown ULISES KIDD MD Resolved Last Documented On 05/27/2018 11:02AM ; [facility] Note: was Closed. Tobacco Use 04/09/2015 Unknown ULISES KIDD MD [facility] ed Last Documented On 05/27/2018 11:02AM ; [facility] Note: was Closed. History of Cervical Dysplasia 12/27/2012 RUDY COOPER RN SIMEON Active Last Documented On 12/27/2012 2:21PM ; [facility] Note: Unchanged History of Urinary Tract Infection 12/27/2012 RUDY COOPER RN SIMEON Active Last Documented On 12/27/2012 2:21PM ; [facility] Note: Unchanged Smoking Cigarettes 12/27/2012 RUDY GARCIA RN [facility] Active Last Documented On 12/27/2012 2:21PM ; [facility] Note: Unchanged - 1 PACK A DAY FOR TEN Y EARS Past Visits Onset Date Resolved Date Provider Condition Status Depression 11/20/2015 ULISES KIDD MD Active Last Documented On 11/20/2015 1:24PM ; [facility] Note: Unchanged Gestational edema, third trimester 08/27/2015 ULISES KIDD MD Active Last Documented On 08/27/2015 3:49PM ; [facility] Note: Unchanged Maternal care for excess growth, third tri, fetus 1 08/27/2015 ULISES KIDD MD Active Last Documented On 08/27/2015 3:49PM ; [facility] Note: Unchanged Encounter for suprvsn of normal , third trimester 08/27/2015 ULISES KIDD MD Active Last Documented On 08/27/2015 3:49PM ; [facility] Note: Unchanged 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 Patient to call the office in the meantime if she has other problems or questions. - Last Documented On 04/05/2017 2:06PM ; [facility] Instructions to patient Instructions for patient : B reast Self Exam discussed and technique reviewed Last Documented On 8 1:43PM ; [facility] Assessments Includes: Assessments from this encounter Findings - Fibrocystic disease of breast - Last Documented On 04/05/2017 2:06PM ; [facility] - NORMAL FEMALE EXAM - Last Documented On 04/05/2017 2:06PM ; [facility] Instructions Includes: Instructions from this encounter Instructions to patient Instructions for patient : B reast Self Exam discussed and technique reviewed Last Documented On 8 1:43PM ; [facility] Medical Equipment - Implanted Devices Includes: Current Devices No Medical Equipment Recorded Medications Includes: Medications discussed during this encounter and other current Medications Discontinued / Stopped on this date on 01/11/2017 Bactrim DS 800-160MG Oral Tablet Provider : Diagnosis: Last Documented On 8 1:25PM By ASH YOO ; [facility] Naproxen 500 MG OR TABS Provider: Diagnosis: Last Documented On 8 1:25PM By ASH YOO ; [facility] New / Renewed during this visit ULISES KIDD MD on 04/05/2017 Acyclovir 400MG Oral Tablet Provider: ULISES KIDD MD 30 day supply: 60 tablet, 2 refills Diagnosis: Si tabs 2 x per day x 5 days prn outbreaks. Pharmacy: [facility], [id number] - Last Documented On 04/05/2017 2:06PM By ULISES KIDD MD ; [facility] Current Medications (continue as prescribed) TiZANidine HCl 4MG Oral Tablet 04/05/2017 Provider: Diagnosis: Last Documented On 8 1:25PM By ASH YOO ; [facility] Diclofenac Sodium 75MG Oral Tablet, enteric coated Provider: Diagnosis: Last Documented On 8 1:25PM By ASH YOO ; [facility] Stool Softener 100MG Oral Capsule, conventional 2017 Provider: Diagnosis: Last Documented On 8 1:27PM By ASH YOO ; [facility] Tylenol with Codeine #4 300-60MG Oral Tablet 8 Provider: Diagnosis: Last Documented On 8 1:28PM By ASH YOO ; [facility] Sertraline HCl 50 MG Tablet 03/02/2016 Provider: ULISES KIDD MD Diagnosis: Mental and behav rl disorders assoc with the puerperium, NEC One tablet daily Last Documented On 03/02/2016 4:47PM By ULISES KIDD MD ; [facility] Formula 27-1 MG Tablet 04/09/2015 Provider: ULISES KIDD MD Diagnosis: Encounter for roberts prvsn of normal , first trimester One tablet daily generic pnv with 1 mg folic acid, may substitute as needed to fill Last Documented On 04/09/2015 10:20AM By ULISES KIDD MD ; [facility] Past Medications on file Premium Condoms Lubricated Miscellaneous 12/12/2015 - 01/11/2016 Provider: RUDY COOPER RN NP Diagnosis: Encounter for in itial prescription of other contraceptives as directed USE DIRECTED Last Documented On 6 1:53PM By RUDY WATERS ; [facility] Sulfamethoxazole-Trimethopri m 800-160 MG Tablet 12/03/2015 - 12/13/2015 Provider: RUDY IRIZARRY Diagnosis: Local infection of the skin and subcutaneous tissue, unsp One tablet twice a day ONE TAB 2 TIMES A DAY WIT H FOOD Last Documented On 6 9:26AM By RUDY WATERS ; [facility] Ibuprofen 600 MG Tablet 11/27/2015 - 12/02/2015 Provider: RUDY IRIZARRY Diagnosis: Local infection of the skin and subcutaneous tissue, unsp 1 every 4 - 6 hours as neede d atke as directed w/food Last Documented On 6 2:51PM By RUDY WATERS ; [facility] Fluconazole 150 MG Tablet 11/27/2015 - 11/29/2015 Provider: RUDY CLARK Diagnosis: Local infection of the skin and subcutaneous tissue, unsp 1 daily Pt. is to take 1 day 4 of antibiotics and 1 tablet day 7 Last Documented On 6 2:51PM By RUDY WATERS ; [facility] Cephalexin 500 MG Capsule, conventional 11/27/2015 - 12/04/2015 Provider: RUDY IRIZARRY Diagnosis: Local infection of the skin and subcutaneous tissue, unsp One tablet four times a day TAKE DIRECTED W/FOOD Last Documented On 6 2:51PM By RUDY WATERS ; [facility] Medications Administered Includes: Administered Medications from this encounter No Administered Medications Recorded Vital Signs Includes: Vital Signs from this encounter Vital Name 04/05/2017 01:17P Blood Pressure Sitting (mmHg) 110/80 Height (in) 65.5 Weight (lb) 171.25 Body Mass Index (kg/m2) 28.1 Body Surface Area (m2) 1.9 Last Documented: On 04/05/2017 1:25PM ; [facility] Results Includes: Results discussed during [...] 04/05/2017 Last Documented On 8 2:06PM ; [facility] The first insertion of an IUD was: was o n 10/16/2009: removed 10/12/2014; 04/05/2017 Last Documented On 8 2:06PM ; [facility] Alcohol use once a month sometimes 04/05 Last Documented On 8 2:06PM ; [facility] Marital history Engaged lives with lilia e for years 04/05/2017 Last Documented On 8 2:06PM ; [facility] Not using drugs 04/05/2017 Last Documented On 8 2:06PM ; [facility] Sexually active with 1 partners in the l ast year 02/10/2016 Last Documented On 8 1:16PM ; [facility] Education history 12/12/2015 Last Documented On 8 1:16PM ; [facility] Not exercising regularly 12/12/2015 Last Documented On 8 1:16PM ; [facility] Personal history 12/12/2015 Last Documented On 8 1:16PM ; [facility] Sexually active 12/12/2015 Last Documented On 8 1:16PM ; [facility] Sexually active 5 weeks sperm acide 12/12/2015 Last Documented On 8 1:16PM ; [facility] Tobacco use 04/09/2015 Last Documented On 8 1:16PM ; [facility] Smoking Status Unknown Procedures and Surgical History Includes: Procedures from this encounter Procedures Code Diagnosis Performing Provider Service L ocation Service Date Clinical summary provided to patient Last Documented On 8 1:43PM ; [facility] cervical Pap smear 03922 Last Documented On 8 1:43PM ; [facility] Surgical History Last Updated Previous colposcopy she thinks years ago with TCK 04/05/2017 Last Documented On 8 2:06PM ; [facility] History of tubal ligation 04/05/2017 Last Documented On 8 2:06PM ; [facility] Dilation + Curettage 02/16/2011 Last Documented On 8 1:16PM ; [facility] History of appendectomy 02/16/2011 Last Documented On 8 1:16PM ; [facility] History of Loop electrode excision of ce rvix (LEEP) 402/16/2011 Last Documented On 8 1:16PM ; [facility] Medical History Includes: Medical History addressed during this encounter Description Last Updated A recent methicillin-resista nt Staphylococcus aureus infection : post section in 2015; 04/05/2017 Last Documented On 8 2:06PM ; [facility] section 10/25/2015 Emergency c/s TCK 04/05/2017 Last Documented On 8 2:06PM ; [facility] 6 04/05/2017 Last Documented On 8 2:06PM ; [facility] Para 2 04/05/2017 Last Documented On 8 2:06PM ; [facility] LMP: 03/18/2017 04/05/2017 Last Documented On 8 2:06PM ; [facility] Last pap smear date 03/02/2016 8 Last Documented On 8 2:06PM ; [facility] PRIMARY CARE PROVIDER : jada jacinto NP 03/02/2016 Last Documented On 8 1:16PM ; [facility] Status post tubal ligation 02/10/2016 Last Documented On 8 1:16PM ; [facility] Not using contraception has signed BTL 0 12/12/2015 Last Documented On 8 1:16PM ; [facility] Sexually active 12/12/2015 Last Documented On 8 1:16PM ; [facility] History of Pap smear done 10/12/2014 09/0 09/2015 Last Documented On 8 1:16PM ; [facility] History of Abnormal Pap Smear LEEP cone 06/20/2008: SHILOH I 04/09/2015 Last Documented On 8 1:16PM ; [facility] History of depression 10 y ol d, meds 14-20 y old; with post depression: zoloft, lexapro 04/09/2015 Last Documented On 8 1:16PM ; [facility] Result: normal GC/CT CULTURES NEGATIVE 0 06/18/2011 Last Documented On 8 1:16PM ; [facility] Vaginal delivery once 02/16/2011 Last Documented On 8 1:16PM ; [facility] History of cervical dysplasia 02/16/2011 Last Documented On 8 1:54PM ; [facility] History of urinary tract infection 02/16 Last Documented On 8 1:54PM ; [facility] Aborta 4 02/16/2011 Last Documented On 8 1:16PM ; [facility] Family History Includes: Family History addressed during this encounter Description Last Updated First child named 10/12/2006 vaginal TCK 04/05/2017 Last Documented On 8 2:06PM ; [facility] Second child named 10/25/15 TCK emergency c/s 04/05/2017 Last Documented On 8 2:06PM ; [facility] mom with skin cancer 04/05/2017 Last Documented On 8 2:06PM ; [facility] Family history of diabetes mellitus FAMI LY HX OF 10/12/2014 Last Documented On 8 1:16PM ; [facility] Family history of heart disease FAMILY H X OF 10/12/2014 Last Documented On 8 1:16PM ; [facility] Family history of hypercholesterolemia F AMILY HX OF 10/12/2014 Last Documented On 8 1:16PM ; [facility] Family history of hypertension FAMILY HX OF 10/12/2014 Last Documented On 8 1:16PM ; [facility] Family history of malignant neoplasm of the large intestine paternal GRANDFATHER 10/12/2014 Last Documented On 8 1:16PM ; [facility] Review of Systems Includes: [...] Resolved Last Documented On 04/09/2015 9:39AM ; [facility] Note: THROW-UP AND PASS OUT Encounters Encounter Provider Location Date Check-In Time Check-Out Time Diagnosis GOPHERMAN EXAM ULISES KIDD MD [facility] 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
--- OUTSIDE RECORDS SUMMARY | 2024-05-16 09:22 | XMS_ITS ---
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 Name Role Phone Unavailable Unavailable Unavailable Problems Includes: Active, inactive, and resolved Problems All Visits Onset Date Resolved Date Provider Condition S tatus Depression 11/20/2015 ULISES KIDD MD Active Last Documented On 11/20/2015 1:24PM ; [facility] Note: Unchanged Gestational edema, third trimester 08/27/2015 ULISES KIDD MD Active Last Documented On 08/27/2015 3:49PM ; [facility] Note: Unchanged Maternal care for excess growth, third tri, fetus 1 08/27/2015 ULISES KIDD MD Active Last Documented On 08/27/2015 3:49PM ; [facility] Note: Unchanged Encounter for suprvsn of normal , third trimester 08/27/2015 ULISES KIDD MD Active Last Documented On 08/27/2015 3:49PM ; [facility] Note: Unchanged Alcohol Use 04/09/2015 Unknown ULISES KIDD MD Resolved Last Documented On 05/27/2018 11:02AM ; [facility] Note: was Closed. Exposure To Contagious Viral Disease 04/09/2015 Unknown ULISES KIDD MD Resolved Last Documented On 05/27/2018 11:02AM ; [facility] Note: was Closed. History of Abnormal Pap Smear 04/09/2015 Unknown ULISES KIDD MD Resolved Last Documented On 05/27/2018 11:02AM ; [facility] Note: was Closed. History of Depression 04/09/2015 Unknown ULISES KIDD MD Resolved Last Documented On 05/27/2018 11:02AM ; [facility] Note: was Closed. Tobacco Use 04/09/2015 Unknown ULISES KIDD MD Resolved Last Documented On 05/27/2018 11:02AM ; [facility] Note: was Closed. Possible Varicella Susceptibility (No Prior History) 04/09/2015 Unknown RUDY COOPER RN NP Resolved Last Documented On 6 2:17PM ; [facility] Reported Previous Std 04/09/2015 Unknown ULISES KIDD MD Resolved Last Documented On 05/27/2018 11:02AM ; [facility] Note: was Closed. 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 OSEAS COOPER RN [facility] Active Last Documented On 3 1:54PM ; [facility] History of Cervical Dysplasia 12/27/2012 RUDY COOPER RN N P BC Active Last Documented On 12/27/2012 2:21PM ; [facility] Note: Unchanged History of Urinary Tract Infection 12/27/2012 RUDY COOPER RN N P BC Active Last Documented On 12/27/2012 2:21PM ; [facility] Note: Unchanged Smoking Cigarettes 12/27/2012 RUDY GARCIA RN [facility] Active Last Documented On 12/27/2012 2:21PM ; [facility] Note: Unchanged - 1 PACK A DAY FOR TEN Y EARS Plan of Treatment Findings Encounter Date Ordered Clinical summary pro vided to patient 1 WK CK-UP with RUDY COOPER RN [facility] 12/12/2015 Last Documented On 6 2:17PM ; [facility] Ordered Clinical summary pro vided to patient PROBLEM VISIT with RUDY COOPER RN [facility] 11/27/2015 Last Documented On 6 3:00PM ; [facility] Ordered Clinical summary pro vided to patient HR CONSULTANT EXAM with RUDY COOPER RN SIMEON 10/12/2014 Last Documented On 5 11:32AM ; [facility] She will let us know if she has any other problems and present back in one year for [employer] NEW HR CONSULTANT EXAM with ULISES KIDD MD 02/16/2011 Last Documented On 1 10:49PM ; [facility] Referrals To Diagnosis Dermatology JASON PATEL MD Acne, uns pecified Last Documented On 7 9:47AM ; [facility] Instructions to patient Instructions for patient : B reast Self Exam discussed and technique reviewed Last Documented On 8 1:43PM ; [facility] Instructions for patient : B reast Self Exam discussed and technique reviewed Last Documented On 5 11:09AM ; [facility] Use a condom during sexual i ntercourse Last Documented On 5 11:09AM ; [facility] Instructed to call if excess uche bleeding or abdominal/pelvic pain Last Documented On 5 11:09AM ; [facility] Recommend diet and exercise at least 30 min three times per week Last Documented On 5 11:09AM ; [facility] Instructions for patient : B reast Self Exam discussed and technique reviewed Last Documented On 3 2:14PM ; [facility] Use a condom during sexual i ntercourse Last Documented On 3 2:14PM ; [facility] Instructed to call if excess uche bleeding or abdominal/pelvic pain Last Documented On 3 2:14PM ; [facility] Recommend diet and exercise at least 30 min three times per week Last Documented On 3 2:14PM ; [facility] Recommend CBC, TSH, fasting glucose, fasting lipid panel if patient aged 25 or older Last Documented On 3 2:14PM ; [facility] Recommend preventative vacci nation including but not limited to influenza/flu vaccine, DTP, Rubella, Hepatitis B vaccination series Last Documented On 3 2:14PM ; [facility] Instructions for patient : B reast Self Exam discussed and technique reviewed Last Documented On 1 10:37PM ; [facility] Education and Decision Aids were provided during visit for: Discussed smoking and drug u se Last Documented On 5 11:09AM ; [facility] Patient education RE: randall rossi signals associated with hormonal contraceptive use including abdominal, chest, or leg pain, headaches or visual disturbances Last Documented On 5 11:09AM ; [facility] Patient Education: Daily junior cium and vitamin D Last Documented On 5 11:09AM ; [facility] control consent review ed and signed Last Documented On 5 11:09AM ; [facility] Discussed use of seat belts Last Documented On 3 2:14PM ; [facility] Discussed smoking and drug u se Last Documented On 3 2:14PM ; [facility] Discussed risk-taking behavi or Last Documented On 3 2:14PM ; [facility] Patient education RE: randall rossi signals associated with hormonal contraceptive use including abdominal, chest, or leg pain, headaches or visual disturbances Last Documented On 3 2:14PM ; [facility] Patient Education: Daily junior cium and vitamin D Last Documented On 3 2:14PM ; [facility] Pt initially wanted the IUD removed [...] agreed Last Documented On 2 5:36PM ; [facility] Assessments Includes: Assessments for all patient encounters Findings Encounter Date Fibrocystic disease of breast HR CONSULTANT EXAM with ULISES KIDD MD 04/05/2017 Last Documented On 8 2:06PM ; [facility] NORMAL FEMALE EXAM HR CONSULTANT EXAM with ULISES KIDD MD 04/05/2017 Last Documented On 8 2:06PM ; [facility] POST OP VISIT POST OP VISIT with ULISES Donaldson MD 03/02/2016 Last Documented On 6 4:49PM ; [facility] depression POST OP VISIT with ULISES AKINS MD 03/02/2016 Last Documented On 6 4:49PM ; [facility] POST OP VISIT 2 WK CK-UP with ULISES Harley 02/10/2016 Last Documented On 6 4:24PM ; [facility] Methicillin resistant staphy lococcus aureus infection day 2 Bactrim POST OP VISIT with RUDY COOPER RN [facility] 12/05/2015 Last Documented On 6 3:30PM ; [facility] depression well c ontrolled w/current rx POST OP VISIT with RUDY COOPER RN [facility] 12/05/2015 Last Documented On 6 3:30PM ; [facility] Routine history and physical POST OP VISIT with RUDY COOPER RN [facility] 12/05/2015 Last Documented On 6 3:30PM ; [facility] Infections of skin and subcu taneous tissue PROBLEM VISIT with RUDY COOPER RN [facility] 11/27/2015 Last Documented On 6 3:00PM ; [facility] depression resolv ing per pt report w/Sertraline use PROBLEM VISIT with RUDY COOPER RN [facility] 11/27/2015 Last Documented On 6 3:00PM ; [facility] depression PROBLEM VISIT with ULISES AKINS MD 11/20/2015 Last Documented On 6 1:24PM ; [facility] POST OP VISIT POST OP VISIT with ULISES Donaldson MD 11/08/2015 Last Documented On 6 11:52AM ; [facility] Contraceptive management HR CONSULTANT EXAM with RUDY GARCIA RN [facility] 10/12/2014 Last Documented On 5 11:32AM ; [facility] Risk: tobacco use HR CONSULTANT EXAM with RUDY COOPER RN [facility] 10/12/2014 Last Documented On 5 11:32AM ; [facility] Routine gynecological exam HR CONSULTANT EXAM with RUDY COOPER RN [facility] 10/12/2014 Last Documented On 5 11:32AM ; [facility] Contraceptive surveillance IUD INSITU AN 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 LINE 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 EXAM with RUDY COOPER RN [facility] 12/27/2012 Last Documented On 3 2:22PM ; [facility] Risk: tobacco use ANNUAL PRINT LINE TAILER EXAM with RUDY GARCIA RN [facility] 12/27/2012 Last Documented On 3 2:22PM ; [facility] Routine gynecological exam ANNUAL PRINT LINE TAILER EXAM with RUDY COOPER RN [facility] 12/27/2012 Last Documented On 3 2:22PM ; [facility] Dyspareunia -- resolved 2 WK CK-UP with ULISES MARTE MD 06/18/2011 Last Documented On 2 4:42PM ; [facility] Checking intrauterine device (IUD) PROBLEM VISIT with ULISES KIDD MD 06/04/2011 Last Documented On 2 5:37PM ; [facility] Dyspareunia PROBLEM VISIT with ULISES Donaldson MD 06/04/2011 Last Documented On 2 5:37PM ; [facility] Vaginal candidiasis PROBLEM VISIT with ULISES PALMER MD 06/04/2011 Last Documented On 2 5:37PM ; [facility] Breast fibrocystic disease NEW HR CONSULTANT EXAM with ULISES KIDD MD 02/16/2011 Last Documented On 1 10:49PM ; [facility] Checking intrauterine device (IUD) NEW HR CONSULTANT EXAM with ULISES KIDD MD 02/16/2011 Last Documented On 1 10:49PM ; [facility] NORMAL FEMALE EXAM NEW HR CONSULTANT EXAM with ULISES JIMENEZ MD 02/16/2011 Last Documented On 1 10:49PM ; [facility] Instructions Includes: Instructions for all patient encounters Instructions to patient Instructions for patient : B reast Self Exam discussed and technique reviewed Last Documented On 8 1:43PM ; [facility] Instructions for patient : B reast Self Exam discussed and technique reviewed Last Documented On 5 11:09AM ; [facility] Use a condom during sexual i ntercourse Last Documented On 5 11:09AM ; [facility] Instructed to call if excess uche bleeding or abdominal/pelvic pain Last Documented On 5 11:09AM ; [facility] Recommend diet and exercise at least 30 min three times per week Last Documented On 5 11:09AM ; [facility] Instructions for patient : B reast Self Exam discussed and technique reviewed Last Documented On 3 2:14PM ; [facility] Use a condom during sexual i ntercourse Last Documented On 3 2:14PM ; [facility] Instructed to call if excess uche bleeding or abdominal/pelvic pain Last Documented On 3 2:14PM ; [facility] Recommend diet and exercise at least 30 min three times per week Last Documented On 3 2:14PM ; [facility] Recommend CBC, TSH, fasting glucose, fasting lipid panel if patient aged 25 or older Last Documented On 3 2:14PM ; [facility] Recommend preventative vacci nation including but not limited to influenza/flu vaccine, DTP, Rubella, Hepatitis B vaccination series Last Documented On 3 2:14PM ; [facility] Instructions for patient : B reast Self Exam discussed and technique reviewed Last Documented On 1 10:37PM ; [facility] Education and Decision Aids were provided during visit for: Discussed smoking and drug u se Last Documented On 5 11:09AM ; [facility] Patient education RE: [email or web address] flo signals associated with hormonal contraceptive use including abdominal, chest, or leg pain, headaches or visual disturbances Last Documented On 5 11:09AM ; [facility] Patient Education: Daily junior cium and vitamin D Last Documented On 5 11:09AM ; [facility] control consent review ed and signed Last Documented On 5 11:09AM ; [facility] Discussed use of seat belts Last Documented On 3 2:14PM ; [facility] Discussed smoking and drug u se Last Documented On 3 2:14PM ; [facility] Discussed risk-taking behavi or Last Documented On 3 2:14PM ; [facility] Patient education RE: dorisrubén g signals associated with hormonal contraceptive use including abdominal, chest, or leg pain, headaches or visual disturbances Last Documented On 3 2:14PM ; [facility] Patient Education: Daily junior cium and vitamin D Last Documented On 3 2:14PM ; [facility] Pt initially wanted the IUD [...] agreed Last Documented On 2 5:36PM ; [facility] Medical Equipment - Implanted Devices Includes: [...] On 8 1:25PM By ASH YOO ; [facility] Stool Softener 100MG [...] ULISES KIDD MD ; [facility] Past Medications on file Bactrim DS 800-160MG Oral Tablet 01/11/2017 - 04/05/19 18 Provider: Diagnosis: Last Documented On 8 1:25PM By ASH YOO ; [facility] Premium Condoms Lubricated Miscellaneous 12/12/2015 - 01/11/2016 Provider: RUDY CLARK Diagnosis: Encounter for in itial prescription of other contraceptives as directed USE DIRECTED Last Documented On 6 1:53PM By RUDY WATERS ; [facility] Sertraline HCl 50 MG Tablet 12/12/2015 - 03/02/2016 Provider: RUDY CLARK Diagnosis: Mental and behav rl disorders assoc with the puerperium, NEC One tablet daily Last Documented On 03/02/2016 4:46PM By ULISES KIDD MD ; [facility] Sertraline HCl 50 MG Tablet 12/05/2015 - 12/12/2015 Provider: RUDY CLARK Diagnosis: Mental and behav rl disorders assoc with the puerperium, NEC One tablet daily Last Documented On 6 1:55PM By RUDY WATERS ; [facility] Sulfamethoxazole-Trimethopri m 800-160 MG Tablet 12/03/2015 - 12/13/2015 Provider: RUDY CLARK Diagnosis: Local infection of the skin and subcutaneous tissue, unsp One tablet twice a day ONE TAB 2 TIMES A DAY WIT H FOOD Last Documented On 6 9:26AM By RUDY WATERS ; [facility] Ibuprofen 600 MG Tablet 11/27/2015 - 12/02/2015 Provider: RUDY CLARK Diagnosis: Local infection of the skin and subcutaneous tissue, unsp 1 every 4 - 6 hours as neede d atke as directed w/food Last Documented On 6 2:51PM By RUDY WATERS ; [facility] Fluconazole 150 MG Tablet 11/27/2015 - 11/29/2015 Provider: RUDY CLARK Diagnosis: Local infection of the skin and subcutaneous tissue, unsp 1 daily Pt. is to take 1 day 4 of antibiotics and 1 tablet day 7 Last Documented On 6 2:51PM By RUDY WATERS ; [facility] Cephalexin 500 MG Capsule, conventional 11/27/2015 - 12/04/2015 Provider: RUDY CLARK Diagnosis: Local infection of the skin and subcutaneous tissue, unsp One tablet four times a day TAKE DIRECTED W/FOOD Last Documented On 6 2:51PM By RUDY WATERS ; [facility] Sertraline HCl 50 MG Tablet 11/20/2015 - 12/05/2015 Provider: ULISES Harley Diagnosis: Mental and behav rl disorders assoc with the puerperium, NEC One tablet daily Last Documented On 6 2:09PM By RUDY WATERS ; [facility] Acyclovir 400 MG Tablet 09/10/2015 - 04/05/2017 Provider: ULISES Harley Diagnosis: Encounter for roberts prvsn of normal , third trimester One tablet twice a day Last Documented On 04/05/2017 2:05PM By ULISES KIDD MD ; [facility] NuvaRing 0.12-0.015 MG/24HR Ring 01/07/2015 - 01/28/2015 Provider: RUDY IRIZARRY Diagnosis: Encounter for ot h general cnsl and advice on contraception as directed INSERT 1 RING IN TO VAGINA FIRST WEDNESDAY NEXT MENSES X 3 WEEKS REMOVE X 1 WEEK THEN REPLACE WITH NEW Last Documented On 5 1:08PM By RUDY WATERS ; [facility] NuvaRing 0.12-0.015 MG/24HR Ring 01/07/2015 - 01/04/2015 Provider: RUDY IRIZARRY Diagnosis: Encounter for ot h general cnsl and advice on contraception as directed INSERT 1 RING IN TO VAGINA FIRST WEDNESDAY NEXT MENSES X 3 WEEKS REMOVE X 1 WEEK THEN REPLACE WITH NEW Last Documented On 5 11:05AM By RUDY WATERS ; [facility] Nitrofurantoin Macrocrystal 100 MG Capsule 10/23/2014 - 11/20/2015 Provider: RUDY IRIZARRY BC Diagnosis: URIN TRACT INFEC TION NOS One tablet twice a day USE DIRECTED W/FOOD Last Documented On 6 1:03PM By SHANDA GARCIA LPN ; [facility] NuvaRing 0.12-0.015 MG/24HR Ring 10/12/2014 - 01/04/2015 Provider: RUDY IRIZARRY BC Diagnosis: OTHER FAMILY CAPRICE NNING ADVICE NEC as directed INSERT 1 RING IN TO VAGINA FIRST WEDNESDAY NEXT MENSES X 3 WEEKS REMOVE X 1 WEEK THEN REPLACE WITH NEW Last Documented On 5 10:22AM By RUDY WATERS ; [facility] Diflucan 150 MG OR TABS 06/04/2011 - 11/20/2015 Provid er: ULISES KIDD MD Diagnosis: one tablet po, prn yeast infection Last Documented On 6 1:04PM By SHANDA GARCIA LPN ; [facility] Imitrex 25 MG OR TABS 02/16/2011 - 10/12/2014 Provider : Diagnosis: Last Documented On 5 11:31AM By RUDY WATERS ; [facility] Naproxen 500 MG OR TABS 02/16/2011 - 04/05/2017 Provid er: Diagnosis: Last Documented On 8 1:25PM By ASH YOO ; [facility] Mirena (52 MG) 20 MCG/24HR IU IUD 02/16/2011 - 015 Provider: Diagnosis: IMPLANTED Last Documented On 5 11:31AM By RUDY WATERS ; [facility] Medications Administered Includes: Administered Medications [...] 04/05/2017 Last Documented On 8 2:06PM ; [facility] The first insertion of an IUD was: was o n 10/16/2009: removed 10/12/2014; 04/05/2017 Last Documented On 8 2:06PM ; [facility] Alcohol use once a month sometimes 04/05 Last Documented On 8 2:06PM ; [facility] Marital history Engaged lives with fianc e for years 04/05/2017 Last Documented On 8 2:06PM ; [facility] Not using drugs 04/05/2017 Last Documented On 8 2:06PM ; [facility] Sexually active with 1 partners in the l ast year 02/10/2016 Last Documented On 6 4:24PM ; [facility] Education history 12/12/2015 Last Documented On 6 2:17PM ; [facility] Not exercising regularly 12/12/2015 Last Documented On 6 2:17PM ; [facility] Personal history 12/12/2015 Last Documented On 6 2:17PM ; [facility] Sexually active 12/12/2015 Last Documented On 6 2:17PM ; [facility] Sexually active 5 weeks sperm acide 12/12/2015 Last Documented On 6 2:17PM ; [facility] Single 12/12/2015 Last Documented On 6 2:17PM ; [facility] Smoking status : Current everyday smoker 12/12/2015 Last Documented On 6 2:17PM ; [facility] Social history unchanged 12/12/2015 Last Documented On 6 2:17PM ; [facility] Tobacco use 04/09/2015 Last Documented On 6 10:41AM ; [facility] Procedures and Surgical History Surgical History Last Updated Previous colposcopy she thinks years ago with TCK 04/05/2017 Last Documented On 8 2:06PM ; [facility] History of tubal ligation 04/05/2017 Last Documented On 8 2:06PM ; [facility] Surgical history unchanged 10/12/2014 Last Documented On 5 11:32AM ; [facility] Dilation + Curettage 02/16/2011 Last Documented On 1 10:49PM ; [facility] History of appendectomy 02/16/2011 Last Documented On 1 10:49PM ; [facility] History of Loop electrode excision of ce rvix (LEEP) 06-20-08 02/16/2011 Last Documented On 1 10:49PM ; [facility] Medical History Includes: Medical History in patient's chart Description Last Updated A recent methicillin-resista nt Staphylococcus aureus infection : post section in 2016; 04/05/2017 Last Documented On 8 2:06PM ; [facility] section 10/25/2015 Emergency c/s TCK 04/05/2017 Last Documented On 8 2:06PM ; [facility] 6 04/05/2017 Last Documented On 8 2:06PM ; [facility] Para 2 04/05/2017 Last Documented On 8 2:06PM ; [facility] LMP: 03/18/2017 04/05/2017 Last Documented On 8 2:06PM ; [facility] Last pap smear date 03/02/2016 8 Last Documented On 8 2:06PM ; [facility] PRIMARY CARE PROVIDER : jada jacinto NP 03/02/2016 Last Documented On 6 4:49PM ; [facility] Status post tubal ligation 02/10/2016 Last Documented On 6 4:24PM ; [facility] Not using contraception has signed BTL 0 12/12/2015 Last Documented On 6 2:17PM ; [facility] Sexually active 12/12/2015 Last Documented On 6 2:17PM ; [facility] is bottle-feeding 11/27/2015 Last Documented On 6 3:00PM ; [facility] History of Pap smear done 10/12/2014 090 09/2015 Last Documented On 6 3:00PM ; [facility] History of Abnormal Pap Smear 04/09/2015 Last Documented On 6 10:21AM ; [facility] History of depression 04/09/2015 Last Documented On 6 10:21AM ; [facility] No recent change in medical history 09/20 Last Documented On 5 11:32AM ; [facility] No exposure to venereal disease per pt 0 06/18/2011 Last Documented On 2 5:37PM ; [facility] Result: normal GC/CT CULTURES NEGATIVE 0 06/18/2011 Last Documented On 2 4:42PM ; [facility] Vaginal delivery once 02/16/2011 Last Documented On 1 10:49PM ; [facility] History of cervical dysplasia 02/16/2011 Last Documented On 1 10:49PM ; [facility] History of urinary tract infection 02/16 Last Documented On 1 10:49PM ; [facility] Aborta 4 02/16/2011 Last Documented On 1 10:49PM ; [facility] Family History Includes: Family History in patient's chart Description Last Updated First child named 10/12/2006 vaginal TCK 04/05/2017 Last Documented On 8 2:06PM ; [facility] Second child named 10/25/15 TCK emergency c/s 04/05/2017 Last Documented On 8 2:06PM ; [facility] mom with skin cancer 04/05/2017 Last Documented On 8 2:06PM ; [facility] Family history of diabetes mellitus FAMI LY HX OF 10/12/2014 Last Documented On 5 11:32AM ; [facility] Family history of heart disease FAMILY H X OF 10/12/2014 Last Documented On 5 11:32AM ; [facility] Family history of hypercholesterolemia F AMILY HX OF 10/12/2014 Last Documented On 5 11:32AM ; [facility] Family history of hypertension FAMILY HX OF 10/12/2014 Last Documented On 5 11:32AM ; [facility] Family history of malignant neoplasm of the large intestine paternal GRANDFATHER 10/12/2014 Last Documented On 5 11:32AM ; [facility] No family history of malignant female br east neoplasm 10/12/2014 Last Documented On 5 11:32AM ; [facility] No family history of malignant neoplasm of the ovary 10/12/2014 Last Documented On 5 11:32AM ; [facility] No family history of uterine cancer 09/20 Last Documented On 5 11:32AM ; [facility] Family history unchanged 10/12/2014 Last Documented On 5 11:32AM ; [facility] Review of Systems Review of [...] Resolved Last Documented On 04/09/2015 9:39AM ; [facility] Note: THROW-UP AND PASS OUT Clinical Notes Includes: Signed Clinical Notes starting from 04/10/2022 No Clinical Notes Recorded
--- OUTSIDE RECORDS SUMMARY | 2024-05-16 09:22 | XMS_ITS ---
Care Plan - [facility] Created on: May 16, 2024 GISSELL DOMINGO : 1985 Sex: Female Author Organization [facility] Address [address] [place] [address] Phone Care Team Providers Care Ginner Name Role Phone Unavailable Unavailable Unavailable
--- OUTSIDE RECORDS SUMMARY | 2024-05-16 09:22 | XMS_ITS | Clinical Summary ---
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 Problems Includes: Problems addressed during this encounter and other active Problems All Visits Onset Date Resolved Date Provider Condition S tatus Depression 11/20/2015 ULISES KIDD MD Active Last Documented On 11/20/2015 1:24PM ; [facility] Note: Unchanged Gestational edema, third trimester 08/27/2015 ULISES KIDD MD Active Last Documented On 08/27/2015 3:49PM ; [facility] Note: Unchanged Maternal care for excess growth, third tri, fetus 1 08/27/2015 ULISES KIDD MD Active Last Documented On 08/27/2015 3:49PM ; [facility] Note: Unchanged Encounter for suprvsn of normal , third trimester 08/27/2015 LUISES KIDD MD Active Last Documented On 08/27/2015 3:49PM ; [facility] Note: Unchanged 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 RUDY COOPER RN SIMEON BC Active Last Documented On 3 1:54PM ; [facility] History of Cervical Dysplasia 12/27/2012 RUDY COOPER RN Cristy P BC Active Last Documented On 12/27/2012 2:21PM ; [facility] Note: Unchanged History of Urinary Tract Infection 12/27/2012 RUDY COOPER RN Cristy P BC Active Last Documented On 12/27/2012 2:21PM ; [facility] Note: Unchanged Smoking [...] 03/02/2016 4:47PM By ULISES KIDD MD ; [facility] Formula 27-1 MG Tablet 04/09/2015 Provider: ULISES [...] Resolved Last Documented On 04/09/2015 9:39AM ; [facility] Note: THROW-UP AND PASS OUT Clinical Notes Includes: Clinical Notes from this encounter No Clinical Notes Recorded
--- OUTSIDE RECORDS SUMMARY | 2024-05-16 09:22 | XMS_ITS | Clinical Summary ---
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 Problems Includes: Problems addressed during this encounter and other active Problems All Visits Onset Date Resolved Date Provider Condition S tatus Depression 11/20/2015 ULISES KIDD MD Active Last Documented On 11/20/2015 1:24PM ; [facility] Note: Unchanged Gestational edema, third trimester 08/27/2015 ULISES KIDD MD Active Last Documented On 08/27/2015 3:49PM ; [facility] Note: Unchanged Maternal care for excess growth, third tri, fetus 1 08/27/2015 ULISES KIDD MD Active Last Documented On 08/27/2015 3:49PM ; [facility] Note: Unchanged Encounter for suprvsn of normal , third trimester 08/27/2015 ULISES KIDD MD Active Last Documented On 08/27/2015 3:49PM ; [facility] Note: Unchanged 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 RUDY COOPER RN SIMEON BC Active Last Documented On 3 1:54PM ; [facility] History of Cervical Dysplasia 12/27/2012 RUDY COOPER RN Cristy P BC Active Last Documented On 12/27/2012 2:21PM ; [facility] Note: Unchanged History of Urinary Tract Infection 12/27/2012 RUDY COOPER RN Cristy P BC Active Last Documented On 12/27/2012 2:21PM ; [facility] Note: Unchanged Smoking [...] 03/02/2016 4:47PM By ULISES KIDD MD ; [facility] [...] Resolved Last Documented On 04/09/2015 9:39AM ; [facility] Note: THROW-UP AND PASS OUT Clinical Notes Includes: Clinical Notes from this encounter No Clinical Notes Recorded
--- OUTSIDE RECORDS SUMMARY | 2024-05-16 09:22 | XMS_ITS | Clinical Summary ---
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 Phone Unavailable Unavailable Unavailable Reason for Visit and Chief Complaint * PHONE CALL Problems Includes: Problems addressed during this encounter and other active Problems All Visits Onset Date Resolved Date Provider Condition S tatus Depression 11/20/2015 ULISES KIDD MD Active Last Documented On 11/20/2015 1:24PM ; [facility] Note: Unchanged Gestational edema, third trimester 08/27/2015 ULISES KIDD MD Active Last Documented On 08/27/2015 3:49PM ; [facility] Note: Unchanged Maternal care for excess growth, third tri, fetus 1 08/27/2015 ULISES KIDD MD Active Last Documented On 08/27/2015 3:49PM ; [facility] Note: Unchanged Encounter for suprvsn of normal , third trimester 08/27/2015 ULISES KIDD MD Active Last Documented On 08/27/2015 3:49PM ; [facility] Note: Unchanged 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 RUDY COOPER RN SIMEON Active Last Documented On 3 1:54PM ; [facility] History of Cervical Dysplasia 12/27/2012 RUDY COOPER RN Cristy P BC Active Last Documented On 12/27/2012 2:21PM ; [facility] Note: Unchanged History of Urinary Tract Infection 12/27/2012 RUYD COOPER RN Cristy P BC Active Last Documented On 12/27/2012 2:21PM ; [facility] Note: Unchanged Smoking Cigarettes [...] 04/05/2017 2:06PM By ULISES KIDD MD ; [facility] TiZANidine HCl 4MG Oral Tablet 04/05/2017 Provider: Diagnosis: Last Documented On 8 1:25PM By ASH MORALES Eyal ; [facility] Diclofenac Sodium 75MG Oral Tablet, enteric coated Provider: Diagnosis: Last Documented On 8 1:25PM By ASH MORALES Eyal ; [facility] Stool Softener 100MG Oral Capsule, conventional 2017 Provider: Diagnosis: Last Documented On 8 1:27PM By ASH MORALES Eyal ; [facility] Tylenol with Codeine #4 300-60MG Oral Tablet 8 Provider: Diagnosis: Last Documented On 8 1:28PM By ASH MORALES Eyal ; [facility] Sertraline HCl 50 MG Tablet 03/02/2016 Provider: ULISES KIDD MD Diagnosis: Mental and behav rl disorders assoc with the puerperium, NEC One tablet daily Last Documented On 03/02/2016 4:47PM By ULISES KIDD MD ; [facility] Formula 27-1 MG Tablet 04/09/2015 Provider: ULISES KIDD MD Diagnosis: Encounter for roberts prvsn of normal , first trimester One tablet daily generic pnv with 1 mg folic acid, may substitute as needed to fill Last Documented On 04/09/2015 10:20AM By ULISES KIDD MD ; [facility] Medications Administered Includes: Administered Medications from [...] Resolved Last Documented On 04/09/2015 9:39AM ; [facility] Note: THROW-UP AND PASS OUT Encounters Encounter Provider Location Date Check-In Time Check-Out Time Diagnosis * PHONE CALL ULISES KIDD MD 01/11/2017 3:10PM 11:59PM Clinical Notes Includes: Clinical Notes from this encounter No Clinical Notes Recorded
--- OUTSIDE RECORDS SUMMARY | 2024-05-16 09:22 | XMS_ITS | Clinical Summary ---
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 Includes: Problems addressed during this encounter and other active Problems All Visits Onset Date Resolved Date Provider Condition S tatus Depression 11/20/2015 ULISES KIDD MD Active Last Documented On 11/20/2015 1:24PM ; [facility] Note: Unchanged Gestational edema, third trimester 08/27/2015 ULISES KIDD MD Active Last Documented On 08/27/2015 3:49PM ; [facility] Note: Unchanged Maternal care for excess growth, third tri, fetus 1 08/27/2015 ULISES KIDD MD Active Last Documented On 08/27/2015 3:49PM ; [facility] Note: Unchanged Encounter for suprvsn of normal , third trimester 08/27/2015 ULISES KIDD MD Active Last Documented On 08/27/2015 3:49PM ; [facility] Note: Unchanged 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 RUDY COOPER RN SIMEON BC Active Last Documented On 3 1:54PM ; [facility] History of Cervical Dysplasia 12/27/2012 RUDY COOPER RN Cristy P BC Active Last Documented On 12/27/2012 2:21PM ; [facility] Note: Unchanged History of Urinary Tract Infection 12/27/2012 RUDY COOPER RN Cristy P BC Active Last Documented On 12/27/2012 2:21PM ; [facility] Note: Unchanged Smoking Cigarettes [...] 04/05/2017 2:06PM By ULISES KIDD MD ; [facility] TiZANidine HCl 4MG Oral Tablet 04/05/2017 Provider: Diagnosis: Last Documented On 8 1:25PM By ASH MORALES Eyal ; [facility] Diclofenac Sodium 75MG Oral Tablet, enteric coated Provider: Diagnosis: Last Documented On 8 1:25PM By ASH MORALES Eyal ; [facility] Stool Softener 100MG Oral Capsule, conventional 2017 Provider: Diagnosis: Last Documented On 8 1:27PM By ASH MORALES Eyal ; [facility] Tylenol with Codeine #4 300-60MG Oral Tablet 8 Provider: Diagnosis: Last Documented On 8 1:28PM By ASH MORALES Eyal ; [facility] Sertraline HCl 50 MG Tablet 03/02/2016 Provider: ULISES KIDD MD Diagnosis: Mental and behav rl disorders assoc with the puerperium, NEC One tablet daily Last Documented On 03/02/2016 4:47PM By ULISES KIDD MD ; [facility] Formula 27-1 MG Tablet 04/09/2015 Provider: ULISES KIDD MD Diagnosis: Encounter for roberts prvsn of normal , first trimester One tablet daily generic pnv with 1 mg folic acid, may substitute as needed to fill Last Documented On 04/09/2015 10:20AM By ULISES KIDD MD ; [facility] Medications Administered Includes: Administered Medications from [...] Documented On 04/09/2015 9:39AM ; [facility] Note: THROW-UP AND PASS OUT Clinical Notes Includes: Clinical Notes from this encounter No Clinical Notes Recorded
--- NOTE | 2024-05-16 09:41 | ED.GENADULT ---
HPI - General Adult General Chief complaint: Upper Respiratory Infection Stated complaint: Cough/Headache/Fever/Shortness of Breath Source: patient Mode of arrival: ambulatory Limitations: no limitations History of Present Illness HPI narrative: Patient presents for evaluation of sick symptoms since yesterday. Symptoms include fever, cough, body aches, and pleuritic chest discomfort. Her daughter is being evaluated here for similar symptoms. She was recently exposed to influenza. She does vape. She has taken OTC cough medication for her symptoms. Related Data Home Medications ?Medication ?Instructions ?Recorded ?Confirmed ?Last Taken ?Type aripiprazole 2 mg tablet mg 03/06/24 Unknown History cetirizine 10 mg tablet mg 03/06/24 Unknown History diclofenac sodium 50 mg mg PO 03/06/24 Unknown History tablet,delayed release gabapentin 300 mg capsule mg 03/06/24 Unknown History propranolol 20 mg tablet mg 03/06/24 Unknown History sertraline 100 mg tablet mg 03/06/24 Unknown History Allergies Allergy/AdvReac Type Severity Reaction Status Date / Time No Known Allergies Allergy Verified 03/06/24 17:46 Review of Systems Review of Systems: CONSTITUTIONAL: Reports fever and chills. EYES: Denies visual changes, redness, or discharge. ENT: Denies rhinorrhea, congestion, sore throat, or otalgia. CARDIOVASCULAR: Denies chest pain, palpitations, or edema. RESPIRATORY: Reports cough and pleuritic chest discomfort. Denies dyspnea. GASTROINTESTINAL: Denies abdominal pain, nausea, vomiting, or diarrhea. GENITOURINARY: Denies dysuria or hematuria. SKIN: Denies rash or itching. MUSCULOSKELETAL: Reports generalized body aches NEUROLOGIC: Denies headache, numbness, dizziness, or weakness. PSYCHIATRIC: Denies anxiety or depression. [facility] Past Medical History Medical History Concussion 2008 has headaches since Back pain Depression Anxiety Surgical History Surgical History History of placement of ear tubes as child Previous section H/O tubal ligation History of appendectomy Family History Family History Grandparent Carcinoma of colon Diabetes mellitus Mother Heart disease Father Cancer Social History Social History Smoking packs per day: 0.5 Smoking cigarettes per day: 10.0 Years smoked: 18 Smoking pack-years: 9.00 Smoking status: Current every day smoker Alcohol intake: current Alcohol use details: social Substance use: former Last use: back pain and headaches used Tylenol with Codeine prn Living arrangements: with family Gender identity (if verbalized by the patient): Female Exam Narrative: GENERAL: Well-appearing, well-nourished, and in no acute distress. HEAD: Normocephalic, atraumatic. EYES: PERRLA and EOMI. ENT: Nares clear, no rhinorrhea or epistaxis. Mucous membranes moist. Oropharynx without tonsillar hypertrophy exudate or other lesions. Bilateral TMs pearly aly nonbulging NECK: Supple. No adenopathy or masses. No carotid bruits or JVD CHEST: Clear to auscultation. No respiratory distress. No wheezes rales or rhonchi HEART: Regular rate and rhythm. No murmur heard. Normal peripheral pulses. ABDOMEN: Soft, nontender, nondistended, normal active bowel sounds. EXTREMITIES: Normal range of motion. No edema. SKIN: Warm, dry, no rash. NEURO: No focal deficits. Alert and oriented x3. PSYCH: Normal mood and affect. Course Course Emergency Course: This is a 39-year-old female who presented for evaluation of sick symptoms. Strep, COVID, flu were all negative. Exam is consistent with acute viral syndrome. Increase hydration. Cekn-[id number] agents for symptom management. Follow up with primary provider. Will DC with albuterol. Patient in agreement with plan of care. Level of Care: Express Care Visit Vital Signs Vital signs: Vital Signs Temperature 36.9 C 05/16/24 09:00 Pulse Rate 85 05/16/24 09:00 Respiratory Rate 18 05/16/24 09:00 Blood Pressure 106/59 L 05/16/24 09:00 Pulse Oximetry 99 05/16/24 09:00 Oxygen Delivery Room Air 05/16/24 09:00 Temperature 36.9 C 05/16/24 09:00 Pulse Rate 85 05/16/24 09:00 Respiratory Rate 18 05/16/24 09:00 Blood Pressure 106/59 L 02/25/25 09:00 Pulse Oximetry 99 05/16/24 09:00 Oxygen Delivery Room Air 05/16/24 09:00 Medical Decision Making Vital Signs Vital Signs: Vital Signs Temperature 36.9 C 05/16/24 09:00 Pulse Rate 85 05/16/24 09:00 Respiratory Rate 18 05/16/24 09:00 Blood Pressure 106/59 L 05/16/24 09:00 Pulse Oximetry 99 05/16/24 09:00 Oxygen Delivery Room Air 05/16/24 09:00 Temperature 36.9 C 05/16/24 09:00 Pulse Rate 85 05/16/24 09:00 Respiratory Rate 18 05/16/24 09:00 Blood Pressure 106/59 L 05/16/24 09:00 Pulse Oximetry 99 05/16/24 09:00 Oxygen Delivery Room Air 05/16/24 09:00 Lab Data Labs: Lab Results 05/16/24 Range/Units 09:19 POC Influenza A Ag Negative (Negative) POC Influenza B Ag Negative (Negative) POC SARS CoV-2 Ag Negative (Negative) POC Grp A Strep Screen Negative (Negative) Discharge Plan Discharge Clinical Impression: Acute viral syndrome Patient Disposition: Home, Self-Care Condition: Stable Instructions: Antibiotic Form, Upper Respiratory Infection (ED), Viral Syndrome (ED) Patient Language: Kyrgyz Prescriptions: New albuterol sulfate [Ventolin HFA] 90 mcg/actuation HFA aerosol inhaler 2 puff inhalation QID PRN (Reason: shortness of breath or wheezing) Qty: 8.5 0RF No Action cetirizine 10 mg tablet sertraline 100 mg tablet gabapentin 300 mg capsule diclofenac sodium 50 mg tablet,delayed release (DR/EC) PO propranolol 20 mg tablet aripiprazole 2 mg tablet Follow-up/Referrals: Carpenter,Lorin Hartley APN [Primary Care Provider] - Stand Alone Forms: Work/School Release IP Time of Disposition: 09:32
== END 2024-05-16 09:39 | disposition home or self-care (01) ==
PROVIDERS: Emergency Provider Nurse Practitioner; PCP Nurse Practitioner Family
DX: B34.9 Viral infection, unspecified (principal); Z20.822 Contact with and (suspected) exposure to COVID-19; F17.210 Nicotine dependence, cigarettes, uncomplicated
CPT/HCPCS: 87081; 87426; 87804; 87880; 99213; G0463